=== PATIENT | female | born 1940 | race Caucasian/White ===

== ENCOUNTER 2023-07-26 06:37 | Inpatient (IN) | payer MEDICARE, SELFPAY ==
[2023-07-25 19:33] VITALS: BP 100/66
[2023-07-25 20:07] LABS: % Basophils 0.5 % (0-2); % Eosinophils 1.2 % (0-6); % Immature Granulocytes 0.6 % (0-0.5); % Lymphocytes 11.9 % (20.5-51.1); % Monocytes 3.6 % (1.7-9.3); % Neutrophils 82.2 % (42.2-75.2); Absolute Basophils 0.1 10^3/uL (0-0.2); Absolute Eosinophils 0.1 10^3/uL (0-0.7); Absolute Immature Granulocytes 0.1 10^3/uL (0-0.05); Absolute Lymphocytes 1.2 10^3/uL (1.2-3.4); Absolute Monocytes 0.4 10^3/uL (0.1-0.6); Absolute Neutrophils 8.4 10^3/uL (1.4-6.5); Hematocrit 38.1 % (37.0-47.0); Hemoglobin 12.9 g/dL (12.0-16.0); Mean Corp Hgb Conc. 33.9 g/dL (33.0-37.0); Mean Corpuscular Volume 88.6 fL (81.0-99.0); Mean Platelet Volume 9.9 fL (7.4-10.4); Nucleated Red Blood Cells % 0 %; Platelet Count 240 10^3/uL (130-400); Red Cell Dist. Width 13.3 % (11.5-14.5); White Blood Cell Count 10.2 10^3/uL (4.8-10.8)
[2023-07-25 20:31] LABS: ALT (SGPT) 17 U/L (0-35); AST (SGOT) 20 U/L (14-36); Albumin 4.1 g/dl (3.5-5.0); Alkaline Phosphatase 71 U/L (38-126); Blood Urea Nitrogen 34 mg/dl (7-17); Calcium 9.8 mg/dl (8.4-10.2); Carbon Dioxide 23 mmol/L (22-30); Chloride 102 mmol/L (98-107); Glucose 131 mg/dl (70-99); Sodium 135 mmol/L (135-145); Total Bilirubin 0.5 mg/dl (0.2-1.3); Total Protein 6.9 g/dl (6.3-8.2); eGFR 49.55
[2023-07-25 20:37] LABS: Potassium 4.6 mmol/L (3.5-5.1)
[2023-07-25 22:41] VITALS: BP 141/70; BP 144/81; BP 156/85; PULSE 69; PULSE 78; PULSE 84
--- NOTE | 2023-07-25 22:41 | ED.GENMED ---
History of Present Illness
General
Chief Complaint: Dizziness
Source: patient and family
Exam Limitations: none
Time Seen by Provider: 07/25/23 21:56
Nursing documentation reviewed up to this point in time: agreed with
Travel History
Have you had any contact with someone who has COVID-19?: No
Do you have any symptoms of coronavirus? Fever > 100 degrees, chills, cough, shortness of breath, sore throat, loss of taste or smell, muscle aches, or headache?: No
History of Present Illness
History of Present Illness:
Pleasant 83-year-old female who presents with vertigo. She states that the room is spinning around her. She states that she awakened with the symptoms. She reports that they were sent around noon and persistent throughout the day. Patient has a
history of migraines but states that she did not have any headache today. She does report having a recent UTI.
Phy Exam
General Physical Exam
General Presentation: well appearing and no apparent distress
General Skin: warm and dry
General Habitus: normal
General Mental: alert
General Hydration: appears well hydrated
ENT Exam
ENT Exam: EOMI, pharynx normal, neck supple and normocephalic
Eye Exam
Eye Exam: PERRL, cornea clear and conjunctiva normal
Cardiovascular Exam
Cardiovascular Exam: regular rate/rhythm, no edema, no murmur and normal peripheral pulses
Pulmonary Exam
Pulmonary Exam: lungs clear, no respiratory distress, no rales, no crackles, no rhonchi, no stridor, no wheezing and no cough
Gastrointestinal Exam
Gastrointestinal Exam: normal bowel sounds, non tender, soft, no organomegaly, no pulsatile mass and non distended
Neurological Exam
Neurological Exam: alert, oriented x3, speech normal and other (dizziness)
Musculoskeletal Exam
Musculoskeletal Exam: full ROM and no edema
Skin Exam
Skin Exam: normal color, warm/dry, no rash and no petechia
Psychiatric Exam
Psychiatric Exam: normal mood/affect
Course
Orders/Labs/Results
Orders:
Orders
07/25/23 19:46
Electrocardiogram (*1) Urgent
Reason for Study: Abdominal Pain
EKG- Treatment ONCE
07/25/23 19:56
Complete Blood Count/With Diff Urgent
Comprehensive Metabolic Panel Urgent
07/25/23 22:40
0.9% Sodium Chloride 1000 ml [Nss] 1,000 ml IV BOLUS
07/25/23 22:41
Orthostatic VS- Treatment ONCE
07/25/23 23:23
Urinalysis Reflex To Culture Urgent
Date Specimen was Collected: 07/25/23
Time Specimen was Collected: 23:22
Urine Microscopic Reflex Cult Urgent
Urine Culture Urgent
MELISA Source: U
Specimen Description:
Date Specimen was Collected: 07/25/23
Time Specimen was Collected: 23:22
07/26/23 00:10
Fosfomycin [Monurol] 3 gm PO ONCE ONE
07/26/23 01:18
Prochlorperazine [Compazine] 10 mg IV NOW STA
07/26/23 02:13
CT Head W/o Iv Contrast Urgent
Comment:
Reason For Exam: dizziness
Abnormal Lab Results
07/25/23 07/25/23
19:56 23:23
Abs Immat Gran (auto) 0.1 H 10^3/uL
(0-0.05)
Absolute Neuts (auto) 8.4 H 10^3/uL
(1.4-6.5)
Immature Gran % 0.6 H %
(0-0.5)
Neutrophils % 82.2 H %
(42.2-75.2)
Lymphocytes % 11.9 L %
(20.5-51.1)
BUN 34 H mg/dl
(7-17)
Creatinine 1.1 H mg/dL
(0.6-1.0)
Glucose 131 H mg/dl
(70-99)
Urine Ketones Trace A
(Negative)
Ur Occult Blood Reflex Trace A
(Negative)
Urine Nitrite (Reflex) Positive A
(Negative)
Leukocyte Esterase Rfl 2+ A
(Negative)
Urine WBC (Reflex) >100 A /HPF
(0-5)
Urine Bacteria (Reflex) Moderate A
(Negative)
07/25/23 19:56
07/25/23 19:56
Vital Signs
Initial and Last Documented VS:
Initial Vital Signs
Temp Pulse Resp BP Pulse Ox
97.7 F 70 16 100/66 96
07/25/23 19:33 07/25/23 19:33 07/25/23 19:33 07/25/23 19:33 07/25/23 19:33
Last Documented Vital Signs
Temp Pulse Resp BP Pulse Ox
97.7 F 70 16 100/66 96
07/25/23 19:33 07/25/23 19:33 07/25/23 19:33 07/25/23 19:33 07/26/23 00:00
*Critical Care Note
Total Time (30-74mins, 75-104mins- exclusive of procedures): Not Applicable
Update Note
Update Note:
07/26/2023 0012 AM: Urinalysis shows UTI. Fosfomycin ordered.
US appendix
No prior imaging for comparison
IMPRESSION:
Nonvisualization of the appendix in the right lower quadrant. No significant free fluid or recruited/edematous fat. Floating Derrick Operator reports no significant tenderness on graded compression of the right lower quadrant. If there is persistent clinical
suspicion for appendicitis, consider CT/MRI or repeat ultrasound after observation.
The results were faxed/finalized only (1:28 AM ET). If you would like to discuss this case directly please call [phone]. If you can not reach me at this number, do not leave a voicemail; please ask for the next available radiologist.
ED Attending Note
-
Portions of this chart may have been created with voice recognition software.� Occasional wrong word or��sound alike� substitutions may have occurred due to the inherent limitations of voice recognition software.
Discharge Plan
Departure
Patient Disposition: Admit
Date of Disposition: 07/26/23
Time of Disposition: 03:21
Admit to: Telemetry
Presentation/result/management discussed w/ accepting MD/DO: Hospitalist
Condition: Good
Discharge Problem:
Acute UTI, Dizziness
Prescriptions:
No Action
Unobtainable
0
Rx Instructions:
pt states she is unaware of daily medicaitons, takes BP and thyroid medicatons
Referrals:
NONE,* [Family Provider] -
Interventions
Interventions:
*Risk Screen - Suicide Last Done: 07/25/23 19:33
*Neglect/Abuse Screening Last Done: 07/25/23 19:33
ED- Fall Risk Assessment Last Done: 07/25/23 19:33
*ED COVID-19 Vaccine History Last Done: 07/25/23 19:33
ED- Neurological Assessment Last Done: 07/26/23 00:08
ED- Cardiac Assessment Last Done: 07/26/23 00:08
Discharge Date and Time
Print Language: MACEDONIAN
[2023-07-25] MEDS: NSS 1000 IV (23:01)
[2023-07-25 23:34] LABS: Urine Albumin Negative (Neg - Trace); Urine Bilirubin Negative (Negative); Urine Character Slightly Cloudy (Clear); Urine Color Yellow; Urine Glucose Negative (Negative); Urine Ketone Trace (Negative); Urine Leukocyte 2+ (Negative); Urine Nitrite Positive (Negative); Urine Occult Blood Trace (Negative); Urine Specific Gravity 1.015 (<1.030); Urine Urobilinogen Negative (Neg - 1+)
[2023-07-25 23:57] LABS: Urine White Cell >100 /HPF (0-5)
[2023-07-25 23:58] LABS: Urine Bacteria Moderate (Negative); Urine Red Blood Cell None Seen /HPF (0-2)
[2023-07-26] VITALS (14 sets, daily range): BP systolic 121–167; BP diastolic 56–100; PULSE 78–101; BMI 37.0
[2023-07-26] MEDS: MONUROL 3 GM PO (00:34)
[2023-07-26] MEDS: COMPAZINE 10 MG IV ×2 (01:30→09:20)
--- NOTE | 2023-07-26 06:06 | HPS.HSE ---
Family Physician
-
Family Physician: * NONE
Chief Complaint
-
dizziness
History of Present Illness
83F seen at ER for Dizzines. Recent HX UTI
She came to [facility] for evaluation of Vertigo. No prior HX Vertigo
Described as like room and objects are spinning around her when she woke up.
It persist the whole day.
Worse with standing up
Asso with nausea but not vomiting
Denied PATEL.
HX Migraine
Medical History
Past Medical History
Past Medical History: Reports None
Past Surgical History: Reports None
Social History
Tobacco: Non-smoker
Alcohol: None
Family History
Family History: Not pertinent
Allergies / Home Medications
Allergies reflects when Allergies were last updated in [facility].
Home Medications with original date entered in [facility]
Allergy/Medication List:
Allergies
Allergy/AdvReac Type Severity Reaction Status Date / Time
No Known Allergies Allergy Unverified 07/25/23 19:33
Home Medications
Unobtainable 07/26/23
If medication reconciliation has not been performed, why?: Medication List N/A
Review of Systems
-
Constitutional: Reports No Symptoms
EENT: Reports No Symptoms
Respiratory: Reports No Symptoms
Cardiac: Reports No Symptoms
Abdomen/GI: Reports No Symptoms
: Reports No Symptoms
Musculoskeletal: Reports No Symptoms
Skin: Reports No Symptoms
Neurological: Reports Dizzy
Endocrine: Reports No Symptoms
Hematologic/Lymphatic: Reports No Symptoms
Psych: Reports No Symptoms
Physical Exam
Vital Signs
Vital Signs
Temp Pulse Resp BP Pulse Ox
97.7 F 70 16 137/85 95
07/25/23 19:33 07/25/23 19:33 07/25/23 19:33 07/26/23 05:00 07/26/23 05:30
Physical Exam
General: No Apparent Distress and Other (not toxic )
HEENT: NormoCephalic, Anicteric, Moist mucous membranes, Atraumatic and PERRLA
Respiratory: Clear; No Wheezes, Rales or Rhonchi
Cardiac: S1/S2 and Regular Rhythm; No Bradycardia or Tachycardia
Breast: Deferred by me
GI: Soft, Non Tender, Non Distended and Normal Bowel Sounds
Rectal: Deferred by Provider
Genito-urinary: Deferred by me
Musculoskeletal: No Edema
Skin: Warm and Dry
Neuro: AO x 3, Nonfocal/grossly intact and Other (no nystagmus )
Psych: Calm
Laboratory Results
-
07/25/23 19:56
07/25/23 19:56
Laboratory Results
Total Bilirubin 0.5 mg/dl (0.2-1.3) 07/25/23 19:56
AST 20 U/L (14-36) 07/25/23 19:56
ALT 17 U/L (0-35) 07/25/23 19:56
Alkaline Phosphatase 71 U/L (38-126) 07/25/23 19:56
Data Reviewed
-
Lab Data: Labs Reviewed by me
Impression/Plan
-
Reviewed VS: afebrile HR 70 BP 135/85 RR 16 POx 95 on RA
Data
nl CBC
BUN 34
Cr 1.1
eGFR 49
BG 131
EKG
NSR
nl EKG
Abn UA WCC >100
HCT: No acute processes
No prior admission
ASSESSMENT & PLAN
Abrupt onset of Vertigo - Peripheral vs Central origin : NEG HCT
No vertigo when lying flat
Worse with standing up
Asso with nausea but not vomiting
- Ortho VSS
- Supportive care: Antivert PRN, IVF
- fall precaution
- PT/OT
- Neuro consult
UA suggestive of persistent UTI
s/p Fosfomycin
- f/u UCx
DVT Px: LMWH
Code: Full code
Ip TLM
--- NOTE | 2023-07-26 08:43 | CON.NEURO4 ---
Addendum entered and electronically signed by Deepak Betancourt MD 07/26/23 14:04:
Studies reviewed.
I have personally examined the patient. I reviewed and agree with the DERRICK BOAT OPERATOR's Note.
My addenda:
Awake, alert, interactive. No acute distress.
Speech intact.
Follows 2-step requests w/o difficulty. No tremor. Hints testing reproduced symptoms especially with head impulse testing.
Extra-ocular movements grossly intact.
Facial movements full and symmetric. Hearing intact to normal conversational volume.
Normal UE movements bilaterally. Presence of distal tremor in bilateral hands, with action, not clearly at rest.
Neck: full ROM.
Chest: no dyspnea
Heart: no JVD
Ext: (-) Clubbing, (-) Cyanosis, (-) Edema
IMPRESSIONS/RECOMMENDATIONS:
Abrupt onset of vertigo, recurrent, with patient also experiencing chronic daily headaches and progressive gait decline.
Differential diagnosis remains broad and includes progressive degenerative disorders is likely than vestibular migraine or toxic metabolic encephalopathy based on the patient's current urinary tract infection
Provide combination of medications including rizatriptan, prochlorperazine, dimenhydrinate
Follow orthostatic blood pressures
Check blood work for potential metabolic abnormalities
Can consider additional neuroimaging dependent on patient's improvement or worsening after therapies including treatment for urinary tract infection
D/W patient
All questions answered.
Will continue to follow pending results.
Original Note:
Documented by User: Caitlin Lubin NP 07/26/23 11:47
Consultation - Neurology 4
-
CONSULTING PHYSICIAN: Deepak Betancourt MD
REFERRING PHYSICIAN: Hospitalists/Dr. Pantoja
DICTATED BY: KEYUR Pitts
DATE/TIME OF REQUEST: 07/26/23
DATE/TIME OF CONSULTATION: 07/26/23
Reason for Consultation: Vertigo
History of Present Illness:
This is an 83-year-old female who has presented to the hospital on 07/25/23 with report of vertigo. Patient reports a history of vertigo on and off for the past 10 years. Her episodes of vertigo typically occur when she has a UTI. Her vertigo is
typically mild and she is still able to ambulate when it occurs. She also reports severe car sickness and she takes meclizine PRN. She recently had a UTI in June 2023 and completed a course of Keflex. She also endorses a history of somewhat
frequent falls for the past 10 years. She was using a single point cane at first but one year ago she started using a rolling walker. 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
younger years. Her migraines have resolved but now she endorses a chronic, daily headache starting 1-2 years ago. She used to take Fioricet which helped relieve her headaches but she hasn't taken this in years. She has never had dizziness with her
headaches in the past. Her bilateral fingers started having a tingling sensation one year ago, and she notes urinary incontinence issues but cannot recall when this started.
Yesterday (07/25/23), she reports being in her usual state when she suddenly developed vertigo in the afternoon prior to leaving to drive to her family member's house for dinner. She describes the dizziness as an entire room spinning sensation. It
was more severe than usual to the point that she wasn't able to ambulate with her walker and had to call her family to come over and help her, who then brought her to the ER for evaluation. CT head was obtained in the ER and is negative for any
acute abnormalities. UA is highly suggestive of a UTI. Currently, patient reports that her vertigo is persistent. It resolves completely when she is at rest lying down but with any movement or sitting up it starts again. She denies nausea/vomiting.
She also endorses an 8/10 headache and a back ache. She denies any vision changes, speech/swallow difficulty, weakness, chest pain, palpitations, and shortness of breath. She denies any history of TIA or stroke in the past and she is not taking any
blood-thinning medications.
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
Surgical History: Unknown.
Family History: Reviewed and noncontributory.
Social History: Denies tobacco, alcohol, and illicit drug use.
Allergies: No known allergies.
Home Medications:
Review of Symptoms:
Patient denies any fever, chest pain, shortness of breath, GI symptoms.
�Per the HPI.�All systems are reviewed negative except above.
Physical Exam:
The patient is afebrile, abdomen is nondistended, breathing is unlabored, skin is warm and dry, no edema.
Neurologic Examination:
The patient is awake, alert and oriented x 3 but forgetful, unable to state most recent/next holidays. She is able to follow one-step commands and answer questions appropriately. Moderate difficulty following two-step commands. There is no aphasia
or dysarthria. On cranial nerve assessment, pupils are 3 mm bilateral, round and reactive to light and accommodation. Visual manjarrez are full. Extraocular movements are intact. No nystagmus. Facial sensations are intact and bilaterally symmetrical,
there is no facial asymmetry. Hearing is diminished on the right to finger rub. Tongue palate and uvula are midline. Sternocleidomastoid strengths are full bilaterally. Motor strengths are 5/5 bilateral upper and lower extremities on medical
research [place] scale. There is no drift. There is a low amplitude distal upper extremity tremor with action. Deep tendon reflexes are 2+ bilateral upper and absent bilateral lower extremities and Babinski is absent bilaterally. There was no
extinction noted on double simultaneous stimulation. Coordination is intact by finger to nose bilaterally. Negative test of skew. Unable to tolerate head impulse testing.
Lab Results: See below.
Neuro Imaging:
1. CT Head 07/25/23: No acute intracranial abnormalities. Findings compatible with diffuse cortical atrophy with nonspecific white matter changes as described above.
Differentials for the patient's presentation include:
1. UTI, KEYUR
2. Vestibular migraine possible
3. Vestibular neuritis possible but unusual given absence of nystagmus
4. Orthostasis possibly contributing to symptoms
5. Low concern for stroke.
Patient has the following risk factors for their symptoms: UTI, hx vertigo, hx migraines
Recommendations:
-Provide rizatriptan 10mg PO now.
-Provide prochlorperazine 10mg IV now.
-Provide dimenhydrinate 50mg IV x1 now and q4hrs PRN dizziness.
-Checking blood work for additional metabolic abnormalities.
-Neurological checks per unit guidelines.
-Check orthostatic vital signs BID.
-PT evaluations.
-Do not see a role for further neurological imaging at this point.
-DVT prophylaxis.
Discussed patient care with: Dr. Betancourt, the patient
Vital Signs and Labs
-
Vital Signs and Labs:
Vital Signs
Temp Pulse Resp BP Pulse Ox
97.7 F 71 16 121/74 94
07/25/23 19:33 07/26/23 09:00 07/25/23 19:33 07/26/23 08:00 07/26/23 11:15
Lab Results
07/25/23 19:56
07/25/23 19:56
Sodium 135 mmol/L (135-145) 07/25/23 19:56
Potassium 4.6 mmol/L (3.5-5.1) 07/25/23 19:56
BUN 34 mg/dl (7-17) H 07/25/23 19:56
Glucose 131 mg/dl (70-99) H 07/25/23 19:56
Calcium 9.8 mg/dl (8.4-10.2) 07/25/23 19:56
Medications
-
Active Medications
Generic Name Dose Route Start Last Admin
Trade Name Freq PRN Reason Stop Dose Admin
Dimenhydrinate 50 mg 07/26/23 09:01
Dimenhydrinate 50 Mg/Ml Vial IV 08/23/23 09:00
Q4HPRN PRN
dizziness
Enoxaparin Sodium 40 mg 07/26/23 18:00
Enoxaparin Sodium 40 Mg/0.4 Ml Syringe SC 08/23/23 17:59
QPM RIA
Sodium Chloride 1,000 mls @ 80 mls/hr 07/26/23 08:20 07/26/23 09:27
Nss IV 1,000 mls
.[id number] RIA Administration
Sodium Chloride 0 flush 07/26/23 09:00
Sodium Chloride 0.9% (Flush) Syringe IV 08/23/23 08:59
PER PROTOCOL RIA
Home Medications
�Medication �Instructions �Recorded
Unobtainable 07/26/23
NIH Stroke Score
Subsequent NIH Scale
Date of Subsequent NIH Scale: 07/26/23
Time of Subsequent NIH Scale: 08:30
NIH Stroke Score
Level of Consciousness: 0 - Alert
LOC Questions: 0-Answers both correctly
LOC Commands: 0-Performs both correctly
Best Horizontal Gaze: 0-Normal
Visual Manjarrez: 0=Normal, no visual loss
Facial Palsy: 0=Normal, symmetrical
Motor - Right Arm: 0=No drift 10 seconds
Motor - Left Arm: 0=No drift 10 seconds
Motor - Right Le-No drift 5 seconds
Motor - Left Le-No drift 5 seconds
Limb Ataxia: 0-Absent
Sensation: 0-Normal
Best Language: 0-No aphasia
Dysarthria: 0-Normal
Extinction and Inattention: 0-No abnormality
Total Score:: 0

Documented by User: Deepak Betancourt MD 07/26/23 13:57
NIH Stroke Score
NIH Stroke Score
Total Score:: 0
[2023-07-26] MEDS: NSS 1000 IV (09:27)
[2023-07-26] MEDS: MAXALT MLT (ORALLY DISINTEGRATING) 10 MG PO (09:27)
[2023-07-26] MEDS: dimenhyDRINATE 50 MG IV ×3 (09:27→21:29)
[2023-07-26 11:08] LABS: TSH Reflex To Free T4 0.63 uIU/ml (0.47-4.68)
[2023-07-26 11:40] LABS: Folate 9.9 ng/ml (2.76-20); Vitamin B12 662 pg/ml (239-931)
--- NOTE | 2023-07-26 13:20 | W.PN.HOSP.TC ---
Today's Communication/Plan
-
Consult PT
Assessment / Plan
Assessment / Plan
Gen-AAOx3, NAD
HEENT-NC, AT, anicteric, clear oral mm
Neck-supple
CV-reg, no M, +S1/S2
Lungs-clear B/L
Abd-soft, NT, ND
Ext-no edema
Musculoskeletal-no cyanosis, clubbing
Skin-warm and dry
Neuro-grossly non-focal, no nystagmus
Psych-calm, cooperative
Positional vertigo -suspect peripheral vertigo. Consult PT. As needed meclizine.
Migraine headache, chronic -may have component of medication overuse headache as she takes analgesics on a daily basis. We discussed the importance of discontinuing daily use of analgesics as they can cause headaches themselves.
Currently denies headache. Neurology consulted.
Asymptomatic pyuria -clinically doubt UTI. Emergency department administered a dose of fosfomycin last night. Urine culture pending.
Full code
Anticipated Discharge: Within 24 hours
Subjective/Interval History
-
Date of Service: July 26, 2023
Patient seen and examined. Headache resolved. Still has vertigo with sitting up. No symptoms while supine.
Objective Data
-
Vital Signs:
Vital Signs
Temp Pulse Resp BP Pulse Ox
97.7 F 71 16 121/74 94
07/25/23 19:33 07/26/23 09:00 07/25/23 19:33 07/26/23 08:00 07/26/23 11:15
Review of Systems
-
History Source: Patient
All other systems: Reviewed and negative
[2023-07-26] MEDS: LOVENOX 40 MG SC (17:59)
[2023-07-26] MEDS: NSS (PRESERVATIVE FREE) 10 ML INJ (21:29)
[2023-07-27] MEDS: NSS 1000 IV (05:34)
[2023-07-27] MEDS: dimenhyDRINATE 50 MG IV ×2 (06:13→10:18)
[2023-07-27] MEDS: NSS (PRESERVATIVE FREE) 10 ML INJ ×2 (06:14→10:18)
[2023-07-27] MEDS: TYLENOL 650 MG PO (06:21)
[2023-07-27 07:05] VITALS: BP 134/78
[2023-07-27 07:05] LABS: Hematocrit 34.7 % (37.0-47.0); Hemoglobin 11.6 g/dL (12.0-16.0); Mean Corp Hgb Conc. 33.4 g/dL (33.0-37.0); Mean Corpuscular Hgb 30.4 pg (27.0-31.0); Mean Corpuscular Volume 90.8 fL (81.0-99.0); Mean Platelet Volume 10.1 fL (7.4-10.4); Platelet Count 204 10^3/uL (130-400); Red Blood Cell Count 3.82 10^6/uL (4.20-5.40); Red Cell Dist. Width 13.3 % (11.5-14.5); White Blood Cell Count 5.6 10^3/uL (4.8-10.8)
[2023-07-27 07:30] LABS: Blood Urea Nitrogen 21 mg/dl (7-17); Calcium 8.9 mg/dl (8.4-10.2); Carbon Dioxide 22 mmol/L (22-30); Chloride 107 mmol/L (98-107); Estimated Creatinine Clearance 53 ml/min; Glucose 86 mg/dl (70-99); Potassium 3.6 mmol/L (3.5-5.1); Sodium 136 mmol/L (135-145); eGFR 55.55
[2023-07-27 07:44] LABS: TSH 2.56 uIU/ml (0.47-4.68)
--- NOTE | 2023-07-27 09:44 | W.PN.NEURO.1 ---
Addendum entered and electronically signed by Deepak Betancourt MD 07/27/23 14:16:
Studies reviewed.
I have personally examined the patient. I reviewed and agree with the AIRCRAFT ASSEMBLER's Note.
My addenda:
Awake, alert, interactive. No acute distress.
Speech intact.
No tremor.
Extra-ocular movements grossly intact.
Facial movements full and symmetric. Hearing intact to normal conversational volume.
Normal UE movements bilaterally.
Neck: full ROM.
Chest: no dyspnea
Heart: no JVD
Ext: (-) Clubbing, (-) Cyanosis, (-) Edema
IMPRESSIONS/RECOMMENDATIONS:
Abrupt onset of persistent dizziness and headache
Headache is chronic daily in nature. The patient's dizziness is new
Based on the patient's continued symptomatology
will check MRI of brain for completeness sake although unlikely to see new stroke
Provide rizatriptan
Provide dimenhydrinate
Follow orthostatic blood pressures
Will continue to follow pending results.
Original Note:
Documented by User: Caitlin Lubin NP 07/27/23 11:12
Today's Communication / Plan
-
.
Neuro Assessment/Plan
Assessment
This is an 83-year-old female who presented to on 07/25/23 with report of Abrupt onset of vertigo, recurrent, with patient also experiencing chronic daily headaches and progressive gait decline.
CT Head 07/25/23: No acute intracranial abnormalities. Findings compatible with diffuse cortical atrophy with nonspecific white matter changes as described above.
-Orthostatic vital signs are negative
-Urine culture 07/25/23 +E. Coli
1. Vestibular migraine possible, daily persistent headache
2. Vestibular neuritis possible but unusual given absence of nystagmus and lack of improvement of symptoms
3. KEYUR, urine culture positive for E. Coli
4. Low concern for stroke but possible
Plan
-MRI brain noncontrast ordered/pending given lack of improvement of dizziness.
-Provide rizatriptan 10mg PO now.
-Provide dimenhydrinate 50mg IV x1 now and continue q4hrs PRN dizziness.
-Infectious workup per primary team.
-Neurological checks per unit guidelines.
-Check orthostatic vital signs BID.
-PT evaluations.
-DVT prophylaxis.
Will follow pending results.
Subjective/Objective
Subjective Data
Date of Service: July 27, 2023
Patient reports that her dizziness is persistent, still occurring with position change but resolves at rest. She endorses a mild headache and discomfort behind her left eye, she rates this a 4/10. Tylenol helps relieve her discomfort only slightly.
She denies any vision changes, speech/swallow difficulty, dysuria, numbness, weakness, chest pain, palpitations, and shortness of breath.
Objective Data
Vital Signs
Temp Pulse Resp BP Pulse Ox
98.2 F 67 18 134/78 94
07/27/23 07:05 07/27/23 07:05 07/27/23 07:05 07/27/23 07:05 07/27/23 07:05
Lab Results
07/27/23 06:28
07/27/23 06:28
Sodium 136 mmol/L (135-145) 07/27/23 06:28
Potassium 3.6 mmol/L (3.5-5.1) 07/27/23 06:28
BUN 21 mg/dl (7-17) H 07/27/23 06:28
Glucose 86 mg/dl (70-99) 07/27/23 06:28
Calcium 8.9 mg/dl (8.4-10.2) 07/27/23 06:28
Vitamin B12 662 pg/ml (239-931) 07/26/23 19:56
Patient Allergies
No Known Allergies Allergy (Unverified 07/25/23 19:33)
Review of Systems
-
History Source: Patient
Respiratory: Negative Cough or Trouble Breathing
Cardiac: Negative Chest Pain or Palpitations
Abdomen/GI: Negative Nausea
Genitourinary: Negative Dysuria or Difficulty Voiding
Neuro: Dizzy and Headache; Negative Weakness, Numbness, Ataxia or Speech Problem
Physical Exam
-
General: Well Developed, Well Nourished and No Apparent Distress
Eyes: No Ptosis and PERRLA
HEENT: Normocephalic and Atraumatic
Neck: Full Range of Motion
Respiratory: No Dyspnea
GI: Non-distended
Extremities: No Clubbing, No Cyanosis and No Edema
Extended Neurological Exam
Mood & Affect: Mood Unremarkable and Affect Unremarkable
Attention Span & Concentration: Awake, Alert and Interactive
Memory: Reduced (AAOx3 but forgetful)
Tremor: Hand Tremor Absent and Head Tremor Absent
Involuntary Movement: None
Speech: Quality Unremarkable, Quantity Unremarkable and Rate of Production Unremarkable
Cranial Nerve II: Left Eye: Pupillary Reactivity Unremarkable, Pupillary Size Unremarkable and Visual Manjarrez Intact
Cranial Nerve II: Right Eye: Pupillary Reactivity Unremarkable, Pupillary Size Unremarkable and Visual Manjarrez Intact
Cranial Nerves III, IV, : Extraocular Movement: Extraocular Movement Full in all Directions
Cranial Nerve VII: Facial Symmetry: Normal Facial Symmetry
Cranial Nerve VIII: Hearing: Unremarkable Hearing to Normal Conversational Volume
Cranial Nerves IX, X: Palate Movement: Palate Elevation Symmetric
Cranial Nerve XI: Shoulder Shrug: Unremarkable
Cranial Nerve XII: Tongue Protusion: Midline
Muscle Strength, Overall: Full Throughout
Muscle Bulk & Tone: Bulk Unremarkable and Tone Unremarkable
Pronator Drift: No Drift in Upper Extremities and No Drift in Lower Extremities
Coordination: [id number] Testing Unremarkable
Data Reviewed
-
CT Head: Report Reviewed and Image Reviewed
Orthostatic Testing: Report Reviewed
Labs: Report Reviewed
Reviewed with: Physician and Patient
Medications
-
Active Medications
Generic Name Dose Route Start Last Admin
Trade Name Freq PRN Reason Stop Dose Admin
Acetaminophen 650 mg 07/26/23 18:09 07/27/23 06:21
Acetaminophen 325 Mg Tablet PO 08/23/23 18:08 650 mg
Q6HPRN PRN Administration
mild pain/ fever>100.5F
Dimenhydrinate 50 mg 07/26/23 09:01 07/27/23 06:13
Dimenhydrinate 50 Mg/Ml Vial IV 08/23/23 09:00 50 mg
Q4HPRN PRN Administration
dizziness
Enoxaparin Sodium 40 mg 07/26/23 18:00 07/26/23 17:59
Enoxaparin Sodium 40 Mg/0.4 Ml Syringe SC 08/23/23 17:59 40 mg
QPM RIA Administration
Sodium Chloride 1,000 mls @ 80 mls/hr 07/26/23 08:20 07/27/23 05:34
Nss IV 1,000 mls
[id number] RIA Administration
Sodium Chloride 0 flush 07/26/23 09:00
Sodium Chloride 0.9% (Flush) Syringe IV 08/23/23 08:59
PER PROTOCOL RIA
Sodium Chloride 10 ml 07/26/23 22:00 07/27/23 10:18
Sodium Chloride 0.9% (Preservative Free) 10 Ml Vial INJ 08/23/23 21:59 10 ml
Q4HPRN PRN Administration
IV dimenhyDRINATE dilution
Home Medications
�Medication �Instructions �Recorded
acetaminophen 500 mg tablet 500 mg PO DAILY@2000 Pain 07/26/23
albuterol sulfate 90 mcg/actuation 2 puff inhalation R DAILYPRN PRN 07/26/23
aerosol inhaler sob
fluoxetine 60 mg tablet 60 mg PO DAILY mental health 07/26/23
fluticasone furoate 100 1 inh inhalation R DAILY 07/26/23
mcg-vilanterol 25 mcg/dose Lung/Breathing Issues
inhalation powder
levothyroxine 112 mcg tablet 112 mcg PO DAILY@0600 Thyroid 07/26/23
lisinopril 10 1 tab PO BID@0800,2000 Blood 07/26/23
mg-hydrochlorothiazide 12.5 mg Pressure
tablet
magnesium glycinate 100 mg PO DAILY Supplement 07/26/23
meclizine 12.5 mg tablet 12.5 mg PO BIDPRN PRN dizziness 07/26/23
montelukast 10 mg tablet 10 mg PO DAILY Allergies 07/26/23
naproxen sodium 220 mg tablet 220 mg PO Q4HPRN PRN mild pain 07/26/23
omeprazole 40 mg capsule,delayed 40 mg PO DAILY@0600 07/26/23
release Gastrointestinal Issue
NIH Stroke Score
Subsequent NIH Scale
Date of Subsequent NIH Scale: 07/27/23
Time of Subsequent NIH Scale: 09:30
NIH Stroke Score
Level of Consciousness: 0 - Alert
LOC Questions: 0-Answers both correctly
LOC Commands: 0-Performs both correctly
Best Horizontal Gaze: 0-Normal
Visual Manjarrez: 0=Normal, no visual loss
Facial Palsy: 0=Normal, symmetrical
Motor - Right Arm: 0=No drift 10 seconds
Motor - Left Arm: 0=No drift 10 seconds
Motor - Right Le-No drift 5 seconds
Motor - Left Le-No drift 5 seconds
Limb Ataxia: 0-Absent
Sensation: 0-Normal
Best Language: 0-No aphasia
Dysarthria: 0-Normal
Extinction and Inattention: 0-No abnormality
Total Score:: 0

Documented by User: Deepak Betancourt MD 07/27/23 14:12
NIH Stroke Score
NIH Stroke Score
Total Score:: 0
[2023-07-27] MEDS: MAXALT MLT (ORALLY DISINTEGRATING) 10 MG PO (10:18)
[2023-07-27 10:59] VITALS: BP 130/75; PULSE 68; O2SAT 94
--- NOTE | 2023-07-27 13:39 | W.PN.HOSP.TC ---
Today's Communication/Plan
-
Await brain MRI
Resume meds
Assessment / Plan
Assessment / Plan
Gen-AAOx3, NAD
HEENT-NC, AT, anicteric, clear oral mm
Neck-supple
CV-reg, no M, +S1/S2
Lungs-clear B/L
Abd-soft, NT, ND
Ext-no edema
Musculoskeletal-no cyanosis, clubbing
Skin-warm and dry
Neuro-grossly non-focal, no nystagmus
Psych-calm, cooperative
Positional vertigo -suspect peripheral vertigo. Continue PT, vestibular therapy. Neurology has ordered brain MRI to rule out stroke.
Migraine headache, chronic -may have component of medication overuse headache as she takes analgesics on a daily basis. We discussed the importance of discontinuing daily use of analgesics as they can cause headaches themselves.
Pyuria -clinically doubt UTI. Emergency department administered a dose of fosfomycin last night. Urine culture shows mixed isabela, likely contamination. She has had urinary symptoms for more than a month and I recommend outpatient urogynecology
follow-up with Dr. Escobar. Suspect noninfectious dysuria. Discussed with patient.
Hypothyroidism -resume levothyroxine.
Essential hypertension -stable. Resume home meds.
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
Mild intermittent asthma -stable.
Obesity due to excess calories
Full code
Dispo -will need SNF on discharge according to PT.
Anticipated Discharge: Within 24 hours
Subjective/Interval History
-
Date of Service: July 27, 2023
Patient seen and examined. Sitting in the chair and asymptomatic but complains of vertigo with any head movement. Mild headache.
Objective Data
-
Labs:
Laboratory Results
07/27/23
06:28
WBC 5.6
Hgb 11.6 L
Hct 34.7 L
Plt Count 204
Sodium 136
Potassium 3.6
Chloride 107
Carbon Dioxide 22
BUN 21 H
Creatinine 1.0
Glucose 86
Calcium 8.9
Vital Signs:
Vital Signs
Temp Pulse Resp BP Pulse Ox
98.2 F 67 18 134/78 94
07/27/23 07:05 07/27/23 07:05 07/27/23 07:05 07/27/23 07:05 07/27/23 07:05
I&O
07/26/23 07/27/23 07/28/23
06:59 06:59 06:59
Intake Total 1440 / 1440
Output Total 950 / 950
Balance 490 / 490
Review of Systems
-
History Source: Patient
All other systems: Reviewed and negative
[2023-07-27 14:12] LABS: HDL Cholesterol 35 mg/dl; LDL Cholesterol, Calculated 104 mg/dl; Total Cholesterol 183 mg/dl (50-199); Triglyceride 222 mg/dl (10-149); Very Low Density Lipoprotein 44 mg/dl (0-30)
[2023-07-27 14:14] LABS: Glycohemoglobin (HgbA1c) 5.7 % (4.0-5.6)
--- NOTE | 2023-07-27 14:57 | PN.CDI ---
CDI
- -
CDI:
Physician Documentation Request
Admit Date: 07/26/23 06:37
Dear Doctor Scarlett,
Please review the following and provide your response in the progress notes.
Clinical Indicators:
- per H&P, patient with no PMH
- Current Labs as follows:
Laboratory Tests
07/25/23 07/27/23
19:56 06:28
Creatinine 1.1 H 1.0
eGFR 49.55 55.55
Please clarify which of the following accurately represents the patient's renal status:
CKD 3a
Clinically insignificant abnormal lab value
Other
Stages of Chronic Kidney Disease*
Level Description GFR
G1 Normal or High >90
G2 Mildly decreased 60-89
G3a Mildly to moderately decreased 45-59
G3b Moderately to severely decreased 30-44
G4 Severely decreased 15-29
G5 Kidney failure <15
Use of terms such as suspected, likely, concern for, or probable (associated with a specific diagnosis that is being evaluated, monitored, or treated as if it exists) are acceptable and can be coded in the inpatient setting, when documented at the
time of discharge.
Thank you,
Janusz Mancuso RN
CDI Specialist
Please use your independent medical judgment in providing your response.
*Source: Kidney Disease: Improving Global Outcomes (KDIGO) 2012
[2023-07-27] MEDS: PROTONIX 40 MG PO (14:59)
[2023-07-27 15:05] VITALS: BP 133/78
--- NOTE | 2023-07-27 16:20 | CM ---
CM met with pt bedside
Pt notes she mpved two weeks prior to from [place]
She believes she is in an assisted living unit
Pt notes independence with ADLs with use of WW
Staff administer medications
PCP- Pt does not know name
Rx- [facility]
VM left for nursing to discuss PLOF, PCP info and ability to return to unit
SNF recommended by therapy
Will await call back to determine if pt needs SNF or can return to facility
Pt will have qualifying stay on 07/28
Discharge Disposition- return to assisted living vs SNF
[2023-07-27] MEDS: NSS IV (17:08)
[2023-07-27] MEDS: LOVENOX 40 MG SC (17:16)
[2023-07-27] MEDS: SYMBICORT 80/4.5 MCG INHALER 2 PUFF INH (19:27)
[2023-07-27] MEDS: ORETIC 12.5 MG PO (20:44)
[2023-07-27] MEDS: ZESTRIL 10 MG PO (20:50)
[2023-07-27 23:32] VITALS: BP 139/71
[2023-07-28 06:00] VITALS: BMI 36.4
[2023-07-28] MEDS: SYNTHROID 112 MCG PO (06:26)
[2023-07-28 07:00] VITALS: BP 137/72
[2023-07-28] MEDS: SYMBICORT 80/4.5 MCG INHALER INH ×2 (07:48→19:32)
[2023-07-28] MEDS: PROTONIX 40 MG PO (08:07)
[2023-07-28] MEDS: PROZAC 60 MG PO (08:07)
[2023-07-28] MEDS: SINGULAIR 10 MG PO (08:07)
[2023-07-28] MEDS: ZESTRIL 10 MG PO ×2 (08:07→19:58)
[2023-07-28] MEDS: ORETIC 12.5 MG PO ×2 (08:07→19:58)
--- NOTE | 2023-07-28 09:36 | W.PN.NEURO.1 ---
Today's Communication / Plan
-
-Provided rizatriptan 10mg PO.
-Provide dimenhydrinate 50mg q4hrs PRN dizziness.
Neuro Assessment/Plan
Assessment
This is an 83-year-old female who presented to on 07/25/23 with report of Abrupt onset of vertigo, recurrent, with patient also experiencing chronic daily headaches and progressive gait decline.
CT Head 07/25/23: No acute intracranial abnormalities. Findings compatible with diffuse cortical atrophy with nonspecific white matter changes as described above.
MRI of brain demonstrating diffuse white matter changes and significant atrophy
-Orthostatic vital signs are negative
-Urine culture 07/25/23 +E. Coli
1. Vestibular migraine possible, daily persistent headache
2. Vestibular neuritis possible but unusual given absence of nystagmus and lack of improvement of symptoms
Plan
-Provided rizatriptan 10mg PO, would provide as needed.
-Provide dimenhydrinate 50mg q4hrs PRN dizziness.
-PT evaluations.
-DVT prophylaxis.
Will follow as needed. Patient should follow-up in office.
Subjective/Objective
Subjective Data
Date of Service: July 28, 2023
Objective Data
Vital Signs
Temp Pulse Resp BP Pulse Ox
36.7 C 69 18 137/72 95
07/28/23 07:00 07/28/23 08:07 07/28/23 07:00 07/28/23 08:07 07/28/23 07:00
Lab Results
07/27/23 06:28
07/27/23 06:28
Sodium 136 mmol/L (135-145) 07/27/23 06:28
Potassium 3.6 mmol/L (3.5-5.1) 07/27/23 06:28
BUN 21 mg/dl (7-17) H 07/27/23 06:28
Glucose 86 mg/dl (70-99) 07/27/23 06:28
Calcium 8.9 mg/dl (8.4-10.2) 07/27/23 06:28
LDL Cholesterol, Calc 104 mg/dl 07/27/23 06:28
Vitamin B12 662 pg/ml (239-931) 07/26/23 19:56
Patient Allergies
No Known Allergies Allergy (Unverified 07/25/23 19:33)
Past History
Past History
ED Past Medical History: Asthma and Other (Chronic daily headache, meningitis age 27)
Social History
Tobacco: Non-smoker
Alcohol: None
Drug: None
Family History
Family History: Other (Reviewed and noncontributory)
Medications
-
Medications:
Generic Name Dose Route Start Last Admin
Trade Name Freq PRN Reason Stop Dose Admin
Acetaminophen 650 mg 07/26/23 18:09 07/27/23 06:21
Acetaminophen 325 Mg Tablet PO 08/23/23 18:08 650 mg
Q6HPRN PRN Administration
mild pain/ fever>100.5F
Albuterol 2 puff 07/27/23 13:46
Albuterol Hfa [90 Mcg/Dose] Inhaler INH
R DAILYPRN PRN
sob
Protocol
Budesonide/Formoterol Fumarate 2 puff 07/27/23 20:00 07/28/23 07:48
Symbicort Inhaler 80/4.5 INH 08/24/23 19:59 Not Given
R BID RIA
Dimenhydrinate 50 mg 07/26/23 09:01 07/27/23 06:13
Dimenhydrinate 50 Mg/Ml Vial IV 08/23/23 09:00 50 mg
Q4HPRN PRN Administration
dizziness
Enoxaparin Sodium 40 mg 07/26/23 18:00 07/27/23 17:16
Enoxaparin Sodium 40 Mg/0.4 Ml Syringe SC 08/23/23 17:59 40 mg
QPM RIA Administration
Fluoxetine HCl 60 mg 07/28/23 08:00 07/28/23 08:07
Fluoxetine 20 Mg Capsule PO 08/25/23 07:59 60 mg
DAILY RIA Administration
Hydrochlorothiazide 12.5 mg 07/27/23 20:00 07/28/23 08:07
Hydrochlorothiazide 12.5 Mg Tablet PO 08/24/23 19:59 12.5 mg
BID RIA Administration
Levothyroxine Sodium 112 mcg 07/28/23 06:00 07/28/23 06:26
Levothyroxine 112 Mcg Tablet PO 08/25/23 05:59 112 mcg
DAILY@0600 RIA Administration
Lisinopril 10 mg 07/27/23 20:00 07/28/23 08:07
Lisinopril 10 Mg Tablet PO 08/24/23 19:59 10 mg
BID RIA Administration
Montelukast Sodium 10 mg 07/28/23 08:00 07/28/23 08:07
Montelukast Sodium 10 Mg Tablet PO 08/25/23 07:59 10 mg
DAILY RIA Administration
Pantoprazole Sodium 40 mg 07/27/23 14:00 07/28/23 08:07
Pantoprazole 40 Mg Delayed Release Tablet PO 08/24/23 13:59 40 mg
DAILY RIA Administration
Sodium Chloride 0 flush 07/26/23 09:00
Sodium Chloride 0.9% (Flush) Syringe IV 08/23/23 08:59
PER PROTOCOL RIA
Sodium Chloride 10 ml 07/26/23 22:00 07/27/23 10:18
Sodium Chloride 0.9% (Preservative Free) 10 Ml Vial INJ 08/23/23 21:59 10 ml
Q4HPRN PRN Administration
IV dimenhyDRINATE dilution
--- NOTE | 2023-07-28 09:36 | W.PN.HOSP.TC ---
Addendum entered and electronically signed by Hawk Pantoja DO 07/28/23 14:22:
Renal insufficiency according to lab work but unclear if chronic kidney disease versus insignificant laboratory value.
Creatinine is 1.0, BUN 21, estimated creatinine clearance 53.
Original Note:
Today's Communication/Plan
-
Discharge
Assessment / Plan
Assessment / Plan
Gen-AAOx3, NAD
HEENT-NC, AT, anicteric, clear oral mm
Neck-supple
CV-reg, no M, +S1/S2
Lungs-clear B/L
Abd-soft, NT, ND
Ext-no edema
Musculoskeletal-no cyanosis, clubbing
Skin-warm and dry
Neuro-grossly non-focal, no nystagmus
Psych-calm, cooperative
Positional vertigo -suspect peripheral vertigo. Continue PT, vestibular therapy. Brain MRI negative for stroke. Her vertigo is chronic, she states it has been going on intermittently since she was 39.
Migraine headache, chronic -may have component of medication overuse headache as she takes analgesics on a daily basis. We discussed the importance of discontinuing daily use of analgesics as they can cause headaches themselves.
Pyuria -clinically doubt UTI. Emergency department administered a dose of fosfomycin last night. Urine culture shows mixed isabela, likely contamination. She has had urinary symptoms for more than a month and I recommend outpatient urogynecology
follow-up with Dr. Escobar. Suspect noninfectious dysuria. Discussed with patient.
Hypothyroidism -resume levothyroxine.
Essential hypertension -stable. Resume home meds.
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
Mild intermittent asthma -stable.
Obesity due to excess calories
Full code
Dispo -medically stable for discharge to SNF. Case management aware.
Anticipated Discharge: Today
Subjective/Interval History
-
Date of Service: July 28, 2023
Patient seen and examined. Vertigo much improved. No complaints.
Objective Data
-
Vital Signs:
Vital Signs
Temp Pulse Resp BP Pulse Ox
98.0 F 69 18 137/72 95
07/28/23 07:00 07/28/23 08:07 07/28/23 07:00 07/28/23 08:07 07/28/23 07:00
I&O
07/27/23 07/28/23 07/29/23
06:59 06:59 06:59
Intake Total 1440 / 1440 960 / 960
Output Total 950 / 950 200 / 200
Balance 490 / 490 760 / 760
Review of Systems
-
History Source: Patient
All other systems: Reviewed and negative
[2023-07-28 15:00] VITALS: BP 167/79
[2023-07-28] MEDS: TYLENOL 650 MG PO ×2 (15:48→22:00)
--- NOTE | 2023-07-28 16:24 | CM ---
met with patient at bedside.cont pt/vestibular rehab.spoke with wellness at [facility].patient resides in [place]since pt has recommended snf rehab they will not take patient back to their facility until she has had rehab.referral sent to [facility]spoke with noemi and she has been accepted pending bed availability.i have also spoken with attending and told him patiet needs 3 overights before she can be dc.
plan:hopefully dc to [facility] tomorrow if bed available.
[2023-07-28] MEDS: LOVENOX 40 MG SC (17:46)
[2023-07-28 20:00] VITALS: BP 131/82; BP 142/77; BP 148/74; PULSE 81; PULSE 85; PULSE 96
[2023-07-28 23:50] VITALS: BP 133/79
[2023-07-29] MEDS: SYNTHROID 112 MCG PO (06:40)
[2023-07-29] MEDS: SYMBICORT 80/4.5 MCG INHALER INH (07:26)
[2023-07-29 07:45] VITALS: BP 147/84
[2023-07-29] MEDS: PROZAC 60 MG PO (09:14)
[2023-07-29] MEDS: ORETIC 12.5 MG PO ×2 (09:15→20:56)
[2023-07-29] MEDS: ZESTRIL 10 MG PO ×2 (09:15→20:56)
[2023-07-29] MEDS: SINGULAIR 10 MG PO (09:16)
[2023-07-29] MEDS: PROTONIX 40 MG PO (09:16)
[2023-07-29 10:56] VITALS: BP 130/69; BP 146/75; BP 149/79; PULSE 74; PULSE 83; PULSE 88
--- NOTE | 2023-07-29 13:56 | CM ---
CM following for d/c planning
Pt for SNF - accepted to [facility]
Needs auth from Basil Araiza at [facility]
Auth started in [employer]
Certification Number
[id number]
Clinicals faxed to [phone]
Plan - transfer to [facility] when auth obtained
--- NOTE | 2023-07-29 14:35 | W.PN.HOSP.TC ---
Today's Communication/Plan
-
Continue current care
Assessment / Plan
Assessment / Plan
Gen-AAOx3, NAD
HEENT-NC, AT, anicteric, clear oral mm
Neck-supple
CV-reg, no M, +S1/S2
Lungs-clear B/L
Abd-soft, NT, ND
Ext-no edema
Musculoskeletal-no cyanosis, clubbing
Skin-warm and dry
Neuro-grossly non-focal, no nystagmus
Psych-calm, cooperative
Positional vertigo -suspect peripheral vertigo. Continue PT, vestibular therapy. Brain MRI negative for stroke. Her vertigo is chronic, she states it has been going on intermittently since she was 39.
Migraine headache, chronic -may have component of medication overuse headache as she takes analgesics on a daily basis. We discussed the importance of discontinuing daily use of analgesics as they can cause headaches themselves.
Pyuria -clinically doubt UTI. Emergency department administered a dose of fosfomycin last night. Urine culture shows mixed isabela and ESBL, likely contamination. She has had urinary symptoms for more than a month and I recommend outpatient
urogynecology follow-up with Dr. Escobar. Suspect noninfectious dysuria. Discussed with patient.
Hypothyroidism -continue levothyroxine.
Essential hypertension -stable. Resume home meds.
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
Mild intermittent asthma -stable.
Obesity due to excess calories
Full code
Dispo -medically stable for discharge to SNF. Case management aware. Will be going to [address] [facility] tomorrow.
Anticipated Discharge: Within 24 hours
Subjective/Interval History
-
Date of Service: July 29, 2023
Patient seen and examined. No new complaints.
Objective Data
-
Vital Signs:
Vital Signs
Temp Pulse Resp BP Pulse Ox
97.8 F 72 17 147/84 96
07/29/23 07:45 07/29/23 09:15 07/29/23 07:45 07/29/23 09:15 07/29/23 09:30
I&O
07/28/23 07/29/23 07/30/23
06:59 06:59 06:59
Intake Total 960 / 960 1200 / 1200
Output Total 200 / 200
Balance 760 / 760 1200 / 1200
Review of Systems
-
History Source: Patient
All other systems: Reviewed and negative
[2023-07-29 15:17] VITALS: O2SAT 99
[2023-07-29] MEDS: TYLENOL 650 MG PO ×2 (15:24→22:06)
[2023-07-29 15:35] VITALS: BP 142/79
[2023-07-29] MEDS: LOVENOX 40 MG SC (17:45)
[2023-07-29 19:30] VITALS: BP 120/70; BP 134/73; BP 152/77; PULSE 82; PULSE 89; PULSE 93
[2023-07-29 23:37] VITALS: BP 134/70
[2023-07-30] MEDS: SYNTHROID 112 MCG PO (06:29)
[2023-07-30 07:30] VITALS: BP 143/77
[2023-07-30] MEDS: PROTONIX 40 MG PO (08:14)
[2023-07-30] MEDS: SINGULAIR 10 MG PO (08:14)
[2023-07-30] MEDS: ORETIC 12.5 MG PO (08:14)
[2023-07-30] MEDS: PROZAC 60 MG PO (08:14)
[2023-07-30] MEDS: ZESTRIL 10 MG PO (08:15)
--- NOTE | 2023-07-30 09:49 | CM ---
Addendum entered by Radha Xie 07/30/23 13:57:
Daughter aware pt for d/c and will transport pt to [facility] at [facility] aware pt nilda be d/c'd at approx 2:30PM - daughter to transport
Addendum entered by Radha Xie 07/30/23 11:02:
Spoke with [facility] at [facility] - has auth
Per pt daughter will transport - will confirm
Discussed IMM
Plan - transfer to [facility]
Report -[phone]
Fax - [phone]
Original Note:
Called [employer] to check status of auth
Spoke with representative [employer]
Approved 07/29-08/10, next review 08/11
Certification Number - [id number]
Called and left message for [facility] - auth approved. Waiting inspection engineer back from [facility]
Plan - d/c to [facility] When medically stable
--- NOTE | 2023-07-30 10:07 | W.DS.TRANS ---
DC Summary - [employer]
-
Discharge Instructions:
Discharge Diagnosis/Procedures Positional vertigo, ambulatory dysfunction
Diet Regular
Activity As tolerated,With assistance
Driving Restrictions No driving
Bathing Restrictions None
Instructions:
Stand-Alone Forms:
Changes to Home Medications: No
Discharge Medications:
DC Medications w/original date entered in [employer]
acetaminophen 500 mg tablet 500 mg PO DAILY@1999 Pain 07/26/23
albuterol sulfate 90 mcg/actuation aerosol inhaler 2 puff inhalation R DAILYPRN PRN sob 07/26/23
fluoxetine 60 mg tablet 60 mg PO DAILY mental health 07/26/23
fluticasone furoate 100 mcg-vilanterol 25 mcg/dose inhalation powder 1 inh inhalation R DAILY Lung/Breathing Issues 07/26/23
levothyroxine 112 mcg tablet 112 mcg PO DAILY@0600 Thyroid 07/26/23
lisinopril 10 mg-hydrochlorothiazide 12.5 mg tablet 1 tab PO BID@0800,1999 Blood Pressure 07/26/23
magnesium glycinate 100 mg PO DAILY Supplement 07/26/23
meclizine 12.5 mg tablet 12.5 mg PO BIDPRN PRN dizziness 07/26/23
montelukast 10 mg tablet 10 mg PO DAILY Allergies 07/26/23
omeprazole 40 mg capsule,delayed release 40 mg PO DAILY@0600 Gastrointestinal Issue 07/26/23
Home Medication Changes
Pending Results: No
--- NOTE | 2023-07-30 10:31 | W.PN.HOSP.TC ---
Today's Communication/Plan
-
Discharge
Assessment / Plan
Assessment / Plan
Gen-AAOx3, NAD
HEENT-NC, AT, anicteric, clear oral mm
Neck-supple
CV-reg, no M, +S1/S2
Lungs-clear B/L
Abd-soft, NT, ND
Ext-no edema
Musculoskeletal-no cyanosis, clubbing
Skin-warm and dry
Neuro-grossly non-focal, no nystagmus
Psych-calm, cooperative
Positional vertigo -suspect peripheral vertigo. Continue PT, vestibular therapy. Brain MRI negative for stroke. Her vertigo is chronic, she states it has been going on intermittently since she was 39.
Migraine headache, chronic -may have component of medication overuse headache as she takes analgesics on a daily basis. We discussed the importance of discontinuing daily use of analgesics as they can cause headaches themselves.
Pyuria -clinically doubt UTI. Emergency department administered a dose of fosfomycin last night. Urine culture shows mixed isabela and ESBL, likely contamination. She has had urinary symptoms for more than a month and I recommend outpatient
urogynecology follow-up with Dr. Escobar. Suspect noninfectious dysuria. Discussed with patient.
Hypothyroidism -continue levothyroxine.
Essential hypertension -stable. Resume home meds.
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
Mild intermittent asthma -stable.
Obesity due to excess calories
Full code
Dispo -medically stable for discharge to SNF. Case management aware. Will be going to [facility] today.
32 minutes spent in discharge process.
Anticipated Discharge: Today
Subjective/Interval History
-
Date of Service: July 30, 2023
Patient seen and examined. No complaints.
Objective Data
-
Vital Signs:
Vital Signs
Temp Pulse Resp BP Pulse Ox
98.4 F 78 16 143/77 94
07/30/23 07:30 07/30/23 07:30 07/30/23 07:30 07/30/23 07:30 07/30/23 07:30
I&O
07/29/23 07/30/23 07/31/23
06:59 06:59 06:59
Intake Total 1200 / 1200 1080 / 1080
Balance 1200 / 1200 1080 / 1080
Review of Systems
-
History Source: Patient
All other systems: Reviewed and negative
== END 2023-07-30 14:33 | DRG 149 ==
LOC: 3 WEST ACU 06:37
PROVIDERS: Emergency Medicine; ADMITTING PHYSICIAN Internal Medicine; ATTENDING PHYSICIAN Hospitalist; EMERGENCY PHYSICIAN Student in an Organized Health Care Education/Training Program; OTHER PHYSICIAN Psychiatry & Neurology Neurology
DX: H81.399 Other peripheral vertigo, unspecified ear (principal); Z16.24 Resistance to multiple antibiotics; G43.909 Migraine, unspecified, not intractable, without status migrainosus; R82.81 Pyuria; I10 Essential (primary) hypertension; B96.20 Unspecified Escherichia coli [E. coli] as the cause of diseases classified elsewhere; E03.9 Hypothyroidism, unspecified; J45.20 Mild intermittent asthma, uncomplicated; E66.09 Other obesity due to excess calories; H91.8X1 Other specified hearing loss, right ear; Z87.440 Personal history of urinary (tract) infections; Z86.61 Personal history of infections of the central nervous system; Z68.36 Body mass index [BMI] 36.0-36.9, adult
CPT/HCPCS: 70450; 70551; 80048; 80053; 80061; 81003; 81015; 82607; 82728; 82746; 83036; 84443; 85025; 85027; 87070; 87077; 87086; 87186; 93005; 94640; 96361; 96374; 97112; 97116; 97163; 97166; 97530; 97535; 99285; J1240

== ENCOUNTER → 2023-08-10 10:16 | Outpatient (REF) | payer OTHER, SELFPAY ==
[2023-08-10 10:48] LABS: % Basophils 0.7 % (0-2); % Immature Granulocytes 0.4 % (0-0.5); % Lymphocytes 31.9 % (20.5-51.1); % Monocytes 7.4 % (1.7-9.3); % Neutrophils 55.6 % (42.2-75.2); Absolute Basophils 0.1 10^3/uL (0-0.2); Absolute Eosinophils 0.3 10^3/uL (0-0.7); Absolute Lymphocytes 2.3 10^3/uL (1.2-3.4); Absolute Monocytes 0.5 10^3/uL (0.1-0.6); Hematocrit 36.7 % (37.0-47.0); Hemoglobin 12.3 g/dL (12.0-16.0); Mean Corp Hgb Conc. 33.5 g/dL (33.0-37.0); Mean Corpuscular Hgb 30.4 pg (27.0-31.0); Mean Corpuscular Volume 90.8 fL (81.0-99.0); Mean Platelet Volume 10.4 fL (7.4-10.4); Nucleated Red Blood Cells % 0 %; Platelet Count 274 10^3/uL (130-400); Red Blood Cell Count 4.04 10^6/uL (4.20-5.40); Red Cell Dist. Width 13.7 % (11.5-14.5); White Blood Cell Count 7.3 10^3/uL (4.8-10.8)
[2023-08-10 10:51] LABS: Urine Albumin Trace (Neg - Trace); Urine Bilirubin Negative (Negative); Urine Character Slightly Cloudy (Clear); Urine Color Straw; Urine Glucose Negative (Negative); Urine Ketone Trace (Negative); Urine Leukocyte Trace (Negative); Urine Nitrite Positive (Negative); Urine Occult Blood 1+ (Negative); Urine Specific Gravity 1.015 (<1.030); Urine Urobilinogen Negative (Neg - 1+)
[2023-08-10 11:08] LABS: Urine Bacteria Moderate (Negative); Urine Squamous Cell 16-20 /LPF (Few); Urine White Cell 30-40 /HPF (0-5)
[2023-08-10 11:22] LABS: ALT (SGPT) 16 U/L (0-35); AST (SGOT) 19 U/L (14-36); Albumin 3.8 g/dl (3.5-5.0); Alkaline Phosphatase 64 U/L (38-126); Blood Urea Nitrogen 38 mg/dl (7-17); Calcium 9.6 mg/dl (8.4-10.2); Carbon Dioxide 26 mmol/L (22-30); Chloride 101 mmol/L (98-107); Glucose 94 mg/dl (70-99); Potassium 4.2 mmol/L (3.5-5.1); Sodium 136 mmol/L (135-145); Total Bilirubin 0.5 mg/dl (0.2-1.3); Total Protein 6.5 g/dl (6.3-8.2)
== END ==
LOC: OLABP 10:16
PROVIDERS: ATTENDING PHYSICIAN Family Medicine
DX: R26.2 Difficulty in walking, not elsewhere classified (principal); I10 Essential (primary) hypertension; E03.9 Hypothyroidism, unspecified
CPT/HCPCS: 36415; 80053; 81003; 81015; 85025; 87086

== ENCOUNTER → 2023-08-12 11:32 | Outpatient (REF) | payer MEDICARE, SELFPAY ==
[2023-08-12 12:42] LABS: Blood Urea Nitrogen 36 mg/dl (7-17); Calcium 8.9 mg/dl (8.4-10.2); Carbon Dioxide 25 mmol/L (22-30); Chloride 104 mmol/L (98-107); Glucose 85 mg/dl (70-99); Potassium 4.4 mmol/L (3.5-5.1); Sodium 136 mmol/L (135-145); eGFR 49.55
== END ==
LOC: OLABP 11:32
PROVIDERS: ATTENDING PHYSICIAN Family Medicine
DX: I10 Essential (primary) hypertension (principal); R82.81 Pyuria; M62.59 Muscle wasting and atrophy, not elsewhere classified, multiple sites; H81.399 Other peripheral vertigo, unspecified ear
CPT/HCPCS: 36415; 80048

== ENCOUNTER 2023-09-09 13:11 | Inpatient (IN) | payer OTHER, SELFPAY ==
[2023-09-09] VITALS (7 sets, daily range): BP systolic 134–155; BP diastolic 65–93; BMI 36.8
[2023-09-09 07:45] LABS: % Basophils 0.4 % (0-2); % Eosinophils 2.7 % (0-6); % Immature Granulocytes 0.4 % (0-0.5); % Lymphocytes 18.9 % (20.5-51.1); % Monocytes 7.3 % (1.7-9.3); % Neutrophils 70.3 % (42.2-75.2); Absolute Eosinophils 0.2 10^3/uL (0-0.7); Absolute Lymphocytes 1.6 10^3/uL (1.2-3.4); Absolute Monocytes 0.6 10^3/uL (0.1-0.6); Absolute Neutrophils 5.8 10^3/uL (1.4-6.5); Hematocrit 36.6 % (37.0-47.0); Hemoglobin 12.3 g/dL (12.0-16.0); Mean Corp Hgb Conc. 33.6 g/dL (33.0-37.0); Mean Corpuscular Hgb 30.2 pg (27.0-31.0); Mean Corpuscular Volume 89.9 fL (81.0-99.0); Mean Platelet Volume 9.8 fL (7.4-10.4); Nucleated Red Blood Cells % 0 %; Platelet Count 269 10^3/uL (130-400); Red Blood Cell Count 4.07 10^6/uL (4.20-5.40); Red Cell Dist. Width 13.7 % (11.5-14.5); White Blood Cell Count 8.2 10^3/uL (4.8-10.8)
--- NOTE | 2023-09-09 07:53 | ED.GENMED ---
History of Present Illness
General
Chief Complaint: Breathing Problem
Source: patient
Exam Limitations: none
Time Seen by Provider: 09/09/23 07:23
Nursing documentation reviewed up to this point in time: agreed with
Travel History
Have you had any contact with someone who has COVID-19?: No
Do you have any symptoms of coronavirus? Fever > 100 degrees, chills, cough, shortness of breath, sore throat, loss of taste or smell, muscle aches, or headache?: No
History of Present Illness
History of Present Illness:
83-year-old female history of asthma, woke up today with cough and wheeze requested her Breo inhaler apparently her pulse ox was marginal she was referred to the ER no chest pain, no hemoptysis, no leg edema tells me she has no history of heart
failure, uses nebulizers at times, been on Macrobid for a UTI
Past History
Past History
ED Past Medical History: Asthma and Other (Chronic daily headache, meningitis age 27)
Social History
Tobacco: Non-smoker
Alcohol: None
Drug: None
Living: assisted living
Employment: Retired
Family History
Family History: Other (Reviewed and noncontributory)
Review of Systems
Review of Systems
All Other Systems: Not applicable
Constitutional: Denies fever or fatigue
Respiratory: Reports cough and trouble breathing
Cardiac: Reports no symptoms
ABD/GI: Reports no symptoms
: Reports no symptoms
Musculoskeletal: Reports no symptoms
Skin: Reports no symptoms
Neurological: Reports no symptoms
Phy Exam
Physical Exam
Physical Exam:
Physical Exam
General: no apparent distress, not acutely ill
Neck: No JVD
Heart: s1/s2 regular rate and rhythm, no murmur. equal radial pulses.
Lungs: Faint expiratory wheeze bilaterally
Abdomen: Nontender
Neuro: alert and oriented. no focal neurological deficits
Skin: no rash
Psychiatric: well kept. interactive and cooperative
Extremities: Trace edema no calf pain
Scores
Heart Failure Risk
Heart Failure Risk Score: Not Applicable
Course
Orders/Labs/Results
Orders:
Orders
09/09/23 07:29
Electrocardiogram (*1) Urgent
Reason for Study: Shortness of Breath
09/09/23 07:30
EKG- Treatment ONCE
09/09/23 07:31
CMP [Comprehensive Metabolic Panel] Urgent
Complete Blood Count/With Diff Urgent
09/09/23 07:50
Dexamethasone Sod Phosphate [Decadron] 6 mg IV NOW STA
Ipratropium/Albuterol Sulfate [Duoneb] 3 ml INH R NOW STA
09/09/23 07:51
CR Chest - 2 Views Urgent
Comment:
Reason For Exam: sob cough
Abnormal Lab Results
09/09/23
07:31
RBC 4.07 L 10^6/uL
(4.20-5.40)
Hct 36.6 L %
(37.0-47.0)
Lymphocytes % 18.9 L %
(20.5-51.1)
Chloride 109 H mmol/L
(98-107)
BUN 22 H mg/dl
(7-17)
Creatinine 1.1 H mg/dL
(0.6-1.0)
Glucose 105 H mg/dl
(70-99)
09/09/23 07:31
09/09/23 07:31
Vital Signs
Initial and Last Documented VS:
Initial Vital Signs
Temp Pulse Resp Pulse Ox
98.0 F 66 18 92
09/09/23 07:20 09/09/23 07:20 09/09/23 07:20 09/09/23 07:20
Last Documented Vital Signs
Temp Pulse Resp Pulse Ox
98.0 F 66 18 93
09/09/23 07:20 09/09/23 07:20 09/09/23 07:20 09/09/23 09:11
MDM/Problems Addressed
Differential Diagnosis Includes:
Asthma bronchitis pneumonia heart failure doubt PE
MDM/Problems Addressed:
Shortness of breath
Chronic conditions affecting care:
Asthma
Acute Exacerbation and/or Progression of Chronic Illness:
Has been on antibiotics Macrobid rare instances of pulmonary infiltrates
*Radiology
Radiology exam reviewed: preliminary read by ED provider
*Pulse Oximetry
Patient hypoxic: no
Comment: 92-94
*EKG
Interpreted by ED Provider?: Yes
Interpretation: abnormal
Comparison EKG: no comparison EKG present
Heart Rate: 78
Rate: normal
Rhythm: sinus
Ischemia: non-specific ST changes
*Chemist Intern Interpretation
Rate: normal
Interpretation: normal
Heart Rate: 78
Rhythm: sinus
*Critical Care Note
Total Time (30-74mins, 75-104mins- exclusive of procedures): Not Applicable
Update Note
Update Note:
9:30 AM update patient states she is feeling better chest x-ray noted formal report pending
ED Attending Note
-
Portions of this chart may have been created with voice recognition software.� Occasional wrong word or��sound alike� substitutions may have occurred due to the inherent limitations of voice recognition software.
Discharge Plan
Departure
Patient Disposition: Home (Routine Discharge)
Date of Disposition: 09/09/23
Time of Disposition: 09:34
Patient with high blood pressure during this ER visit?: No
Condition: Good
Covid-19: Not Applicable
Discharge Problem:
Acute bronchitis
Instructions: Acute Bronchitis, Adult (DC)
Prescriptions:
New
methylprednisolone [Medrol (Cristo)] 4 mg tablets,dose pack
See Rx Instructions .ROUTE .COMPLEX Qty: 21 0RF
Rx Instructions:
for 6 days
albuterol sulfate [ProAir HFA] 90 mcg/actuation HFA aerosol inhaler
2 puff inhalation Q4HPRN PRN (Reason: shortness of breath) Qty: 8.5 6RF
No Action
meclizine 12.5 mg Tablet
12.5 mg PO DAILY
omeprazole 40 mg Capsule,Delayed Release(Dr/Ec)
40 mg PO DAILY@0600
acetaminophen 500 mg Tablet
500 mg PO DAILY@1999
montelukast 10 mg Tablet
10 mg PO DAILY
albuterol sulfate 90 mcg/actuation Hfa Aerosol Inhaler
2 puff INHALATION R DAILYPRN PRN (Reason: sob)
levothyroxine 112 mcg Tablet
112 mcg PO DAILY@0600
magnesium glycinate 100 mg magnesium Capsule
100 mg PO DAILY
acetaminophen [Tylenol] 325 mg Tablet
650 mg PO Q4H MDD 3000 mg PRN (Reason: mild pain/fever)
meclizine 12.5 mg Tablet
12.5 mg PO Q8HPRN PRN (Reason: dizziness)
lisinopril 10 mg Tablet
10 mg PO BID
propranolol 20 mg Tablet
20 mg PO BID@0800,1700
Patient Comments:
09/09/2023, hold if SBP<100 or HR<60.
fluoxetine 20 mg Capsule
60 mg PO DAILY
fluticasone furoate-vilanterol [Breo Ellipta] 100-25 mcg/dose Blister With Device
1 inh INHALATION R DAILY
Referrals:
Stacey Early CRNP [Family Provider] - Next open appointment
Interventions
Interventions:
*Risk Screen - Suicide Last Done: 09/09/23 07:22
*General Assessment Last Done: 09/09/23 07:22
*Neglect/Abuse Screening Last Done: 09/09/23 07:22
ED- Fall Risk Assessment Last Done: 09/09/23 07:22
ED- Cardiac Assessment Last Done: 09/09/23 09:11
ED- Pulmonary Assessment Last Done: 09/09/23 09:11
Discharge Date and Time
Print Language: AMHARIC
[2023-09-09 07:55] LABS: ALT (SGPT) 11 U/L (0-35); AST (SGOT) 17 U/L (14-36); Albumin 3.8 g/dl (3.5-5.0); Alkaline Phosphatase 65 U/L (38-126); Blood Urea Nitrogen 22 mg/dl (7-17); Calcium 9.5 mg/dl (8.4-10.2); Carbon Dioxide 25 mmol/L (22-30); Chloride 109 mmol/L (98-107); Estimated Creatinine Clearance 48 ml/min; Glucose 105 mg/dl (70-99); Potassium 4.1 mmol/L (3.5-5.1); Sodium 142 mmol/L (135-145); Total Bilirubin 0.4 mg/dl (0.2-1.3); Total Protein 6.5 g/dl (6.3-8.2); eGFR 49.55
[2023-09-09] MEDS: DECADRON 6 MG IV (08:08)
[2023-09-09] MEDS: DUONEB 3 ML INH (08:08)
--- NOTE | 2023-09-09 10:16 | ED.GENMED ---
History of Present Illness
General
Chief Complaint: Breathing Problem
Time Seen by Provider: 09/09/23 07:23
Travel History
Have you had any contact with someone who has COVID-19?: No
Do you have any symptoms of coronavirus? Fever > 100 degrees, chills, cough, shortness of breath, sore throat, loss of taste or smell, muscle aches, or headache?: No
Past History
Past History
ED Past Medical History: Asthma and Other (Chronic daily headache, meningitis age 27)
Social History
Tobacco: Non-smoker
Alcohol: None
Drug: None
Living: assisted living
Employment: Retired
Family History
Family History: Other (Reviewed and noncontributory)
Course
Orders/Labs/Results
Orders:
Orders
09/09/23 07:29
Electrocardiogram (*1) Urgent
Reason for Study: Shortness of Breath
09/09/23 07:30
EKG- Treatment ONCE
09/09/23 07:31
CMP [Comprehensive Metabolic Panel] Urgent
Complete Blood Count/With Diff Urgent
NT-proBNP Urgent
Comment: ADD ON
09/09/23 07:50
Dexamethasone Sod Phosphate [Decadron] 6 mg IV NOW STA
Ipratropium/Albuterol Sulfate [Duoneb] 3 ml INH R NOW STA
09/09/23 07:51
CR Chest - 2 Views Urgent
Comment:
Reason For Exam: sob cough
09/09/23 10:15
Add On- LAB Urgent
Tests Added?: pBNP
Albuterol Nebs [Ventolin Nebules] 2.5 mg INH R NOW STA
Abnormal Lab Results
09/09/23
07:31
RBC 4.07 L 10^6/uL
(4.20-5.40)
Hct 36.6 L %
(37.0-47.0)
Lymphocytes % 18.9 L %
(20.5-51.1)
Chloride 109 H mmol/L
(98-107)
BUN 22 H mg/dl
(7-17)
Creatinine 1.1 H mg/dL
(0.6-1.0)
Glucose 105 H mg/dl
(70-99)
09/09/23 07:31
09/09/23 07:31
Vital Signs
Initial and Last Documented VS:
Initial Vital Signs
Temp Pulse Resp Pulse Ox
98.0 F 66 18 92
09/09/23 07:20 09/09/23 07:20 09/09/23 07:20 09/09/23 07:20
Last Documented Vital Signs
Temp Pulse Resp BP Pulse Ox
98.0 F 62 19 155/81 92
09/09/23 07:20 09/09/23 08:15 09/09/23 08:15 09/09/23 07:22 09/09/23 10:10
ED Attending Note
-
Portions of this chart may have been created with voice recognition software.� Occasional wrong word or��sound alike� substitutions may have occurred due to the inherent limitations of voice recognition software.
Discharge Plan
Departure
Patient Disposition: Admit
Date of Disposition: 09/09/23
Time of Disposition: 09:34
Admit to: Med/Surg
Presentation/result/management discussed w/ accepting MD/DO: Hospitalist
Patient with high blood pressure during this ER visit?: No
Condition: Good
Covid-19: Not Applicable
Discharge Problem:
Acute bronchitis
Instructions: Acute Bronchitis, Adult (DC)
Prescriptions:
New
methylprednisolone [Medrol (Cristo)] 4 mg tablets,dose pack
See Rx Instructions .ROUTE .COMPLEX Qty: 21 0RF
Rx Instructions:
for 6 days
albuterol sulfate [ProAir HFA] 90 mcg/actuation HFA aerosol inhaler
2 puff inhalation Q4HPRN PRN (Reason: shortness of breath) Qty: 8.5 6RF
No Action
meclizine 12.5 mg Tablet
12.5 mg PO DAILY
omeprazole 40 mg Capsule,Delayed Release(Dr/Ec)
40 mg PO DAILY@0600
acetaminophen 500 mg Tablet
500 mg PO DAILY@1999
montelukast 10 mg Tablet
10 mg PO DAILY
albuterol sulfate 90 mcg/actuation Hfa Aerosol Inhaler
2 puff INHALATION R DAILYPRN PRN (Reason: shortness of breath)
levothyroxine 112 mcg Tablet
112 mcg PO DAILY@0600
magnesium glycinate 100 mg magnesium Capsule
100 mg PO DAILY
acetaminophen [Tylenol] 325 mg Tablet
650 mg PO Q4H MDD 3000 mg PRN (Reason: mild pain/fever)
meclizine 12.5 mg Tablet
12.5 mg PO Q8HPRN PRN (Reason: dizziness)
lisinopril 10 mg Tablet
10 mg PO BID
propranolol 20 mg Tablet
20 mg PO BID@0800,1700
Patient Comments:
09/09/2023, hold if SBP<100 or HR<60.
fluoxetine 20 mg Capsule
60 mg PO DAILY
fluticasone furoate-vilanterol [Breo Ellipta] 100-25 mcg/dose Blister With Device
1 inh INHALATION R DAILY
Referrals:
Stacey Early CRNP [Family Provider] - Next open appointment
Interventions
Interventions:
*Risk Screen - Suicide Last Done: 09/09/23 07:22
*General Assessment Last Done: 09/09/23 07:22
*Neglect/Abuse Screening Last Done: 09/09/23 07:22
ED- Fall Risk Assessment Last Done: 09/09/23 07:22
ED- Cardiac Assessment Last Done: 09/09/23 09:11
ED- Pulmonary Assessment Last Done: 09/09/23 09:11
Discharge Date and Time
Print Language: TURKISH
--- NOTE | 2023-09-09 10:38 | HPS.HSE ---
Addendum entered and electronically signed by Tiffany Turner MD 09/09/23 17:37:
Patient developed Afib RVR following admission to floor
Asymptomatic no acute distress.
HR consistently 120s improved with IV lopressor 5 mg
Cardio eval requested
Original Note:
Family Physician
-
Family Physician: Stacey Early
Chief Complaint
-
Exertional Dyspnea
History of Present Illness
83 female history obesity chronic peripheral vertigo migraine hypothyroidism hypertension GERD depression hx ESBL E. coli in urine asthma recently evaluated at this facility earlier last month for vertigo and discharged to SNF rehab, brought in by
daughter due to concerns progressive exertional dyspnea shortness of breath urinary frequency poor oral intake for the past few days. Daughter reports that patient was recently discharged from assisted facility rehab a week ago. Developed
acute shortness of breath this morning not relieved with home inhalers. Treated in ED with nebulizer treatment and steroids with subsequent improvement in symptoms. Vital signs stable on room air afebrile nonlabored respiration but significant
impairment exercise tolerance exertional dyspnea with few steps. No leukocytosis mild creatinine elevation 1.1 possible CKD 3 baseline, BNP elevated 1000. Chest x-ray notes mild cardiomegaly and small bilateral pleural effusions. Patient and
daughter deny recent weight gain, no leg edema or crackles on auscultation.
Medical History
Past Medical History
Past Medical History: Reports Other (As above)
Past Surgical History: Reports Other (As above)
Social History
Tobacco: Non-smoker
Alcohol: None
Drug: None
Living: With Family
Family History
Family History: Not pertinent (reviewed)
Allergies / Home Medications
Allergies reflects when Allergies were last updated in [facility].
Home Medications with original date entered in [facility]
Allergy/Medication List:
Allergies
Allergy/AdvReac Type Severity Reaction Status Date / Time
No Known Allergies Allergy Unverified 07/25/23 19:33
Home Medications
acetaminophen 500 mg tablet 500 mg PO DAILY@2000 Pain 07/26/23
albuterol sulfate 90 mcg/actuation aerosol inhaler 2 puff inhalation R DAILYPRN PRN shortness of breath 07/26/23
levothyroxine 112 mcg tablet 112 mcg PO DAILY@0600 Thyroid 07/26/23
magnesium glycinate 100 mg PO DAILY Supplement 07/26/23
meclizine 12.5 mg tablet 12.5 mg PO DAILY vertigo 07/26/23
montelukast 10 mg tablet 10 mg PO DAILY Allergies 07/26/23
omeprazole 40 mg capsule,delayed release 40 mg PO DAILY@0600 Gastrointestinal Issue 07/26/23
acetaminophen 325 mg tablet (Tylenol) 650 mg PO Q4H PRN mild pain/fever 09/09/23
albuterol sulfate 90 mcg/actuation aerosol inhaler (ProAir HFA) 2 puff inhalation Q4HPRN PRN shortness of breath #8.5 grams 09/09/23
fluoxetine 20 mg capsule 60 mg PO DAILY Mental Health 09/09/23
fluticasone furoate 100 mcg-vilanterol 25 mcg/dose inhalation powder (Breo Ellipta) 1 inh inhalation R DAILY Lung/Breathing Issues 09/09/23
lisinopril 10 mg tablet 10 mg PO BID Blood Pressure 09/09/23
meclizine 12.5 mg tablet 12.5 mg PO Q8HPRN PRN dizziness 09/09/23
methylprednisolone 4 mg tablets in a dose pack (Medrol (Cristo)) See Rx Instructions PO .COMPLEX #21 ea 09/09/23
propranolol 20 mg tablet 20 mg PO BID@0800,1700 Blood Pressure 09/09/23
Review of Systems
-
A 12 point ROS was completed and negative except as noted: Yes
Constitutional: Reports Other (as below)
Physical Exam
Vital Signs
Vital Signs
Temp Pulse Resp BP Pulse Ox
98.0 F 62 19 155/81 92
09/09/23 07:20 09/09/23 08:15 09/09/23 08:15 09/09/23 07:22 09/09/23 10:10
Physical Exam
General: Other (as below)
Laboratory Results
-
09/09/23 07:31
09/09/23 07:31
Laboratory Results
Total Bilirubin 0.4 mg/dl (0.2-1.3) 09/09/23 07:31
AST 17 U/L (14-36) 09/09/23 07:31
ALT 11 U/L (0-35) 09/09/23 07:31
Alkaline Phosphatase 65 U/L (38-126) 09/09/23 07:31
Impression/Plan
-
ROS
General: Denies fever chills night sweats unexpected weight loss
Neuro: Denies seizure shaking loss of consciousness dizziness vertigo
Psych: denies depression hallucinations confusion manic episodes
Endocrine: Denies polyuria polydipsia polyphagia heat/cold intolerance
HEENT: Denies blindness visual disturbances epistaxis
Pulmonary: Exertional dyspnea
Cardiovascular: denies chest pain palpitations leg swelling
Hematology: denies signs symptoms of anemia easy bruising/bleeding
Gastrointestinal: denies nausea vomiting diarrhea constipation hematemesis hematochezia melena
Genito-Urinary: Urinary Frequency denies dysuria
Musculoskeletal: denies joint pain weakness
Dermatology: denies rash laceration bruising
Physical Exam
General: No pallor, cyanosis, or jaundice. Obese
HEENT: Throat clear. PERRLA Normocephalic atraumatic
NECK: Supple. No JVD Carotid Bruits
RESPIRATORY: Lungs clear to auscultation. No crackles wheezes stridor
CVS: S1, S2 normal. RRR. No murmur, rub or gallop.
ABDOMEN: Soft, non-tender. No distension. BS+/normal.
EXTREMITIES: No peripheral cyanosis or edema.
COLLATERAL SPECIALIST: AOx3. No focal deficits.
IMPRESSION:
83F obesity chronic peripheral vertigo migraine hypothyroidism hypertension Essential tremors GERD depression hx ESBL E. coli in urine asthma recently evaluated at this facility earlier last month for vertigo and discharged to SNF rehab, brought in
by daughter due to concerns progressive exertional dyspnea shortness of breath urinary frequency poor oral intake for the past few days. Daughter reports that patient was recently discharged from assisted facility rehab a week ago.
Developed acute shortness of breath this morning not relieved with home inhalers. Treated in ED with nebulizer treatment and steroids with subsequent improvement in symptoms. Vital signs stable on room air afebrile nonlabored respiration but
significant impairment exercise tolerance exertional dyspnea with few steps. No leukocytosis mild creatinine elevation 1.1 possible CKD 3 baseline, BNP elevated 1000. Chest x-ray notes mild cardiomegaly and small bilateral pleural effusions.
Patient and daughter deny recent weight gain, no leg edema or crackles on auscultation.
PLAN:
#Asthma Exacerbation
#Exertional Dyspnea Debilitating
#Acute worsening shortness of breath, S1Q3T3 noted on EKG
received nebulizers and steroid in ED
non-labored respiration stable on room air at rest, no wheezing crackles noted on auscultation
significant impairment exercise tolerance with few steps associate shortness of breath tachypnea
Duoneb R QID
iptratropium prn sob wheezing
cont home Breo Ellipta montelukast
hold off on further steroids for now
check CT for possible new onset PE
PT/OT eval
fall precautions
#Suspected UTI
#Hx ESBL E.coli in urine
#patient reportedly on Macrobid for UTI
#Mild Cr elevation 1.1 appears baseline suspect CKD III
Reports urinary frequency but denies dysuria
Afebrile no leukocytosis
most recent urine cx noted mix isabela no significant growth
repeating urinalysis
ID eval requested
Daughter reports poor oral intake, patient afraid to drink d/t concerns urinary frequency with associate exercise intolerance.
gentle IVF hydration started
monitor renal function
#Possible Heart Failure
BNP 1000 with associate renal insufficiency
daily weight I/O
patient doesn't appear to be in acute exacerbation
Checking ECHO
#HTN
cont home lisinopril and propranalol with holding parameters
#chronic peripheral vertigo
cont home meclizine and prn
#Depression
cont home Fluoxetine
#GERD
cont PPI
dvt ppx Heparin
gi ppx protonix
meds reconciled and resumed as appropriate
Full COde as per patient and daughter Geeta ROSSI at bedside
I spent a total of 80 minutes with the patient or on the floor. More than 50% of this time involved counseling and coordination of care.
[2023-09-09] MEDS: VENTOLIN NEBULES 2.5 MG INH (10:49)
[2023-09-09 12:06] LABS: NT-proBNP 1000 pg/ml
[2023-09-09 13:08] LABS: Troponin I 0.033 ng/ml
[2023-09-09 13:42] LABS: Urine Albumin Trace (Neg - Trace); Urine Bilirubin Negative (Negative); Urine Character Slightly Cloudy (Clear); Urine Color Yellow; Urine Glucose Negative (Negative); Urine Ketone Negative (Negative); Urine Leukocyte 2+ (Negative); Urine Nitrite Negative (Negative); Urine Occult Blood 1+ (Negative); Urine Urobilinogen Negative (Neg - 1+)
--- NOTE | 2023-09-09 13:45 | PTCARENOTE ---
09/08- Patient transferred and oriented to unit without issue. Patient is AAOX3, on 2L O2, Skin CDI but pale. Patient able to ambulate with assistance with walker to bathroom. Patient denies any issues at this time.
--- NOTE | 2023-09-09 14:18 | CON.ID ---
Consultation
-
Date/Time Consultation Requested: 09/09/2023 1306
Date/Time Consultation Performed: 09/09/2023 1350
Requesting Provider: Dr. Turner
Performing Provider: Dr. Gonzalez
Reason for Consultation: Possible urinary tract infection
Chief Complaint / Past History
History of Present Illness
Ara Mcmahon is an 83-year-old female being evaluated at the request of Dr. Turner in regards to urinary tract infection. History is obtained from chart review, along with patient interview.
The patient presents to the emergency room earlier today with complaints of cough and wheeze. At the [facility] where she resides she was using her inhaler, but she was found to have a low pulse ox and she was sent to the ER for further
evaluation. According to reviewed history she has been on Macrobid for urinary tract infection. She reports that she has been having ongoing issues with urinary tract infections for many years. She had previously seen a urologist in [facility] who had her on some type of medicine that resolved her symptomatology, but because of a change in insurance she could no longer see that provider anymore. Following her last admission she was at [facility] where she was found to have ESBL E.
coli. She reports that she started Macrobid approximately 3 days ago. Since initiating antibiotic therapy she notes ongoing urgency and dysuria, but denies any fevers or chills. She denies any abdominal pain. She is not sure whether any of her
symptoms are secondary to a vaginal yeast infection.
Workup in the emergency room did not reveal a peripheral leukocytosis.
Past History
Additional Past Medical History:
Asthma
Chronic headaches
Hx UTI's
Obesity
Hypothyroidism
HTN
GERD
Depression
Past Surgical History: None
Allergy History:
No Known Allergies Allergy (Unverified 07/25/23 19:33)
Medications Reviewed: Yes
Current Antibiotics:
Outpatient macrobid
Social History
Tobacco: Non-Smoker
Alcohol: None
Drug: None
Living: Assisted Living
Employment: Retired
Family History
Family History: Not Pertinent
Review of Systems
Vital Signs
Temp Pulse Resp BP Pulse Ox
97.9 F 110 24 134/65 94
09/09/23 13:57 09/09/23 13:57 09/09/23 13:57 09/09/23 13:57 09/09/23 13:57
Physical Exam
Physical Exam
Constitutional: No Acute Distress, Comfortable and Non-toxic
Eyes: Pupils Equal, Pupils Round, No Conjunctival Hemorrhage and Sclera Anicteric
Oral: No Thrush and No Ulcers
Cardiovascular: Regular Rate and S1/S2; Negative S3/S4
Pulmonary: Clear and Non Labored; Negative Wheezes, Rales or Rhonchi
Gastrointestinal: Soft, Non Tender, Non Distended, Normal Bowel Sounds, No Rebound and No Guarding
Extremities: Edema; Negative Cyanosis, Erythema or Splinter Hemorrhage
Musculoskeletal: Negative Joint Swelling
Skin: Warm and Dry; Negative Rash or Jaundice
Wound: None
Neurological: Awake and Alert
Psychological: Calm
Lab / Diagnostic Study Results
09/09/23 07:31
09/09/23 07:31
Abs Immat Gran (auto) 0.0 10^3/uL (0-0.05) 09/09/23 07:31
Absolute Neuts (auto) 5.8 10^3/uL (1.4-6.5) 09/09/23 07:31
Absolute Lymphs (auto) 1.6 10^3/uL (1.2-3.4) 09/09/23 07:31
Absolute Monos (auto) 0.6 10^3/uL (0.1-0.6) 09/09/23 07:31
Absolute Basos (auto) 0.0 10^3/uL (0-0.2) 09/09/23 07:31
Immature Gran % 0.4 % (0-0.5) 09/09/23 07:31
Neutrophils % 70.3 % (42.2-75.2) 09/09/23 07:31
Lymphocytes % 18.9 % (20.5-51.1) L 09/09/23 07:31
Monocytes % 7.3 % (1.7-9.3) 09/09/23 07:31
Eosinophils % 2.7 % (0-6) 09/09/23 07:31
Basophils % 0.4 % (0-2) 09/09/23 07:31
Microbiology Results
Micro:
09/09/23 13:18 Urine Culture - Pending
Urine
Imaging:
09/09/2023 CT chest (PE study): Limited study secondary to respiratory motion artifact. No central or segmental pulmonary embolus. Cardiomegaly and mild CHF, with small bilateral pleural effusions. There is trace pericardial effusion noted.
Please see full dictation for additional detail.
Assessment / Plan
Ongoing dysuria and urinary urgency
Hx ESBL E. coli in urine
Shortness of breath
Asthma
Chronic headaches
Hx UTI's
Obesity
Hypothyroidism
HTN
GERD
Depression
Recommendations:
Urinalysis reveals pyuria. Urine culture currently pending.
Will give 1 dose of ertapenem now and observe while cultures pending.
- Await urine culture to guide further antimicrobial therapy.
- If cultures are otherwise negative, may be able to transition back to nitrofurantoin.
Follow white count temperature curve.
Further recommendations as additional data is returned.
[2023-09-09 14:24] LABS: Urine Mucus Few
[2023-09-09 14:25] LABS: Urine White Cell >100 /HPF (0-5)
[2023-09-09 14:26] LABS: Urine Bacteria Many (Negative)
[2023-09-09] MEDS: NSS 1000 IV (14:30)
--- NOTE | 2023-09-09 14:30 | PTCARENOTE ---
Addendum entered by Majo Mondragon RN 09/09/23 15:07:
09/08- Patient's HR currently in AFib without RVR. Current HR ranges between 95-105 at this time. Patient currently remains asymptomatic. Will continue to observe.
Original Note:
09/08- Patient's HR on Telemetry is sustaining in 120s-140s, intermittently in Sinus Tachycardia and AFib. Notified Physician. Obtained order for Metoprolol 5mg IV Q4 PRN, which I administered as ordered. 12lead EKG obtained, showed AFib with
RVR. Patient denies any S/S or chest pain at this time. AAOX3, Skin=pale/dry/intact. +PulsesX4. No SOB currently observed. Will continue to observe.
[2023-09-09] MEDS: LOPRESSOR 5 MG IV (14:41)
[2023-09-09] MEDS: HEPARIN 5000 UNITS SC (15:37)
[2023-09-09] MEDS: INVANZ 60 MG IV (15:37)
[2023-09-09] MEDS: INDERAL 20 MG PO (15:39)
--- NOTE | 2023-09-09 16:07 | CON.CAR ---
Addendum entered and electronically signed by Young Blanton MD 09/09/23 17:09:
I saw and examined the patient.
The OIL FIELD EQUIPMENT MECHANIC's note was reviewed and I agree with the note.
Comment: 83 y/o female with obesity, hypothyroidism, hypertension, GERD, asthma, vertigo who is here for evaluation of SOB, as well as urinary frequency. She appears to have mild CHF exacerbation, UTI, and new AF RVR.
- Lasix IV
- Eliquis
- Dilt for rate control consider NATALY DCCV prior to discharge or soon thereafter
Original Note:
Consultation
Consultation Request
Date/Time Consultation Requested: 09/09/23 1600
Date/Time Consultation Performed: 09/09/23 1620
Requesting Provider: Dr. Turner
Performing Provider: Teodora BAER for Dr. Blanton
Reason for Consultation: AFIB, poss CHF
Medical History
-
Chief Complaint: ALEJANDRO, also urinary frequency
History of Present Illness:
83 y/o female with obesity, hypothyroidism, hypertension, GERD, asthma, vertigo who is here for evaluation of SOB, as well as urinary frequency. The SOB woke her from sleep. She is being treated for asthma exacerbation with inhaler therapies. She is
being treated with ABX for UTI. We are consulted since she is noted to be in AFIB with RVR with HR's in the 100's. She was in SR on arrival. There is also concern for CHF.
Past Medical History
Past Medical History: Asthma, GERD, HTN, Hypothyroidism and Other (as above)
Family History
Family History: Reviewed & Not Pertinent
Allergies / Home Medications
Allergy/AdvReac Type Severity Reaction Status Date / Time
No Known Allergies Allergy Unverified 07/25/23 19:33
�Medication �Instructions �Recorded �Confirmed �Type
acetaminophen 500 mg tablet 500 mg PO DAILY@2000 Pain 07/26/23 09/09/23 History
albuterol sulfate 90 mcg/actuation 2 puff inhalation R DAILYPRN PRN 07/26/23 09/09/23 History
aerosol inhaler shortness of breath
levothyroxine 112 mcg tablet 112 mcg PO DAILY@0600 Thyroid 07/26/23 09/09/23 History
magnesium glycinate 100 mg PO DAILY Supplement 07/26/23 09/09/23 History
meclizine 12.5 mg tablet 12.5 mg PO DAILY vertigo 07/26/23 09/09/23 History
montelukast 10 mg tablet 10 mg PO DAILY Allergies 07/26/23 09/09/23 History
omeprazole 40 mg capsule,delayed 40 mg PO DAILY@0600 07/26/23 09/09/23 History
release Gastrointestinal Issue
acetaminophen 325 mg tablet 650 mg PO Q4H PRN mild pain/fever 09/09/23 09/09/23 History
(Tylenol)
albuterol sulfate 90 mcg/actuation 2 puff inhalation Q4HPRN PRN 09/09/23 Rx
aerosol inhaler (ProAir HFA) shortness of breath #8.5 grams
fluoxetine 20 mg capsule 60 mg PO DAILY Mental Health 09/09/23 09/09/23 History
fluticasone furoate 100 1 inh inhalation R DAILY 09/09/23 09/09/23 History
mcg-vilanterol 25 mcg/dose Lung/Breathing Issues
inhalation powder (Breo Ellipta)
lisinopril 10 mg tablet 10 mg PO BID Blood Pressure 09/09/23 09/09/23 History
meclizine 12.5 mg tablet 12.5 mg PO Q8HPRN PRN dizziness 09/09/23 09/09/23 History
methylprednisolone 4 mg tablets in See Rx Instructions PO .COMPLEX 09/09/23 Rx
a dose pack (Medrol (Cristo)) #21 ea
propranolol 20 mg tablet 20 mg PO BID@0800,1700 Blood 09/09/23 09/09/23 History
Pressure
Review of Systems
-
History Source: Patient and Other (and chart)
All other systems: Negative unless noted
Constitutional: Other (poor appetite)
Respiratory: Trouble Breathing (ALEJANDRO)
: Frequency
Physical Exam
Vital Signs
Temp Pulse Resp BP Pulse Ox
97.9 F 105 24 141/70 94
09/09/23 13:57 09/09/23 15:39 09/09/23 13:57 09/09/23 15:39 09/09/23 13:57
Lab Results
09/09/23 07:31
09/09/23 07:31
Troponin I 0.033 ng/ml 09/09/23 12:35
Uyj-Z-Dodtemgzhlc Pept 1000 pg/ml 09/09/23 07:31
Physical Exam
General: Well Developed, Well Nourished and No Apparent Distress
HEENT: Normocephalic and Anicteric
Respiratory: Other (on O2 by NC, diminished to bases)
Cardiac: Irregular Rhythm
Musculoskeletal: Edema (mild BLE edema)
Skin: Warm and Dry
Neuro: AO x 3
Psych: Calm
Impression / Plan
-
SOB:
-being treated for asthma exacerbation
-also appears to have CHF based on symptoms, assessment, CXR- acute, type unknown- would stop IVF. Add IV lasix, which requires intensive monitoring. Checking echo.
AFIB, paroxysmal:
-new diagnosis
-HR mildly elevated- will add diltiazem 180 mg PO daily
-[id number] score is 4 for age, female, HTN- start Eliquis 5 mg PO BID- consult CM for pricing
-TSH pending
UTI:
-patient with hx recurrent UTI's
-on ABX per ID
HTN:
-on ACEI and BB as OP
-monitor with adjustment in medical therapy
Data Reviewed
-
EKG: Tracing Personally Visualized and interpreted (AFIB 101 BPM)
Radiology: Report Reviewed by me (CXR: cardiomegaly and mild CHF with very small bilateral effusions.)
Medical Tests (Nuc Med, Echo etc): Other (echo is pending)
Labs: Labs Reviewed by me
--- NOTE | 2023-09-09 17:09 | CARDSERVLU ---
Echocardiogram with Lumason completed after protocol screening completed. Allergies verified.
Patent IV site: ___RAC__
IV site flushed with 0.9% NaCl pre and post administration.
Diluted bolus method utilized to enhance visualization of ventricular jackson.
Total volume given: __5__ mL
Patient tolerated all procedures well without complications.
[2023-09-09] MEDS: CARDIZEM CD 180 MG PO (17:27)
[2023-09-09] MEDS: LASIX 20 MG IV (17:28)
[2023-09-09 18:31] LABS: TSH Reflex To Free T4 1.27 uIU/ml (0.47-4.68)
[2023-09-09] MEDS: ELIQUIS 5 MG PO (20:23)
[2023-09-09] MEDS: ZESTRIL 10 MG PO (20:23)
[2023-09-09] MEDS: TYLENOL 500 MG PO (20:24)
[2023-09-09] MEDS: SYMBICORT 80/4.5 MCG INHALER 2 PUFF INH (20:37)
[2023-09-09] MEDS: XOPENEX 0.63 MG INHALANT SOLUTION 0.630000000000000004 MG INH (20:38)
[2023-09-10] VITALS (8 sets, daily range): BP systolic 108–140; BP diastolic 58–68; O2SAT 98; BMI 37.0
[2023-09-10 05:04] LABS: Hematocrit 33.4 % (37.0-47.0); Hemoglobin 11.2 g/dL (12.0-16.0); Mean Corp Hgb Conc. 33.5 g/dL (33.0-37.0); Mean Corpuscular Hgb 30.4 pg (27.0-31.0); Mean Corpuscular Volume 90.5 fL (81.0-99.0); Mean Platelet Volume 9.8 fL (7.4-10.4); Platelet Count 269 10^3/uL (130-400); Red Blood Cell Count 3.69 10^6/uL (4.20-5.40); Red Cell Dist. Width 13.8 % (11.5-14.5); White Blood Cell Count 10.3 10^3/uL (4.8-10.8)
[2023-09-10 05:25] LABS: Blood Urea Nitrogen 29 mg/dl (7-17); Calcium 9.6 mg/dl (8.4-10.2); Carbon Dioxide 24 mmol/L (22-30); Chloride 109 mmol/L (98-107); Estimated Creatinine Clearance 53 ml/min; Glucose 107 mg/dl (70-99); Magnesium 1.8 mg/dl (1.6-2.3); Potassium 4.6 mmol/L (3.5-5.1); Sodium 142 mmol/L (135-145); eGFR 55.55
[2023-09-10] MEDS: SYNTHROID 112 MCG PO (05:39)
[2023-09-10] MEDS: TYLENOL 650 MG PO ×2 (05:43→17:13)
--- NOTE | 2023-09-10 07:20 | W.PN.HOSP.TC ---
Today's Communication/Plan
-
cont IV abx as per ID
monitor off Lasix as per Cardio
Eliquis
Cardizem dose reduced d/t bradycardia
wean O2 supplementation as tolerated
PT/OT
Assessment / Plan
Assessment / Plan
Physical Exam
General: No pallor, cyanosis, or jaundice. Obese
HEENT: Throat clear. PERRLA Normocephalic atraumatic
NECK: Supple. No JVD Carotid Bruits
RESPIRATORY: Lungs clear to auscultation. No crackles wheezes stridor
CVS: S1, S2 normal. RRR. No murmur, rub or gallop.
ABDOMEN: Soft, non-tender. No distension. BS+/normal.
EXTREMITIES: No peripheral cyanosis or edema.
UI DEVELOPER WITH ANGULAR JS: AOx3. No focal deficits.
IMPRESSION:
83F obesity chronic peripheral vertigo migraine hypothyroidism hypertension Essential tremors GERD depression hx ESBL E. coli in urine asthma recently evaluated at this facility earlier last month for vertigo and discharged to SNF rehab, brought in
by daughter due to concerns progressive exertional dyspnea shortness of breath urinary frequency poor oral intake for the past few days. Daughter reports that patient was recently discharged from shelter facility rehab a week ago.
Developed acute shortness of breath this morning not relieved with home inhalers. Treated in ED with nebulizer treatment and steroids with subsequent improvement in symptoms. Vital signs stable on room air afebrile nonlabored respiration but
significant impairment exercise tolerance exertional dyspnea with few steps. No leukocytosis mild creatinine elevation 1.1 possible CKD 3 baseline, BNP elevated 1000. Chest x-ray notes mild cardiomegaly and small bilateral pleural effusions.
Patient and daughter deny recent weight gain, no leg edema or crackles on auscultation.
PLAN:
#Asthma Exacerbation
#Exertional Dyspnea Debilitating
#Acute worsening shortness of breath, S1Q3T3 noted on EKG
received nebulizers and steroid in ED
non-labored respiration stable on room air at rest, no wheezing crackles noted on auscultation
significant impairment exercise tolerance with few steps associate shortness of breath tachypnea
Duoneb R QID switched to Xopenex R TID following development afib rvr as below, since switched to prn due to lack of wheezing shortness of breath at rest
iptratropium prn sob wheezing
cont home Breo Ellipta montelukast
hold off on further steroids for now
CT chest appreciated limited by respiratory motion artifact, no PE noted, cardiomegaly and mild CHF noted
PT/OT eval appreciated home services vs no needs
fall precautions
oxygen supplementation prn
home oxygen assessment in AM
#Suspected UTI
#Hx ESBL E.coli in urine
#patient reportedly on Macrobid for UTI
#Mild Cr elevation 1.1 appears baseline suspect CKD III
Reports urinary frequency but denies dysuria
Afebrile no leukocytosis
urinalysis appreciated significant pyuria, urine cx appreciated Gram neg bacilli
ID eval appreciated ertapenem IV daily x3 days
Daughter reports poor oral intake, patient afraid to drink d/t concerns urinary frequency with associate exercise intolerance.
briefly received IVF for possible dehydration discontinued d/t concerns heart failure
monitor renal function
#new onset afib rvr
#Possible Heart Failure
BNP 1000 with associate renal insufficiency
daily weight I/O
ECHO appreciated 65-70%
Cardio eval appreciated
-briefly treated with IV diuretics since discontinued, no obvious signs heart failure on examination
-Eliquis 5 mg BID stroke reduction
- patient converted spontaneously NSR overnight following start of oral cardizem
Significant bradycardia noted 40s 50s, reportedly dipped to 30s overnight, bp stable, Cardizem since reduced to 120 mg daily
#HTN
cont home lisinopril and propranalol with holding parameters
#chronic peripheral vertigo
cont home meclizine and prn
#Depression
cont home Fluoxetine
#GERD
cont PPI
dvt ppx Heparin
gi ppx protonix
Full COde
Daughter Geeta called throughout day to provide update, no answer received
I spent a total of 58 minutes with the patient or on the floor. More than 50% of this time involved counseling and coordination of care.
Anticipated Discharge: 24 - 48 hours
Subjective/Interval History
-
Date of Service: September 10, 2023
Continues to report exertional dyspnea on oxygen supplementation.
Objective Data
-
Labs:
Laboratory Results
09/10/23
04:50
WBC 10.3
Hgb 11.2 L
Hct 33.4 L
Plt Count 269
Sodium 142
Potassium 4.6
Chloride 109 H
Carbon Dioxide 24
BUN 29 H
Creatinine 1.0
Glucose 107 H
Calcium 9.6
Vital Signs:
Vital Signs
Temp Pulse Resp BP Pulse Ox
97.1 F 62 18 108/64 99
09/10/23 03:50 09/10/23 03:50 09/10/23 03:50 09/10/23 03:50 09/10/23 03:50
I&O
09/09/23 09/10/23 09/11/23
06:59 06:59 06:59
Intake Total 840 / 840
Balance 840 / 840
[2023-09-10] MEDS: CARDIZEM CD 180 MG PO (07:44)
[2023-09-10] MEDS: ANTIVERT 12.5 MG PO (07:45)
[2023-09-10] MEDS: ZESTRIL 10 MG PO ×2 (07:45→21:05)
[2023-09-10] MEDS: PROZAC 60 MG PO (07:45)
[2023-09-10] MEDS: XOPENEX 0.63 MG INHALANT SOLUTION 0.630000000000000004 MG INH (07:45)
[2023-09-10] MEDS: SYMBICORT 80/4.5 MCG INHALER 2 PUFF INH ×2 (07:45→21:31)
[2023-09-10] MEDS: INDERAL 20 MG PO ×2 (07:46→17:11)
[2023-09-10] MEDS: PROTONIX 40 MG PO (07:46)
[2023-09-10] MEDS: ELIQUIS 5 MG PO ×2 (07:46→21:05)
[2023-09-10] MEDS: LASIX 20 MG IV (07:47)
--- NOTE | 2023-09-10 07:53 | W.PN.CD ---
Today's Communication / Plan
-
-No obvious signs of CHF on examination; EF 65-70% with no significant valvulopathy on echocardiogram, and proBNP was only 1000.
-Will discontinue Lasix; does not appear that the patient will need any at home.
-Patient converted back to sinus rhythm overnight.
-Can discharge on Cardizem CD 180 mg daily and Eliquis 5 mg twice daily.
-Outpatient ischemic evaluation (stress test); follow-up Cardiology appointment will be made.
Impression / Plan
-
SOB:
-Most likely secondary to asthma exacerbation.
-No obvious signs of CHF on examination; EF 65-70% with no significant valvulopathy on echocardiogram, and proBNP was only 1000.
-Will discontinue Lasix; does not appear that the patient will need any at home.
New onset paroxysmal AFIB:
-new diagnosis
-Patient converted back to sinus rhythm overnight.
-[id number] score is 4 for age, female, HTN- start Eliquis 5 mg PO BID- consult CM for pricing
--SH is normal.
-Can discharge on Cardizem CD 180 mg daily and Eliquis 5 mg twice daily.
-Outpatient ischemic evaluation (stress test); follow-up Cardiology appointment will be made.
UTI:
-patient with hx recurrent UTI's
-on ABX per ID
HTN:
-Fairly controlled; continue current doses of lisinopril and propranolol.
Physical Exam
Vital Signs/Labs
Vital Signs
Temp Pulse Resp BP Pulse Ox
98.1 F 54 14 140/60 99
09/10/23 07:38 09/10/23 07:47 09/10/23 07:47 09/10/23 07:38 09/10/23 07:47
09/09/23 09/10/23 09/11/23
06:59 06:59 06:59
Actual Weight 107.048 kg
09/10/23 04:50
09/10/23 04:50
Magnesium 1.8 mg/dl (1.6-2.3) 09/10/23 04:50
09/09/23
07:31
Yjf-S-Wtpsbrrtgaq Pept 1000
LAB Results
09/09/23 09/09/23
07: 12:35
Troponin I Cancelled 0.033
Physical Exam
Constitutional: No acute distress and Comfortable
EENT: Anicteric
Cardiovascular: Rhythm & rate is regular, Pedal edema is absent, Systolic murmur absent and S1S2 is normal
Respiratory: Respiratory effort normal and Lungs clear to auscul.
GI: Soft
Neuro/Psych: AO x 3
Other: Skin (Warm, dry, intact)
Data Reviewed
-
Date of Service: September 10, 2023
EKG: Tracing Personally Visualized and interpreted (Telemetry: A-fib --> sinus rhythm)
Echo: Tracing Personally Visualized and interpreted (EF 65-70%, no significant valvulopathy)
Medical Tests (PFT, Pathology etc): Discussed with Nurse and Discussed with Patient
Labs: Labs Reviewed by me
--- NOTE | 2023-09-10 09:17 | CM ---
Addendum entered by Kalpana Jett 09/10/23 13:10:
[facility]
Notified Admissions with correct address
Addendum entered by Kalpana Jett 09/10/23 12:54:
Notified Attending via TT and requested scripts for the following:
3 separate scripts needed: one for PT Evaluate & Treat; one for OT Evaluate & Treat; and another for Correction Evaluate & Treat
Asked Attending to leave the scripts in the patient's chart. Please fax them to #[phone] when available
Addendum entered by Kalpana Jett 09/10/23 12:39:
Spoke with Kavitha @ [facility] ; facility does not accept patients over the weekend; Attending notified
Patient's address verified: [address] [place] [address], [address] [place] [address]
Pharmacy verified: [facility]
Case Management Referral Faxed to #[phone]
Addendum entered by Kalpana Jett 09/10/23 12:21:
Met with patient at bedside; initial assessment completed
Pharmacy verified: [facility]
Patient lives @ [facility]isted Living; moved there a couple of months ago. Her bathroom has walk-in shower with seat and grab bar
Ambulates with a Rollator; reports she is able to bathe, dress, and feed self; goes to dining room for meals; no longer drives
Daughter will transport home
SNF stay @ [facility] in the past
DME: No oxygen @ home
PT recommends Home Health for PT
Gave patient's nurse coupon for Eliquis
Plan: return to prior living situation when medically stable; monitor for home oxygen need
Original Note:
Case Management consult completed
Cost for 30 day supply of Eliquis 5 mg BID is $117.05; Attending notified via [place] Text
--- NOTE | 2023-09-10 11:54 | W.PN.ID1 ---
Date of Service
Date of Service: September 10, 2023
Today's Communication
No evidence of pyelonephritis
Continue ertapenem plan 3 day course, tomorrow will be final day
Stable for dc after tomorrows dose
Assessment / Plan
Recurrent UTI
Hx ESBL E. coli in urine
Shortness of breath
Asthma
Chronic headaches
Hx UTI's
Obesity
Hypothyroidism
HTN
GERD
Depression
Recommendations:
Urinalysis reveals pyuria. Urine culture 100 K GNR -follow
No evidence of pyelonephritis
Continue ertapenem plan 3 day course, tomorrow will be final day
Stable for dc after tomorrows dose
Chief Complaint
-: UTI
Subjective / Review of Systems
afebrile
bp stable
without leukocytosis
cr stable
urine culture 100 K GNR
no cva tenderness
Vital Signs / Physical Exam
Vital Signs
Vital Signs
Temp Pulse Resp BP Pulse Ox
98.5 F 54 16 123/58 97
09/10/23 11:43 09/10/23 11:43 09/10/23 11:43 09/10/23 11:43 09/10/23 11:43
Physical Exam
Constitutional: No Acute Distress
Cardiovascular: Regular Rate and S1/S2; Negative Murmur or Rub
Pulmonary: Clear and Symmetric; Negative Wheezes or Rales
Gastrointestinal: Soft, Non Tender, Non Distended and Normal Bowel Sounds
Genito-Urinary: Negative Suprapubic Tenderness or CVA Tenderness
Skin: Warm and Dry; Negative Rash or Jaundice
Objective Data
Lab Data
Lab Results
09/10/23 04:50
09/10/23 04:50
Estimated Creat Clear 53 ml/min 09/10/23 04:50
Total Bilirubin 0.4 mg/dl (0.2-1.3) 09/09/23 07:31
AST 17 U/L (14-36) 09/09/23 07:31
ALT 11 U/L (0-35) 09/09/23 07:31
Alkaline Phosphatase 65 U/L (38-126) 09/09/23 07:31
Most recent labs reviewed.
Micro Results:
09/09/23 13:18 Urine Culture - Preliminary
Urine Gram negative bacilli
Imaging:
09/09/2023 CT chest (PE study): Limited study secondary to respiratory motion artifact. No central or segmental pulmonary embolus. Cardiomegaly and mild CHF, with small bilateral pleural effusions. There is trace pericardial effusion noted.
Please see full dictation for additional detail.
[2023-09-10] MEDS: INVANZ 60 MG IV (12:22)
[2023-09-10] MEDS: SINGULAIR 10 MG PO (17:11)
[2023-09-10] MEDS: TYLENOL 500 MG PO (21:05)
[2023-09-11] VITALS (7 sets, daily range): BP systolic 104–145; BP diastolic 58–72; BMI 34.7
[2023-09-11] MEDS: SYNTHROID 112 MCG PO (05:30)
[2023-09-11 05:36] LABS: Hematocrit 31.7 % (37.0-47.0); Hemoglobin 10.4 g/dL (12.0-16.0); Mean Corp Hgb Conc. 32.8 g/dL (33.0-37.0); Mean Corpuscular Hgb 30.1 pg (27.0-31.0); Mean Corpuscular Volume 91.6 fL (81.0-99.0); Mean Platelet Volume 9.9 fL (7.4-10.4); Platelet Count 237 10^3/uL (130-400); Red Blood Cell Count 3.46 10^6/uL (4.20-5.40); White Blood Cell Count 8.5 10^3/uL (4.8-10.8)
[2023-09-11 07:20] LABS: Blood Urea Nitrogen 35 mg/dl (7-17); Carbon Dioxide 26 mmol/L (22-30); Chloride 106 mmol/L (98-107); Estimated Creatinine Clearance 42 ml/min; Glucose 95 mg/dl (70-99); Magnesium 1.8 mg/dl (1.6-2.3); Sodium 139 mmol/L (135-145); eGFR 44.64
[2023-09-11] MEDS: PROTONIX 40 MG PO (08:22)
[2023-09-11] MEDS: ANTIVERT 12.5 MG PO (08:22)
[2023-09-11] MEDS: CARDIZEM CD PO (08:22)
[2023-09-11] MEDS: ELIQUIS 5 MG PO ×2 (08:22→20:03)
[2023-09-11] MEDS: PROZAC 60 MG PO (08:22)
[2023-09-11] MEDS: INDERAL PO ×2 (08:23→17:33)
[2023-09-11] MEDS: SYMBICORT 80/4.5 MCG INHALER 2 PUFF INH ×2 (08:47→20:42)
[2023-09-11] MEDS: ZESTRIL 10 MG PO ×2 (09:53→20:03)
--- NOTE | 2023-09-11 10:37 | W.PN.HOSP.TC ---
Today's Communication/Plan
-
wean O2 supplementation as tolerated
speech eval
PT/OT
cont rate control propranalol cardizem with holding parameters
bronchodilators prn SOB/wheezing
Assessment / Plan
Assessment / Plan
Physical Exam
General: No pallor, cyanosis, or jaundice. Obese
HEENT: Throat clear. PERRLA Normocephalic atraumatic
NECK: Supple. No JVD Carotid Bruits
RESPIRATORY: Lungs clear to auscultation. No crackles wheezes stridor on Nasal cannula oxygen supplementation
CVS: S1, S2 normal. RRR. No murmur, rub or gallop.
ABDOMEN: Soft, non-tender. No distension. BS+/normal.
EXTREMITIES: No peripheral cyanosis or edema.
CONTINUOUS IMPROVEMENT CONSULTANT: AOx3. No focal deficits.
IMPRESSION:
83F obesity chronic peripheral vertigo migraine hypothyroidism hypertension Essential tremors GERD depression hx ESBL E. coli in urine asthma recently evaluated at this facility earlier last month for vertigo and discharged to SNF rehab, brought in
by daughter due to concerns progressive exertional dyspnea shortness of breath urinary frequency poor oral intake for the past few days. Daughter reports that patient was recently discharged from residential facility rehab a week ago.
Developed acute shortness of breath this morning not relieved with home inhalers. Treated in ED with nebulizer treatment and steroids with subsequent improvement in symptoms. Vital signs stable on room air afebrile nonlabored respiration but
significant impairment exercise tolerance exertional dyspnea with few steps. No leukocytosis mild creatinine elevation 1.1 possible CKD 3 baseline, BNP elevated 1000. Chest x-ray notes mild cardiomegaly and small bilateral pleural effusions.
Patient and daughter deny recent weight gain, no leg edema or crackles on auscultation.
PLAN:
#Asthma Exacerbation
#Exertional Dyspnea Debilitating
#Acute worsening shortness of breath, S1Q3T3 noted on EKG
received nebulizers and steroid in ED
non-labored respiration stable on room air at rest, no wheezing crackles noted on auscultation
significant impairment exercise tolerance with few steps associate shortness of breath tachypnea
Duoneb R QID switched to Xopenex R TID following development afib rvr as below, since switched to prn due to lack of wheezing shortness of breath at rest
iptratropium prn sob wheezing
cont home Breo Ellipta montelukast
hold off on further steroids for now
CT chest appreciated limited by respiratory motion artifact, no PE noted, cardiomegaly and mild CHF noted
PT/OT eval appreciated home services vs no needs
fall precautions
oxygen supplementation prn
home oxygen assessment prior to discharge
#Suspected UTI
#Hx ESBL E.coli in urine
#patient reportedly on Macrobid for UTI
#Mild Cr elevation 1.1 appears baseline suspect CKD III
Reports urinary frequency but denies dysuria
Afebrile no leukocytosis
urinalysis appreciated significant pyuria, urine cx appreciated Gram neg bacilli
ID eval appreciated ertapenem IV daily x3 days
Daughter reports poor oral intake, patient afraid to drink d/t concerns urinary frequency with associate exercise intolerance.
briefly received IVF for possible dehydration discontinued d/t concerns heart failure
monitor renal function
#new onset afib rvr
#Possible Heart Failure
BNP 1000 with associate renal insufficiency
daily weight I/O
ECHO appreciated 65-70%
Cardio eval appreciated
-briefly treated with IV diuretics since discontinued, no obvious signs heart failure on examination
-Eliquis 5 mg BID stroke reduction
- patient converted spontaneously NSR overnight following start of oral cardizem
Significant bradycardia noted 40s 50s, reportedly dipped to 30s overnight, bp stable, Cardizem since reduced to 120 mg daily cont with holding parameters
#HTN
cont home lisinopril and propranalol with holding parameters
#chronic peripheral vertigo
cont home meclizine and prn
#Depression
cont home Fluoxetine
#GERD
cont PPI
PT/OT appreciated home health
dvt ppx Heparin
gi ppx protonix
Full COde
discussed with patient
Daughter Geeta called no answer received message for call back left.
I spent a total of 58 minutes with the patient or on the floor. More than 50% of this time involved counseling and coordination of care.
Anticipated Discharge: 24 - 48 hours
Subjective/Interval History
-
Date of Service: September 11, 2023
remains oxygen dependent though weaning down. No acute distress. lungs clear to auscultation.
Objective Data
-
Labs:
Laboratory Results
09/11/23 09/11/23
05:20 06:39
WBC 8.5
Hgb 10.4 L
Hct 31.7 L
Plt Count 237
Sodium Cancelled 139
Potassium Cancelled 4.0
Chloride Cancelled 106
Carbon Dioxide Cancelled 26
BUN Cancelled 35 H
Creatinine Cancelled 1.2 H
Glucose Cancelled 95
Calcium Cancelled 9.0
Vital Signs:
Vital Signs
Temp Pulse Resp BP Pulse Ox
97.7 F 56 16 145/69 99
09/11/23 07:00 09/11/23 08:50 09/11/23 08:50 09/11/23 08:22 09/11/23 08:50
I&O
09/10/23 09/11/23 09/12/23
06:59 06:59 06:59
Intake Total 840 / 840 1080 / 1080 180 / 180
Balance 840 / 840 1080 / 1080 180 / 180
[2023-09-11] MEDS: INVANZ 60 MG IV (11:10)
--- NOTE | 2023-09-11 11:39 | W.PN.ID1 ---
Date of Service
Date of Service: September 11, 2023
Today's Communication
Stable for dc from ID perspective after todays dose of ertapenem
Assessment / Plan
Recurrent UTI
Hx ESBL E. coli in urine
Shortness of breath
Asthma
Chronic headaches
Hx UTI's
Obesity
Hypothyroidism
HTN
GERD
Depression
Recommendations:
Urinalysis reveals pyuria. Urine culture 100 K GNR -follow
No evidence of pyelonephritis
Continue ertapenem plan 3 day course, today is final day
Stable for dc from ID perspective after todays dose of ertapenem
Chief Complaint
-: UTI
Subjective / Review of Systems
afebrile
bp stable
without leukocytosis
cr 1.2 today
urine culture 100K GNR
Vital Signs / Physical Exam
Vital Signs
Vital Signs
Temp Pulse Resp BP Pulse Ox
98.1 F 60 16 104/72 99
09/11/23 11:17 09/11/23 11:17 09/11/23 11:17 09/11/23 11:17 09/11/23 08:50
Physical Exam
Constitutional: No Acute Distress
Cardiovascular: Regular Rate and S1/S2; Negative Murmur or Rub
Pulmonary: Clear and Symmetric; Negative Wheezes or Rales
Gastrointestinal: Soft, Non Tender, Non Distended and Normal Bowel Sounds
Genito-Urinary: Negative Suprapubic Tenderness or CVA Tenderness
Skin: Warm and Dry; Negative Rash or Jaundice
Objective Data
Lab Data
Lab Results
09/11/23 05:20
09/11/23 06:39
Estimated Creat Clear 42 ml/min 09/11/23 06:39
Total Bilirubin 0.4 mg/dl (0.2-1.3) 09/09/23 07:31
AST 17 U/L (14-36) 09/09/23 07:31
ALT 11 U/L (0-35) 09/09/23 07:31
Alkaline Phosphatase 65 U/L (38-126) 09/09/23 07:31
Most recent labs reviewed.
Micro Results:
09/09/23 13:18 Urine Culture - Preliminary
Urine Gram negative bacilli
Imaging:
09/09/2023 CT chest (PE study): Limited study secondary to respiratory motion artifact. No central or segmental pulmonary embolus. Cardiomegaly and mild CHF, with small bilateral pleural effusions. There is trace pericardial effusion noted.
Please see full dictation for additional detail.
[2023-09-11] MEDS: SINGULAIR 10 MG PO (17:32)
[2023-09-11] MEDS: TYLENOL 500 MG PO (20:03)
--- NOTE | 2023-09-12 01:00 | PTCARENOTE ---
Addendum entered by Emilie Menendez RN 09/12/23 01:09:
Notified KEYUR Rod.
Original Note:
Pt. converted back to controlled a-fib 70's from SB 50's.
[2023-09-12 03:05] VITALS: BP 152/68
[2023-09-12] MEDS: SYNTHROID 112 MCG PO (05:42)
[2023-09-12 06:00] VITALS: BMI 36.1
--- NOTE | 2023-09-12 07:09 | W.PN.HOSP.TC ---
Today's Communication/Plan
-
wean O2 supplementation as tolerated
Pulm eval
cont rate control propranalol cardizem with holding parameters
Eliquis
bronchodilators prn SOB/wheezing
Assessment / Plan
Assessment / Plan
Physical Exam
General: No pallor, cyanosis, or jaundice. Obese
HEENT: Throat clear. PERRLA Normocephalic atraumatic
NECK: Supple. No JVD Carotid Bruits
RESPIRATORY: Lungs clear to auscultation. No crackles wheezes stridor on Nasal cannula oxygen supplementation
CVS: S1, S2 normal. RRR. No murmur, rub or gallop.
ABDOMEN: Soft, non-tender. No distension. BS+/normal.
EXTREMITIES: No peripheral cyanosis or edema.
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 No focal deficits.
IMPRESSION:
83F obesity chronic peripheral vertigo migraine hypothyroidism hypertension Essential tremors GERD depression hx ESBL E. coli in urine asthma recently evaluated at this facility earlier last month for vertigo and discharged to SNF rehab, brought in
by daughter due to concerns progressive exertional dyspnea shortness of breath urinary frequency poor oral intake for the past few days. Daughter reports that patient was recently discharged from [facility] facility rehab a week ago.
Developed acute shortness of breath this morning not relieved with home inhalers. Treated in ED with nebulizer treatment and steroids with subsequent improvement in symptoms. Vital signs stable on room air afebrile nonlabored respiration but
significant impairment exercise tolerance exertional dyspnea with few steps. No leukocytosis mild creatinine elevation 1.1 possible CKD 3 baseline, BNP elevated 1000. Chest x-ray notes mild cardiomegaly and small bilateral pleural effusions.
Patient and daughter deny recent weight gain, no leg edema or crackles on auscultation.
PLAN:
#Asthma Exacerbation
#Exertional Dyspnea Debilitating
#Acute worsening shortness of breath, S1Q3T3 noted on EKG
#Acute Hypoxic Respiratory Failure
received nebulizers and steroid in ED
no wheezing crackles noted on auscultation
significant impairment exercise tolerance with few steps associate shortness of breath tachypnea
Duoneb R QID switched to Xopenex R TID following development afib rvr as below, since switched to prn due to lack of wheezing shortness of breath at rest
iptratropium prn sob wheezing
cont home Breo Ellipta montelukast
hold off on further steroids for now
CT chest appreciated limited by respiratory motion artifact, no PE noted, cardiomegaly and mild CHF noted
PT/OT eval appreciated home services vs no needs
fall precautions
oxygen supplementation prn
Persistent oxygen requirment 2-3L throughout stay unclear etiology
home oxygen assessment prior to discharge
pulm eval requested
#Suspected UTI
#Hx ESBL E.coli in urine
#patient reportedly on Macrobid for UTI
#Mild Cr elevation 1.1 appears baseline suspect CKD III
Reports urinary frequency but denies dysuria
Afebrile no leukocytosis
urinalysis appreciated significant pyuria, urine cx appreciated Gram neg bacilli
ID eval appreciated ertapenem IV daily x3 days
Daughter reports poor oral intake, patient afraid to drink d/t concerns urinary frequency with associate exercise intolerance.
briefly received IVF for possible dehydration discontinued d/t concerns heart failure
monitor renal function
#new onset afib rvr
#Possible Heart Failure
BNP 1000 with associate renal insufficiency
daily weight I/O
ECHO appreciated 65-70%
Cardio eval appreciated
-briefly treated with IV diuretics since discontinued, no obvious signs heart failure on examination
-Eliquis 5 mg BID stroke reduction
- patient converted spontaneously NSR overnight following start of oral cardizem
Significant bradycardia noted 40s 50s, reportedly dipped to 30s overnight, bp stable, Cardizem since reduced to 120 mg daily cont with holding parameters
#HTN
cont home lisinopril and propranalol with holding parameters
#chronic peripheral vertigo
cont home meclizine and prn
#Depression
cont home Fluoxetine
#GERD
cont PPI
PT/OT appreciated home health
dvt ppx Heparin
gi ppx protonix
Full COde
discussed with patient
Daughter Geeta [phone] called no answer received message for call back left.
I spent a total of 50 minutes with the patient or on the floor. More than 50% of this time involved counseling and coordination of care.
Anticipated Discharge: Within 24 hours
Subjective/Interval History
-
Date of Service: September 12, 2023
No acute distress. Reports overall feeling well. Denies new acute issues at this time.
Objective Data
-
Labs:
Laboratory Results
09/12/23
06:00
WBC Pending
Hgb Pending
Hct Pending
Plt Count Pending
Sodium Pending
Potassium Pending
Chloride Pending
Carbon Dioxide Pending
BUN Pending
Creatinine Pending
Glucose Pending
Calcium Pending
Vital Signs:
Vital Signs
Temp Pulse Resp BP Pulse Ox
97.6 F 74 18 152/68 96
09/12/23 03:05 09/12/23 03:05 09/12/23 03:05 09/12/23 03:05 09/12/23 03:05
I&O
09/11/23 09/12/23 09/13/23
06:59 06:59 06:59
Intake Total 1080 / 1080 1060 / 1060
Balance 1080 / 1080 1060 / 1060
[2023-09-12 07:11] VITALS: BP 141/74
[2023-09-12] MEDS: PROZAC 60 MG PO (08:39)
[2023-09-12] MEDS: ANTIVERT 12.5 MG PO (08:39)
[2023-09-12] MEDS: PROTONIX 40 MG PO (08:39)
[2023-09-12] MEDS: ELIQUIS 5 MG PO ×2 (08:39→19:46)
[2023-09-12] MEDS: SYMBICORT 80/4.5 MCG INHALER 2 PUFF INH ×2 (08:42→15:30)
[2023-09-12] MEDS: CARDIZEM CD 120 MG PO (08:47)
[2023-09-12] MEDS: ZESTRIL 10 MG PO ×2 (08:48→19:46)
[2023-09-12] MEDS: INDERAL 20 MG PO ×2 (08:48→17:20)
[2023-09-12 09:14] LABS: Hematocrit 38.7 % (37.0-47.0); Hemoglobin 12.8 g/dL (12.0-16.0); Mean Corp Hgb Conc. 33.1 g/dL (33.0-37.0); Mean Corpuscular Hgb 30.2 pg (27.0-31.0); Mean Corpuscular Volume 91.3 fL (81.0-99.0); Mean Platelet Volume 9.8 fL (7.4-10.4); Platelet Count 298 10^3/uL (130-400); Red Blood Cell Count 4.24 10^6/uL (4.20-5.40); Red Cell Dist. Width 13.8 % (11.5-14.5); White Blood Cell Count 8.4 10^3/uL (4.8-10.8)
[2023-09-12 09:31] LABS: Blood Urea Nitrogen 29 mg/dl (7-17); Calcium 9.3 mg/dl (8.4-10.2); Carbon Dioxide 28 mmol/L (22-30); Chloride 105 mmol/L (98-107); Estimated Creatinine Clearance 52 ml/min; Glucose 87 mg/dl (70-99); Magnesium 1.8 mg/dl (1.6-2.3); Phosphorus 4.3 mg/dl (2.5-4.5); Potassium 4.4 mmol/L (3.5-5.1); Sodium 142 mmol/L (135-145); eGFR 55.55
[2023-09-12 11:20] VITALS: BP 120/75
[2023-09-12] MEDS: INVANZ 60 MG IV (12:38)
[2023-09-12 15:00] VITALS: BP 128/72
--- NOTE | 2023-09-12 16:41 | CON.PUL ---
Consultation
Consultation Request
Date/Time Consultation Requested: 09-12-23
Date/Time Consultation Performed: 09-12-23
Requesting Provider: Hospitalist Santosh
Performing Provider: Dr Oates
Reason for Consultation: dyspnea
Medical History
-
Chief Complaint: dyspnea
History of Present Illness:
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
H/o asthma on breo and alb HFA/ns with reported good compliance.
Upon adm, noted new onset PAF, started apixaban, CHF ruled out, furosemide discontinued. Pulm consulted 09-11
Progressively improving resp symptoms on current inpatient regimen
Off O2 at time of consult
Past Medical History
Past Medical History: Other (see A&P for PMH/PSH)
Social History
Tobacco: Non-smoker
Alcohol: None
Drug: None
Living: With Family
Family History
Family History: Reviewed & Not Pertinent
Allergies / Home Medications
Allergies
Allergy/AdvReac Type Severity Reaction Status Date / Time
No Known Allergies Allergy Unverified 07/25/23 19:33
Home Medications
�Medication �Instructions �Recorded �Confirmed �Last Taken �Type
acetaminophen 500 mg tablet 500 mg PO DAILY@2000 Pain 07/26/23 09/09/23 Unknown History
albuterol sulfate 90 mcg/actuation 2 puff inhalation R DAILYPRN PRN 07/26/23 09/09/23 Unknown History
aerosol inhaler shortness of breath
levothyroxine 112 mcg tablet 112 mcg PO DAILY@0600 Thyroid 07/26/23 09/09/23 Unknown History
magnesium glycinate 100 mg PO DAILY Supplement 07/26/23 09/09/23 Unknown History
meclizine 12.5 mg tablet 12.5 mg PO DAILY vertigo 07/26/23 09/09/23 Unknown History
montelukast 10 mg tablet 10 mg PO DAILY Allergies 07/26/23 09/09/23 Unknown History
omeprazole 40 mg capsule,delayed 40 mg PO DAILY@0600 07/26/23 09/09/23 Unknown History
release Gastrointestinal Issue
acetaminophen 325 mg tablet 650 mg PO Q4H PRN mild pain/fever 09/09/23 09/09/23 Unknown History
(Tylenol)
albuterol sulfate 90 mcg/actuation 2 puff inhalation Q4HPRN PRN 09/09/23 Unknown Rx
aerosol inhaler (ProAir HFA) shortness of breath #8.5 grams
fluoxetine 20 mg capsule 60 mg PO DAILY Mental Health 09/09/23 09/09/23 Unknown History
fluticasone furoate 100 1 inh inhalation R DAILY 09/09/23 09/09/23 Unknown History
mcg-vilanterol 25 mcg/dose Lung/Breathing Issues
inhalation powder (Breo Ellipta)
lisinopril 10 mg tablet 10 mg PO BID Blood Pressure 09/09/23 09/09/23 Unknown History
meclizine 12.5 mg tablet 12.5 mg PO Q8HPRN PRN dizziness 09/09/23 09/09/23 Unknown History
methylprednisolone 4 mg tablets in See Rx Instructions PO .COMPLEX 09/09/23 Unknown Rx
a dose pack (Medrol (Cristo)) #21 ea
propranolol 20 mg tablet 20 mg PO BID@0800,1700 Blood 09/09/23 09/09/23 Unknown History
Pressure
Review of Systems
-
History Source: Patient
All other systems: Negative unless noted
Constitutional: Fatigue
Respiratory: Trouble Breathing
Neuro: Weakness
Vitals / Labs / Diagnostic Testing
Vital Signs
Temp Pulse Resp BP Pulse Ox
97.9 F 66 16 128/72 94
09/12/23 15:00 09/12/23 15:33 09/12/23 15:33 09/12/23 15:00 09/12/23 15:00
Lab Data
09/12/23 08:45
09/12/23 08:45
Microbiology
09/09/23 13:18 Urine Urine Culture - Final
Klebsiella pneumoniae
Diagnostic Testing:
Physical Exam
-
HEENT: Normocephalic, Moist Mucous Membranes and Thrush (n)
Cardiovascular: Regular Rhythm, Murmur, Peripheral Edema (n) and JVD (n)
Respiratory: Rhonchi and Non-Labored Respirations
GI: Soft, Non Distended and Non Tender
Neurology: Awake, AO x 3 and No Motor Deficits
Skin: Warm
General: Respiratory Distress (n)
Assessment
-
Assessment:
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 H/o asthma on breo and alb HFA/ns with reported good compliance. Upon adm, noted new onset PAF, started apixaban, CHF ruled out, furosemide discontinued. Pulm
consulted 09-11
Impression:
Acute hypoxemia
Asthma exacerbation:
Progressively improving
Bilateral pleural effusions
Patchy R sided infiltrates
New onset PAFib
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
Conditions AIRCRAFT DELIVERY CHECKER:
Asthma, on breo ellipta, alb HFA/ns, montelukast
Chronic peripheral vertigo
Migraine
Hypothyroidism
HTN
GERD
Depression
ESBL E coli UTI June 2023
Obesity
Nonsmoker
Plan:
Was on new onset O2 this adm
O2 at 2L earlier today
O2 weaned off at noon, POx 94-97% at rest
Chest CTA on adm: no PE, mild to moderate bilateral dependent pleural effusions, few R sided patchy infiltrates
Levalbuterol nebs prn only
I see no need to start ATC levalb at this juncture
Continue symbicort
Return to fluticasone/vilanterol upon d/c
Not currently on systemic CS, I see no need to start rx given progressive improvement laita today
Not on chronic CS
Kleb pn UTI
On ertapenem since 09-09 by ID
Suspected pneumonic infiltrates on adm chest CT
Ertapenem should cover
No need to recheck CXR at this junctuere
Speech evaluation ordered 09-11 to rule asp component
New PAFib
Started apixaban, continue
TTE 09-08: LVEF 6570%, normal RV
Recurrent E coli UTI
ID following, continue ertapenem
TRT
No objection to d/c in AM if otherwise stable
[2023-09-12] MEDS: SINGULAIR 10 MG PO (17:20)
[2023-09-12 19:41] VITALS: BP 126/68
[2023-09-12] MEDS: TYLENOL 500 MG PO (19:47)
[2023-09-12 22:54] VITALS: BP 122/63
[2023-09-13 03:51] VITALS: BP 146/62
[2023-09-13] MEDS: TYLENOL 650 MG PO ×2 (04:30→13:56)
[2023-09-13] MEDS: SYNTHROID 112 MCG PO (04:32)
[2023-09-13 06:00] VITALS: BMI 37.5
[2023-09-13 07:00] VITALS: BP 130/62
[2023-09-13 07:29] LABS: Hematocrit 33.6 % (37.0-47.0); Mean Corp Hgb Conc. 32.7 g/dL (33.0-37.0); Mean Corpuscular Hgb 30.2 pg (27.0-31.0); Mean Corpuscular Volume 92.3 fL (81.0-99.0); Mean Platelet Volume 9.8 fL (7.4-10.4); Platelet Count 251 10^3/uL (130-400); Red Blood Cell Count 3.64 10^6/uL (4.20-5.40); Red Cell Dist. Width 13.8 % (11.5-14.5); White Blood Cell Count 6.6 10^3/uL (4.8-10.8)
--- NOTE | 2023-09-13 07:47 | W.PN.HOSP.TC ---
Today's Communication/Plan
-
discharge
Assessment / Plan
Assessment / Plan
Physical Exam
General: No pallor, cyanosis, or jaundice. Obese
HEENT: Throat clear. PERRLA Normocephalic atraumatic
NECK: Supple. No JVD Carotid Bruits
RESPIRATORY: Lungs clear to auscultation. No crackles wheezes stridor. On room air stable respiratory status
CVS: S1, S2 normal. RRR. No murmur, rub or gallop.
ABDOMEN: Soft, non-tender. No distension. BS+/normal.
EXTREMITIES: No peripheral cyanosis or edema.
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 No focal deficits.
IMPRESSION:
83F obesity chronic peripheral vertigo migraine hypothyroidism hypertension Essential tremors GERD depression hx ESBL E. coli in urine asthma recently evaluated at this facility earlier last month for vertigo and discharged to SNF rehab, brought in
by daughter due to concerns progressive exertional dyspnea shortness of breath urinary frequency poor oral intake for the past few days. Daughter reports that patient was recently discharged from [facility] facility rehab a week ago.
Developed acute shortness of breath this morning not relieved with home inhalers. Treated in ED with nebulizer treatment and steroids with subsequent improvement in symptoms. Vital signs stable on room air afebrile nonlabored respiration but
significant impairment exercise tolerance exertional dyspnea with few steps. No leukocytosis mild creatinine elevation 1.1 possible CKD 3 baseline, BNP elevated 1000. Chest x-ray notes mild cardiomegaly and small bilateral pleural effusions.
Patient and daughter deny recent weight gain, no leg edema or crackles on auscultation.
PLAN:
#Asthma Exacerbation
#Exertional Dyspnea Debilitating
#Acute worsening shortness of breath, S1Q3T3 noted on EKG
#Acute Hypoxic Respiratory Failure
received nebulizers and steroid in ED
no wheezing crackles noted on auscultation
significant impairment exercise tolerance with few steps associate shortness of breath tachypnea
Duoneb R QID switched to Xopenex R TID following development afib rvr as below, since switched to prn due to lack of wheezing shortness of breath at rest
iptratropium prn sob wheezing
cont home Breo Ellipta montelukast
hold off on further steroids for now
CT chest appreciated limited by respiratory motion artifact, no PE noted, cardiomegaly and mild CHF noted
PT/OT eval appreciated home services vs no needs
fall precautions
oxygen supplementation prn
Persistent oxygen requirement 2-3L throughout stay unclear etiology, eventually weaned off stable respiratory status room air
pulm eval appreciated
speech eval appreciated appropriate for regular diet
#Suspected UTI
#Hx ESBL E.coli in urine
#patient reportedly on Macrobid for UTI
#Mild Cr elevation 1.1 appears baseline suspect CKD III
Reports urinary frequency but denies dysuria
Afebrile no leukocytosis
urinalysis appreciated significant pyuria, urine cx appreciated Gram neg bacilli
ID eval appreciated ertapenem IV daily x3 days
Daughter reports poor oral intake, patient afraid to drink d/t concerns urinary frequency with associate exercise intolerance.
briefly received IVF for possible dehydration discontinued d/t concerns heart failure
monitor renal function
#new onset afib rvr
#Possible Heart Failure less likely
BNP 1000 with associate renal insufficiency
daily weight I/O
ECHO appreciated 65-70%
Cardio eval appreciated
-briefly treated with IV diuretics since discontinued, no obvious signs heart failure on examination
-Eliquis 5 mg BID stroke reduction
- patient converted spontaneously NSR overnight following start of oral cardizem
Significant bradycardia noted 40s 50s, reportedly dipped to 30s overnight, bp stable, Cardizem since reduced to 120 mg daily cont with holding parameters
#HTN
cont home lisinopril and propranalol with holding parameters
#chronic peripheral vertigo
cont home meclizine and prn
#Depression
cont home Fluoxetine
#GERD
cont PPI
PT/OT initially recommended home health recommendation since updated to SNF rehab
dvt ppx Heparin
gi ppx protonix
Full COde
Medically stable for discharge SNF rehab with outpatient follow up recommendations.
discussed with patient and daughter Geeta
Total Time Preparing Discharge ___50____ minutes including examination of the patient, summary of the hospital stay, instructions for continuing care to all relevant caregivers; and preparation of discharge records, prescriptions, and referral
forms if necessary.
Anticipated Discharge: Today
Subjective/Interval History
-
Date of Service: September 13, 2023
Seen and examined at bedside in no acute distress resting comfortably in bed. Weaned off oxygen supplementation but still physically deconditioned impaired exercise tolerance.
Objective Data
-
Labs:
Laboratory Results
09/13/23
07:06
WBC 6.6
Hgb 11.0 L
Hct 33.6 L
Plt Count 251
Sodium Pending
Potassium Pending
Chloride Pending
Carbon Dioxide Pending
BUN Pending
Creatinine Pending
Glucose Pending
Calcium Pending
Vital Signs:
Vital Signs
Temp Pulse Resp BP Pulse Ox
97.7 F 57 18 146/62 96
09/13/23 03:51 09/13/23 03:51 09/13/23 03:51 09/13/23 03:51 09/13/23 03:51
I&O
09/12/23 09/13/23 09/14/23
06:59 06:59 06:59
Intake Total 1060 / 1060 1060 / 1060
Balance 1060 / 1060 1060 / 1060
[2023-09-13 07:56] LABS: Blood Urea Nitrogen 32 mg/dl (7-17); Calcium 9.4 mg/dl (8.4-10.2); Carbon Dioxide 26 mmol/L (22-30); Chloride 106 mmol/L (98-107); Estimated Creatinine Clearance 53 ml/min; Glucose 97 mg/dl (70-99); Magnesium 1.9 mg/dl (1.6-2.3); Phosphorus 3.9 mg/dl (2.5-4.5); Potassium 4.6 mmol/L (3.5-5.1); Sodium 140 mmol/L (135-145); eGFR 55.55
[2023-09-13] MEDS: SYMBICORT 80/4.5 MCG INHALER 2 PUFF INH (08:35)
[2023-09-13] MEDS: PROTONIX 40 MG PO (08:38)
[2023-09-13] MEDS: PROZAC 60 MG PO (08:38)
[2023-09-13] MEDS: ANTIVERT 12.5 MG PO ×2 (08:38→13:56)
[2023-09-13] MEDS: ELIQUIS 5 MG PO (08:38)
[2023-09-13] MEDS: INDERAL 20 MG PO (08:39)
[2023-09-13] MEDS: CARDIZEM CD 120 MG PO (08:39)
[2023-09-13] MEDS: ZESTRIL 10 MG PO (08:39)
[2023-09-13 11:00] VITALS: BP 132/67
[2023-09-13 11:01] VITALS: BP 150/71; O2SAT 97
--- NOTE | 2023-09-13 11:25 | CM ---
Addendum entered by Matilda Cunningham 09/13/23 12:07:
IMM reviewed and signed.
Patients daughter Geeta will be here today at 2 to transport back to .
Original Note:
Spoke with Tati from , they will accept patient back today, no need to send PT notes.
Scripts for PT/OT/SN on the front of patients chart.
Daughter will transport.
Report# [phone], ask for nurse
--- NOTE | 2023-09-13 11:48 | W.DCSUMMARY ---
Discharge Summary
Discharge Data
Date of Admission: 09/09/23
Date of Discharge: 09/13/23
-
Pending Results: No
Hospital Course
83F obesity chronic peripheral vertigo migraine hypothyroidism hypertension Essential tremors GERD depression hx ESBL E. coli in urine asthma recently evaluated at this facility earlier last month for vertigo and discharged to SNF rehab, brought in
by daughter due to concerns progressive exertional dyspnea shortness of breath urinary frequency poor oral intake for the past few days. Daughter reports that patient was [facility].
Developed acute shortness of breath in morning not relieved with home inhalers. Treated in ED with nebulizer treatment and steroids with subsequent improvement in symptoms. Vital signs stable on room air afebrile nonlabored respiration but
significant impairment exercise tolerance exertional dyspnea with few steps. No leukocytosis mild creatinine elevation 1.1 possible CKD 3 baseline, BNP elevated 1000. Chest x-ray noted mild cardiomegaly and small bilateral pleural effusions.
Patient and daughter deny recent weight gain, no leg edema or crackles on auscultation. Asthma Exacerbation, Exertional Dyspnea Debilitating, Acute worsening shortness of breath, S1Q3T3 noted on EKG, Acute Hypoxic Respiratory Failure, Duoneb R QID
switched to Xopenex R TID following development afib rvr soon following admission, since switched to prn due to lack of wheezing shortness of breath at rest. ipratropium prn sob wheezing, home Breo Ellipta montelukast were continued. CT chest
evaluation limited by respiratory motion artifact but no PE noted, cardiomegaly and mild CHF noted.
Persistent oxygen requirement 2-3L throughout stay unclear etiology, eventually weaned off stable respiratory status room air. Pulm eval appreciated, outpt follow up recommended. Suspected UTI, Hx ESBL E.coli in urine, patient reportedly on
Macrobid for UTI. Mild Cr elevation 1.1 appeared baseline suspected CKD III. Reported urinary frequency but denied dysuria, afebrile no leukocytosis. Urinalysis appreciated significant pyuria, urine cx appreciated Klebsiella pna. ID eval and
patient was treated with ertapenem IV daily x3 days. New onset afib rvr, BNP 1000 with associate renal insufficiency, possible Heart Failure less likely. ECHO appreciated EF 65-70%
Cardio evaluated and briefly treated with IV diuretics since discontinued, no obvious signs heart failure on examination. Eliquis 5 mg BID started for stroke risk reduction. Patient converted spontaneously NSR overnight following start of oral
cardizem. Significant bradycardia was noted 40s 50s, reportedly dipped to 30s overnight, bp stable, Cardizem since reduced to 120 mg daily. Medically stable patient was recommended for SNF rehab on discharge. Case was discussed with patient's
assisted living facility [facility] who accepted her back with plans for home PT/OT. Patient was subsequently discharged with outpatient follow up recommendations.
Discharge Plan
-
Patient Disposition: Intermediate/SNF
Discharge Diagnosis/Procedures: Acute Hypoxic Insufficiency unclear etiology since resolved
Possible Asthma Exacerbation since resolved
Urinary Tract Infection
Chronic Kidney Disease Stage III
New Onset Atrial Fibrillation with Rapid Ventricular Rate Resolved
Hypertension
chronic peripheral vertigo
Depression
GERD
Possible Heart Failure with Preserved Ejection Fraction
Condition: Fair
Diet: Low Cholesterol, 2 Gram Sodium and Restrict fluids to 48 oz
Activity: With assistance, As tolerated and With Walker
Driving Restrictions: No driving
Bathing Restrictions: None
Blood Work: Please repeat CBC and BMP with primary care provider in 1 week of discharge.
Others Tests: Please follow up with primary care provider or inking machine tender for outpatient repeat Chest X-ray, video swallow study, and pulmonary function tests in 1 month of discharge.
Other Services: VN, PT and OT
Activity Restrictions/Additional Instructions:
Please follow up with primary care provider in 1 week of discharge, keep your appointment with cardiology and follow up with pulmonology in 1 month of discharge.
Cardizem has been started to treat atrial fibrillation (maintain rate control and prevent/limit recurrence of atrial fibrillation).
Eliquis has been prescribed to reduce risk of stroke in association with atrial fibrillation.
Steroids have been completed for asthma exacerbation. No further steroids required at this time.
Please take medications as prescribed/recommended and follow up with primary care provider and/or other healthcare provider involved in your care for refills and/or further adjustment to your medication regimen as necessary.
Instructions: Atrial Fibrillation (DC)
Referrals:
Lizzette Ruiz CRNP [Specified Professional Personl] - 09/28/23 1:40 pm
Trice Rey, DO [Active] - in one month
Stacey Early CRNP [Family Provider] - in one week
Prescriptions:
New
diltiazem HCl 120 mg Capsule,Extended Release 24hr
120 mg PO DAILY 30 Days Qty: 30 0RF
Eliquis 5 mg Tablet
5 mg PO BID 30 Days Qty: 60 0RF
Continued
meclizine 12.5 mg Tablet
12.5 mg PO DAILY
omeprazole 40 mg Capsule,Delayed Release(Dr/Ec)
40 mg PO DAILY@0600
acetaminophen 500 mg Tablet
500 mg PO DAILY@1999
montelukast 10 mg Tablet
10 mg PO DAILY
albuterol sulfate 90 mcg/actuation Hfa Aerosol Inhaler
2 puff INHALATION R DAILYPRN PRN (Reason: shortness of breath)
levothyroxine 112 mcg Tablet
112 mcg PO DAILY@0600
magnesium glycinate 100 mg magnesium Capsule
100 mg PO DAILY
acetaminophen [Tylenol] 325 mg Tablet
650 mg PO Q4H MDD 3000 mg PRN (Reason: mild pain/fever)
meclizine 12.5 mg Tablet
12.5 mg PO Q8HPRN PRN (Reason: dizziness)
lisinopril 10 mg Tablet
10 mg PO BID
propranolol 20 mg Tablet
20 mg PO BID@0800,1700
Patient Comments:
09/09/2023, hold if SBP<100 or HR<60.
fluoxetine 20 mg Capsule
60 mg PO DAILY
fluticasone furoate-vilanterol [Breo Ellipta] 100-25 mcg/dose Blister With Device
1 inh INHALATION R DAILY
Discharge Orders:
Discharge Patient (As Directed); Ordered 09/13/23
Ordered By: Tiffany Turner
Discharge Date and Time
Discharge Date/Time: 09/13/23 15:22
Print Language: SWEDISH
--- NOTE | 2023-09-13 11:52 | PTOTSP ---
SPEECH THERAPY SWALLOW EVALUATION:
Patient exhibits grossly functional oropharyngeal swallow at this time. No signs or symptoms of aspiration and/or dysphagia were observed at bedside. Per Dr. Oates's note, 'suspected pneumonic infiltrates on adm Chest CT.' WBC WNL. Patient without
any significant pre-disposing dysphagia risk factors. Denies dysphagia symptoms. Given concerning Chest CT, unable to exclude aspiration entirely at bedside at this time. However, patient appears safe to continue oral diet of Regular textures, thin
liquids. Could consider Videofluoroscopic Swallow Study to further assess swallow physiology, which would be appropriate as an outpatient at MD discretion given patient appears stable at this time. Educated patient on aspiration precautions
including: Not eating/drinking when SOB, small bites/sips, slow rate of intake, Upright positioning. Patient verbally reported she understood all recommendations. Medications whole with liquid as tolerated. Speech therapy to follow, monitor CXR and
labs, assess diet tolerance and modify as appropriate, and determine indication for VFSS if indicated.
RECOMMEND:
1) Regular textures, thin liquids
2) Could consider Videofluoroscopic Swallow Study
3) Aspiration precautions including: Not eating/drinking when SOB, small bites/sips, slow rate of intake, Upright positioning
4) Medications whole with liquid as tolerated
--- NOTE | 2023-09-13 13:40 | W.PN.ID1 ---
Date of Service
Date of Service: September 13, 2023
Today's Communication
No evidence of pyelonephritis
completed course of ertapenem
Stable for dc from ID perspective
Assessment / Plan
Recurrent UTI
Hx ESBL E. coli in urine
Shortness of breath
Asthma
Chronic headaches
Hx UTI's
Obesity
Hypothyroidism
HTN
GERD
Depression
Recommendations:
No evidence of pyelonephritis
completed course of ertapenem
Stable for dc from ID perspective
Chief Complaint
-: UTI
Subjective / Review of Systems
afebrile
bp stable
without leukocytosis
cr stable
dispo planning
Vital Signs / Physical Exam
Vital Signs
Vital Signs
Temp Pulse Resp BP Pulse Ox
98.0 F 57 16 132/67 97
09/13/23 07:00 09/13/23 11:00 09/13/23 11:00 09/13/23 11:00 09/13/23 11:00
Physical Exam
Constitutional: No Acute Distress
Cardiovascular: Regular Rate and S1/S2; Negative Murmur or Rub
Pulmonary: Symmetric and Non Labored
Gastrointestinal: Soft, Non Tender, Non Distended and Normal Bowel Sounds
Genito-Urinary: Negative Suprapubic Tenderness or CVA Tenderness
Skin: Warm and Dry; Negative Rash or Jaundice
Objective Data
Lab Data
Lab Results
09/13/23 07:06
09/13/23 07:06
Estimated Creat Clear 53 ml/min 09/13/23 07:06
Total Bilirubin 0.4 mg/dl (0.2-1.3) 09/09/23 07:31
AST 17 U/L (14-36) 09/09/23 07:31
ALT 11 U/L (0-35) 09/09/23 07:31
Alkaline Phosphatase 65 U/L (38-126) 09/09/23 07:31
Most recent labs reviewed.
Micro Results:
09/09/23 13:18 Urine Culture - Final
Urine Klebsiella pneumoniae
Imaging:
09/09/2023 CT chest (PE study): Limited study secondary to respiratory motion artifact. No central or segmental pulmonary embolus. Cardiomegaly and mild CHF, with small bilateral pleural effusions. There is trace pericardial effusion noted.
Please see full dictation for additional detail.
--- NOTE | 2023-09-13 14:17 | W.PN.PUL3 ---
Today's Communication / Plan
-
s/p course of ABx
Resume Breo upon discharge
Patient being discharged to skilled rehab today. We will arrange for outpatient follow-up with our office with full PFTs.
Pulmonary service will now sign off. Please reconsult if there are any additional questions/concerns, or if patient's respiratory status deteriorates.
Assessment
-
Assessment:
Mrs Ara Mcmahon is an 83/W adm 09-08 with progressive ALEJANDRO for few d [employer] latia on DOA. H/o asthma on breo and alb HFA/ns with reported good compliance. Upon adm, noted new onset PAF, started apixaban, CHF ruled out, furosemide discontinued. Pulm
consulted 09-11
Impression:
Acute hypoxemia
Asthma exacerbation:
Progressively improving
Bilateral pleural effusions with acute decompensated heart failure/acute HFpEF
Patchy R sided infiltrates
New onset pA-Fib
Recurrent UTI: started nitrofurantoin 3 d [employer]
Conditions [employer]:
Asthma, on breo ellipta, alb HFA/ns, montelukast
Chronic peripheral vertigo
Migraine
Hypothyroidism
HTN
GERD
Depression
ESBL E coli UTI June 2023
Obesity
Nonsmoker
Plan:
Was on new onset O2 this adm
O2 at 2L earlier yesterday
O2 weaned off at noon yesterday, POx 94-97% at rest --> still on room air today and saturating 97%
Chest CTA on adm: no PE, mild to moderate bilateral dependent pleural effusions, few R sided patchy infiltrates
Levalbuterol nebs prn only
I see no need to start ATC levalb at this juncture
Continue symbicort
Return to fluticasone/vilanterol (Breo) upon d/c
Not currently on systemic CS, I see no need to start rx given progressive improvement
Outpatient ischemic evaluation per cardiology
Not on chronic CS
Kleb pn UTI
On ertapenem since 09-09 by ID
Suspected pneumonic infiltrates on adm chest CT
Ertapenem should cover
No need to recheck CXR at this junctuere
Speech evaluation ordered 09-11 to rule asp component
New PAFib
Started apixaban, continue
TTE 09-08: LVEF 65-70%, normal RV
Rate control with goal HR<110
Replete K>4, Mg>2
Outpatient follow up with cardiology - appt already scheduled fro 09/28/2023 at 1:40PM
Recurrent E coli UTI
ID following, completed 4-day course of ertapenem
Patient being discharged to skilled rehab today. We will arrange for outpatient follow-up with our office.
Pulmonary service will now sign off. Thank you for allowing us to be involved in the care of this patient. Please reconsult if there are any additional questions/concerns, or if patient's respiratory status deteriorates.
Total time spent today was 25 minutes for this encounter. Time includes reviewing laboratory test/imaging results, reviewing pertinent medical records, obtaining and reviewing medical history, performing an appropriate exam, ordering medications,
tests and procedures. Time also includes documentation of this encounter, coordinating patient care and communicating with other healthcare professionals. Total time does not include separately billed tests performed on this date of service.
Subjective Data
-
Date of Service:
Date of Service: September 13, 2023
Chief Complaint: Pulmonary Follow Up
Subjective:
Patient seen this morning. Shortness of breath improved. Awaiting discharge to skilled rehab today. No chest pain, headache, abdominal pain, fevers or chills reported.
Review of Systems
General: Other (Negative unless mentioned above)
Objective Data
Data Reviewed
Vital Signs / I&O / Oxygen:
Vital Signs
Temp Pulse Resp BP Pulse Ox
98.0 F 57 16 132/67 97
09/13/23 07:00 09/13/23 11:00 09/13/23 11:00 09/13/23 11:00 09/13/23 11:00
Intake and Output
09/12/23 09/13/23 09/14/23
06:59 06:59 06:59
Intake Total 1060 / 1060 1060 / 1060
Balance 1060 / 1060 1060 / 1060
SaO2 97
Nasal Cannula flow liters per 95
minute
Physical Exam
General: Respiratory Distress (Negative) and Comfortable
HEENT: Normocephalic and Anicteric
Cardiovascular: Peripheral Edema (Negative) and Other (normal rate)
Respiratory: Wheeze (Negative), Crackles (Bilateral), Rhonchi (Negative), Non-Labored Respirations and Accessory Resp Muscle Use (Negative)
GI: Soft, Non Distended and Non Tender
Neurology: Awake and Alert
Skin: Warm, Dry and Cyanosis (Negative)
Labs/Micro/Reports
Lab Data
09/13/23 07:06
09/13/23 07:06
Microbiology
09/09/23 13:18 Urine Urine Culture - Final
Klebsiella pneumoniae
== END 2023-09-13 15:22 | DRG 202 ==
LOC: 4 WEST ACU 13:11
PROVIDERS: ADMITTING PHYSICIAN Internal Medicine; CONSULT PHYSICIAN Internal Medicine Cardiovascular Disease; CONSULT PHYSICIAN Internal Medicine Infectious Disease; CONSULT PHYSICIAN Internal Medicine Pulmonary Disease; EMERGENCY PHYSICIAN Emergency Medicine; FAMILY PHYSICIAN Nurse Practitioner Family
DX: J45.901 Unspecified asthma with (acute) exacerbation (principal); I13.0 Hypertensive heart and chronic kidney disease with heart failure and stage 1 through stage 4 chronic kidney disease, or unspecified chronic kidney disease; N39.0 Urinary tract infection, site not specified; I50.30 Unspecified diastolic (congestive) heart failure; R09.02 Hypoxemia; R06.89 Other abnormalities of breathing; G43.909 Migraine, unspecified, not intractable, without status migrainosus; E03.9 Hypothyroidism, unspecified; E66.9 Obesity, unspecified; I48.0 Paroxysmal atrial fibrillation; G25.0 Essential tremor; H81.399 Other peripheral vertigo, unspecified ear; B96.1 Klebsiella pneumoniae [K. pneumoniae] as the cause of diseases classified elsewhere; N18.30 Chronic kidney disease, stage 3 unspecified; K21.9 Gastro-esophageal reflux disease without esophagitis; F32.A Depression, unspecified; Z79.890 Hormone replacement therapy; Z79.51 Long term (current) use of inhaled steroids; Z86.61 Personal history of infections of the central nervous system; Z87.440 Personal history of urinary (tract) infections; Z68.37 Body mass index [BMI] 37.0-37.9, adult
CPT/HCPCS: 71046; 71275; 80048; 80053; 81003; 81015; 83735; 83880; 84100; 84443; 84484; 85025; 85027; 87077; 87086; 87186; 92610; 93005; 93306; 94640; 96374; 97116; 97162; 97166; 99285; J1335; Q9950; Q9967

== ENCOUNTER 2023-10-01 17:16 | Inpatient (IN) | payer OTHER, SELFPAY ==
[2023-10-01] VITALS (11 sets, daily range): BP systolic 120–146; BP diastolic 56–88; BMI 36.1; BMI 35.8
--- NOTE | 2023-10-01 11:30 | ED.GENMED ---
History of Present Illness
General
Chief Complaint: Breathing Problem
Time Seen by Provider: 10/01/23 11:29
Travel History
Have you had any contact with someone who has COVID-19?: No
Do you have any symptoms of coronavirus? Fever > 100 degrees, chills, cough, shortness of breath, sore throat, loss of taste or smell, muscle aches, or headache?: No
History of Present Illness
History of Present Illness:
HPI: Patient presents by ambulance from [facility] due to shortness of breath. The patient states she has a history of asthma/COPD. She states she has some swelling to the lower extremities but this is actually less than it was last admission and
she has been losing weight. She has no chest pain.
EXAM:
GENERAL: Mild respiratory distress, room air sat 90% currently on nasal cannula
HEENT: Moist oral mucosa
CARDIOVASCULAR: No murmurs, normal heart rate, irregular rhythm, No chest wall tenderness
PULMONARY: No respiratory distress, breath sounds are equally decreased with scant wheeze
ABDOMEN: Soft with no peritoneal signs, no tenderness
NEUROLOGIC: Excellent strength all extremities, no coordination deficits
PSYCHIATRIC: Appropriate mental status, normal insight and judgement
EXTREMITIES: Nontender, 1+ bilateral edema, moves all extremities equally
SKIN: No rash, no lesions
TIME OF INITIAL ENCOUNTER: 11:35 AM
NUMBER AND COMPLEXITY OF PROBLEMS ADDRESSED AT THE ENCOUNTER
� Chronic conditions affecting care: The patient was admitted with bronchitis/asthma
� Acute Exacerbation and/or Progression of Chronic Illness: This is an acute but recurring problem
� Differential Diagnosis includes: Bronchitis, asthma, emphysema, CHF, dysrhythmia
AMOUNT AND/OR COMPLEXITY OF DATA TO BE REVIEWED AND ANALYZED
� I performed an independent evaluation of and my interpretation is:
EKG: A-fib 99, nonspecific ST abnormality
CT:
X-rays: Chest x-ray ago that shows some edema but decreased from prior
Laboratory Studies: White count 8.7, hemoglobin 12.3, BNP today is now 5000
Other:
� Review of other/old records: Bronchitis here last month, she has a history of asthma on Breo and also had new onset A-fib started on Eliquis and CHF felt to be ruled out�BNP at that time was 1000
� Clinical information was obtained by an independent historian: I reviewed notes from
� Prescriptions/Medications Considered but not given:
� Further testing considered but not performed:
RISK OF COMPLICATIONS AND/OR MORBIDITY OR MORTALITY OF PATIENT MANAGEMENT
� Social determinants of health affecting care: Currently staying at [facility]
� Discussion with other providers: Discussed case with Dr. Phoenix Yanez for admission.
� Escalation of care including admission/observation vs risk of discharge considered: The patient's room air sat is about 90%. She is given nebs and steroids. She is in A-fib. BNP is much higher today than prior but recent
echo was unremarkable. Given the hypoxia, recommend she stay in the hospital for further management. I question if there is a component of heart failure given the significant change in BNP.
Past History
Past History
ED Past Medical History: Asthma and Other (Chronic daily headache, meningitis age 27)
Social History
Tobacco: Non-smoker
Alcohol: None
Drug: None
Living: assisted living
Employment: Retired
Family History
Family History: Other (Reviewed and noncontributory)
Phy Exam
Physical Exam
Physical Exam:
See HPI
Scores
Heart Failure Risk
Heart Failure Risk Score: Not Applicable
Course
Orders/Labs/Results
Orders:
Orders
10/01/23 11:25
Electrocardiogram (*1) Urgent
Reason for Study: Shortness of Breath
10/01/23 11:26
EKG- Treatment ONCE
10/01/23 11:29
Complete Blood Count/With Diff Urgent
Comprehensive Metabolic Panel Urgent
NT-proBNP Urgent
10/01/23 11:48
CR Chest Portable - 1 View Urgent
Comment:
Reason For Exam: sob
Reason Study Needs to be Portable: Patient Unstable
10/01/23 11:51
Ipratropium/Albuterol Sulfate [Duoneb] 3 ml INH R NOW ONE
10/01/23 11:52
Ipratropium/Albuterol Sulfate [Duoneb] 3 ml INH R NOW STA
MethylPREDNISolone PF [Solu-Medrol Pf] 125 mg IV NOW STA
Abnormal Lab Results
10/01/23
11:29
RBC 4.10 L 10^6/uL
(4.20-5.40)
MCHC 32.9 L g/dL
(33.0-37.0)
Absolute Neuts (auto) 7.1 H 10^3/uL
(1.4-6.5)
Absolute Lymphs (auto) 0.8 L 10^3/uL
(1.2-3.4)
Absolute Monos (auto) 0.7 H 10^3/uL
(0.1-0.6)
Neutrophils % 82.6 H %
(42.2-75.2)
Lymphocytes % 9.2 L %
(20.5-51.1)
BUN 21 H mg/dl
(7-17)
Glucose 117 H mg/dl
(70-99)
10/01/23 11:29
10/01/23 11:29
Vital Signs
Initial and Last Documented VS:
Initial Vital Signs
BP Pulse Ox
142/86 91
10/01/23 11:18 10/01/23 11:18
Last Documented Vital Signs
Temp Pulse Resp BP Pulse Ox
99.2 F 83 34 132/88 97
10/01/23 11:19 10/01/23 12:45 10/01/23 12:45 10/01/23 12:00 10/01/23 12:45
*Critical Care Note
Total Time (30-74mins, 75-104mins- exclusive of procedures): Not Applicable
ED Attending Note
-
Portions of this chart may have been created with voice recognition software.� Occasional wrong word or��sound alike� substitutions may have occurred due to the inherent limitations of voice recognition software.
Discharge Plan
Departure
Prescriptions:
No Action
meclizine 12.5 mg Tablet
12.5 mg PO DAILY
omeprazole 40 mg Capsule,Delayed Release(Dr/Ec)
40 mg PO DAILY@0600
acetaminophen 500 mg Tablet
500 mg PO DAILY@1999
montelukast 10 mg Tablet
10 mg PO DAILY
albuterol sulfate 90 mcg/actuation Hfa Aerosol Inhaler
2 puff INHALATION R DAILYPRN PRN (Reason: shortness of breath)
levothyroxine 112 mcg Tablet
112 mcg PO DAILY@0600
magnesium glycinate 100 mg magnesium Capsule
100 mg PO DAILY
acetaminophen [Tylenol] 325 mg Tablet
650 mg PO Q4H MDD 3000 mg PRN (Reason: mild pain/fever)
meclizine 12.5 mg Tablet
12.5 mg PO Q8HPRN PRN (Reason: dizziness)
lisinopril 10 mg Tablet
10 mg PO BID
propranolol 20 mg Tablet
20 mg PO BID@0800,1700
Patient Comments:
09/09/2023, hold if SBP<100 or HR<60.
fluoxetine 20 mg Capsule
60 mg PO DAILY
fluticasone furoate-vilanterol [Breo Ellipta] 100-25 mcg/dose Blister With Device
1 inh INHALATION R DAILY
diltiazem HCl 120 mg Capsule,Extended Release 24hr
120 mg PO DAILY 30 Days Qty: 30 0RF
Eliquis 5 mg Tablet
5 mg PO BID 30 Days Qty: 60 0RF
Referrals:
Stacey Early CRNP [Family Provider] -
Interventions
Interventions:
*Risk Screen - Suicide Last Done: 10/01/23 11:19
*General Assessment Last Done: 10/01/23 11:19
*Neglect/Abuse Screening Last Done: 10/01/23 11:19
ED- Cardiac Assessment Last Done: 10/01/23 11:34
ED- Pulmonary Assessment Last Done: 10/01/23 11:34
Discharge Date and Time
Print Language: HEBREW
[2023-10-01 11:43] LABS: % Basophils 0.3 % (0-2); % Eosinophils 0.1 % (0-6); % Immature Granulocytes 0.3 % (0-0.5); % Lymphocytes 9.2 % (20.5-51.1); % Monocytes 7.5 % (1.7-9.3); % Neutrophils 82.6 % (42.2-75.2); Absolute Lymphocytes 0.8 10^3/uL (1.2-3.4); Absolute Monocytes 0.7 10^3/uL (0.1-0.6); Absolute Neutrophils 7.1 10^3/uL (1.4-6.5); Hematocrit 37.4 % (37.0-47.0); Hemoglobin 12.3 g/dL (12.0-16.0); Mean Corp Hgb Conc. 32.9 g/dL (33.0-37.0); Mean Corpuscular Volume 91.2 fL (81.0-99.0); Mean Platelet Volume 10.2 fL (7.4-10.4); Nucleated Red Blood Cells % 0 %; Platelet Count 201 10^3/uL (130-400); Red Cell Dist. Width 13.6 % (11.5-14.5); White Blood Cell Count 8.7 10^3/uL (4.8-10.8)
[2023-10-01 12:02] LABS: ALT (SGPT) 12 U/L (0-35); AST (SGOT) 19 U/L (14-36); Albumin 3.9 g/dl (3.5-5.0); Alkaline Phosphatase 70 U/L (38-126); Blood Urea Nitrogen 21 mg/dl (7-17); Calcium 9.3 mg/dl (8.4-10.2); Carbon Dioxide 23 mmol/L (22-30); Chloride 106 mmol/L (98-107); Estimated Creatinine Clearance 52 ml/min; Glucose 117 mg/dl (70-99); Potassium 3.9 mmol/L (3.5-5.1); Sodium 139 mmol/L (135-145); Total Bilirubin 0.8 mg/dl (0.2-1.3); Total Protein 6.7 g/dl (6.3-8.2); eGFR 55.55
[2023-10-01] MEDS: DUONEB 3 ML INH ×3 (12:08→19:25)
[2023-10-01] MEDS: SOLU-MEDROL PF 125 MG IV (12:08)
[2023-10-01 12:09] LABS: NT-proBNP 5080 pg/ml
[2023-10-01] MEDS: LASIX 40 MG IV (13:33)
[2023-10-01 17:13] LABS: Troponin I 0.039 ng/ml
--- NOTE | 2023-10-01 17:38 | HPS.HSE ---
Addendum entered and electronically signed by Marcelo Layne MD 10/01/23 22:15:
Attending Addendum-
I performed a history and physical exam of the patient and discussed his management with the resident. I reviewed the resident's note and agree with the documented findings and plan of care Patient sent to ED from for extreme SOB. Was
placed on oxygen. Has had multiple recent admissions for the same. Currently feels less SOB but fatigued. Poor historian. Full 12 point ROS reviewed and negative except as documented Exam- vitals reviewed in chart GEN-NAD heart irreg irreg lungs
scattered exp wheeze crackles at bases abd soft LE 1+ pitting edema BL Plan:
# Acute Hypoxemic Respiratory Failure
- multifactorial
- wean o2 for sats > 94%
# AE Asthma
- start IV steroids
- duonebs and budesonide nebs ATC
- cont breo as OP
- CXR reviewed no definite infiltrate with decreased vascular congestion compared to previous
# AE HFpEF
- recent echo last month EF 65-70%
- pBNP 5080 previously 1000
- start IV lasix
- daily weights / strict I and O / fluid restrict
# Paroxysmal Atrial Fibrillation/flutter
- cont Cardizem and Eliquis
- monitor on tele
# HTN-
cont lisinopril
unclear why on propranolol will DC
# Depression
- cont floxetine
# CKD 3a
- avoid nephrotoxic agents
- follow up BMP in am
# BPV-
- cont prn meclizine
# GERD
- cont omeprazole
# Hypothyroidism
- repeat TSH in am
- cont levothyroxine
DVT-p- eliquis
Dispo- eventual DC back to new
Time spent coordinating care, review of plan of care with resident, review of records, med rec, consults, notes, labs, rads, d/w nursing - 80 mins
Original Note:
Family Physician
-
Family Physician: Stacey Early
Chief Complaint
-
Shortness of breath and bilateral pedal edema
History of Present Illness
Ara Mcmahon, age 83, came to the emergency department on 10-01-23 with worsening shortness of breath at rest that began the night prior, and bilateral pedal edema which has persisted for the past month (somewhat reduced compared to her most
recent admission). She was 91% on room air on arrival in the ED, and was put on 2L O2 via nasal cannula; O2 sat returned back to normal. She was recently admitted between 09-09-23 and 09-13-23 with similar complaints, when this was presumed to be an
asthma exacerbation. Echocardiogram was unremarkable and pro-BNP was 1000 at the previous admission; pro-BNP was 5080. Troponin was mildly elevated at 0.039, with ECG showing atrial fibrillation.
Medical History
Past Medical History
Past Medical History: Reports Other (Asthma, hypertension, hypothyroidism, atrial fibrillation, chronic peripheral vertigo, migraine, essential tremors, gastroesophageal reflux disease, recurrent UTIs with history of extended-spectrum
bgia-vgbomauik-lqlpmyxw Escherichia coli, depression)
Past Surgical History: Reports Other (back surgery)
Social History
Tobacco: Non-smoker
Alcohol: None
Drug: None
Living: Alone
Employment: Retired
Family History
Family History: Not pertinent
Allergies / Home Medications
Allergies reflects when Allergies were last updated in [employer].
Home Medications with original date entered in [employer]
Allergy/Medication List:
Allergies
Allergy/AdvReac Type Severity Reaction Status Date / Time
No Known Allergies Allergy Verified 10/01/23 11:19
Home Medications
acetaminophen 500 mg tablet 500 mg PO HS 07/26/23
albuterol sulfate 90 mcg/actuation aerosol inhaler 2 puff inhalation R DAILYPRN PRN shortness of breath 07/26/23
levothyroxine 112 mcg tablet 112 mcg PO DAILY@0600 Thyroid 07/26/23
magnesium glycinate 100 mg PO DAILY Supplement 07/26/23
meclizine 12.5 mg tablet 12.5 mg PO DAILY vertigo 07/26/23
montelukast 10 mg tablet 10 mg PO HS Allergies 07/26/23
omeprazole 40 mg capsule,delayed release 40 mg PO DAILY@0600 Gastrointestinal Issue 07/26/23
acetaminophen 325 mg tablet (Tylenol) 650 mg PO Q4HPRN PRN mild pain/fever 09/09/23
fluoxetine 20 mg capsule 60 mg PO DAILY Mental Health 09/09/23
fluticasone furoate 100 mcg-vilanterol 25 mcg/dose inhalation powder (Breo Ellipta) 1 inh inhalation R DAILY Lung/Breathing Issues 09/09/23
lisinopril 10 mg tablet 10 mg PO BID Blood Pressure 09/09/23
meclizine 12.5 mg tablet 12.5 mg PO Q8HPRN PRN dizziness 09/09/23
propranolol 20 mg tablet 20 mg PO BID@0800,1700 Blood Pressure 09/09/23
apixaban 5 mg tablet (Eliquis) 5 mg PO BID 30 days #60 tabs 09/13/23
diltiazem HCl 120 mg capsule,extended release 24 hr 120 mg PO DAILY 30 days #30 caps 09/13/23
naproxen sodium 220 mg tablet 220 mg PO Q4HPRN PRN mild pain 10/01/23
Review of Systems
-
History Source: Patient
Constitutional: Reports Weight Gain; Denies Fatigue, Sleep Disturbance, Night Sweats or Chills
EENT: Reports No Symptoms
Respiratory: Reports Cough (intermittent and chronic) and Trouble Breathing
Cardiac: Denies Chest Pain, Diaphoresis, Palpitations or Syncope
Abdomen/GI: Reports No Symptoms
: Reports No Symptoms
Musculoskeletal: Reports Edema (bilateral pedal edema)
Skin: Reports No Symptoms
Neurological: Reports No Symptoms
Endocrine: Reports No Symptoms
Hematologic/Lymphatic: Reports No Symptoms
Psych: Reports No Symptoms
Physical Exam
Vital Signs
Vital Signs
Temp Pulse Resp BP Pulse Ox
99.2 F 97 31 131/79 93
10/01/23 11:19 10/01/23 17:00 10/01/23 17:00 10/01/23 16:39 10/01/23 17:00
Physical Exam
General: Comfortable, Conversant and Respiratory Distress (very mild at initial presentation)
HEENT: NormoCephalic, Anicteric, Moist mucous membranes and Atraumatic
Respiratory: Wheezes (mild) and Crackles (mild at bilateral bases)
Cardiac: S1/S2 and Regular Rhythm
GI: Soft, Non Tender and Normal Bowel Sounds
Genito-urinary: No costovertebral tender
Musculoskeletal: No Clubbing, No Cyanosis, Edema, Left Lower Extremity (+1) and Edema, Right Lower Extremity (+1)
Skin: Warm, Dry and IV/Catheter Site
Neuro: Awake, Alert, Oriented and Nonfocal/grossly intact
Psych: Calm
Laboratory Results
-
10/01/23 11:29
10/01/23 11:29
Laboratory Results
Total Bilirubin 0.8 mg/dl (0.2-1.3) 10/01/23 11:29
AST 19 U/L (14-36) 10/01/23 11:29
ALT 12 U/L (0-35) 10/01/23 11:29
Alkaline Phosphatase 70 U/L (38-126) 10/01/23 11:29
Troponin I 0.039 ng/ml H* 10/01/23 16:40
Impression/Plan
-
Impression
- Suspected acute on chronic heart failure with preserved ejection fraction
- Asthma with acute exacerbation
- Atrial fibrillation
- Elevated troponin
- Essential hypertension
- Hypothyroidism
- Chronic peripheral vertigo
- Migraine
- Essential tremors
- Gastroesophageal reflux disease
- Recurrent UTIs with history of extended-spectrum hiks-kxlseqype-etfhamhm Escherichia coli
- Depression
Plan
Suspected acute on chronic heart failure with preserved ejection fraction
- pro-BNP is up from 1000 (09-09-23) to 5080 (10-01-23).
- Troponin was mildly elevated; trend to peak.
- Echocardiogram from her previous admission was mostly unremarkable.
- She developed new atrial fibrillation at that visit.
- Her presentation was similar but she noted improved with nebs and furosemide.
- The latter was discontinued since her symptoms were attributed to exacerbation of asthma.
- Her weight went down to 100 kg at the previous visit; 104 today.
- Fluid restriction to 60 oz per day, follow daily weights and I&Os.
- IV furosemide 40 mg once a day for now.
Asthma with acute exacerbation
- O2 91% on room air on arrival.
- Tachypnea on presentation; respiratory rate in the 30s.
- Took off the O2 after she has had nebs and IV steroids; holding within normal range.
- Continue nebs, IV methylprednisolone, budesonide inhaler, and O2 if necessary.
Atrial fibrillation
- Heart rate ranging between 80-95.
- Her diltiazem was recently bumped up to 180, but has not gotten the new dosage.
- For now, will continue on the dose she takes; 120 mg ER once a day.
- On apixaban 5 mg twice a day.
Elevated troponin
- 0.039 at 1640 on 10-01-23.
- Trend to peak.
Essential hypertension
- Normotensive; continue lisinopril.
Hypothyroidism
- Re-check TSH with reflex to T4.
- Continue levothyroxine.
Chronic peripheral vertigo
- Hold meclizine for now.
Migraine
- Acetaminophen as needed.
- Can give a rescue medication if needed.
Essential tremors
- Hold propranolol for now.
Gastroesophageal reflux disease
- Continue omeprazole.
Recurrent UTIs with history of extended-spectrum vfib-cuncjfjyb-pmlbntza Escherichia coli
- Afebrile, WBC count normal; will monitor.
- Check UA with reflex to UC.
Depression
- Continue fluoxetine.
Diet
- Cholesterol lowering.
DVT prophylaxis
- Apixaban.
Code status
- DNR-DNI
[2023-10-01] MEDS: SYMBICORT 80/4.5 MCG INHALER 2 PUFF INH (19:25)
[2023-10-01] MEDS: PULMICORT 0.25 MG INH (19:34)
[2023-10-01] MEDS: ELIQUIS 5 MG PO (19:57)
[2023-10-01] MEDS: ZESTRIL 10 MG PO (19:58)
[2023-10-01 20:26] LABS: Troponin I 0.025 ng/ml
[2023-10-01 20:40] LABS: Urine Albumin Trace (Neg - Trace); Urine Bilirubin Negative (Negative); Urine Character Very Cloudy (Clear); Urine Color Yellow; Urine Glucose Negative (Negative); Urine Ketone Negative (Negative); Urine Leukocyte Negative (Negative); Urine Nitrite Negative (Negative); Urine Occult Blood 4+ (Negative); Urine Urobilinogen Negative (Neg - 1+)
[2023-10-01 21:05] LABS: Urine Bacteria Moderate (Negative); Urine Red Blood Cell 0-2 /HPF (0-2); Urine White Cell 80-90 /HPF (0-5)
[2023-10-01] MEDS: SINGULAIR 10 MG PO (23:04)
[2023-10-01] MEDS: SOLU-MEDROL PF 40 MG IV (23:04)
[2023-10-02] MEDS: DUONEB 3 ML INH ×3 (01:12→12:31)
[2023-10-02 01:47] LABS: Hematocrit 38.5 % (37.0-47.0); Hemoglobin 13.2 g/dL (12.0-16.0); Mean Corp Hgb Conc. 34.3 g/dL (33.0-37.0); Mean Corpuscular Hgb 30.4 pg (27.0-31.0); Mean Corpuscular Volume 88.7 fL (81.0-99.0); Platelet Count 254 10^3/uL (130-400); Red Blood Cell Count 4.34 10^6/uL (4.20-5.40); Red Cell Dist. Width 13.3 % (11.5-14.5); White Blood Cell Count 7.5 10^3/uL (4.8-10.8)
[2023-10-02 02:14] LABS: Blood Urea Nitrogen 27 mg/dl (7-17); Calcium 9.7 mg/dl (8.4-10.2); Carbon Dioxide 21 mmol/L (22-30); Chloride 104 mmol/L (98-107); Estimated Creatinine Clearance 52 ml/min; Glucose 149 mg/dl (70-99); Potassium 3.5 mmol/L (3.5-5.1); Sodium 141 mmol/L (135-145); eGFR 55.55
[2023-10-02 02:18] LABS: Troponin I 0.034 ng/ml
[2023-10-02 02:37] VITALS: BP 120/68
[2023-10-02 02:42] LABS: TSH Reflex To Free T4 0.09 uIU/ml (0.47-4.68)
[2023-10-02 03:37] LABS: Free T4 2.01 ng/dl (0.78-2.19)
[2023-10-02] MEDS: SYNTHROID 112 MCG PO (05:51)
[2023-10-02 06:00] VITALS: BMI 35.6
[2023-10-02] MEDS: PULMICORT 0.25 MG INH (07:12)
[2023-10-02 07:42] LABS: Troponin I 0.027 ng/ml
[2023-10-02 07:47] VITALS: BP 144/74
[2023-10-02] MEDS: PROZAC 60 MG PO (08:32)
[2023-10-02] MEDS: CARDIZEM CD 120 MG PO (08:33)
[2023-10-02] MEDS: PROTONIX 40 MG PO (08:33)
[2023-10-02] MEDS: ZESTRIL 10 MG PO ×2 (08:34→19:42)
[2023-10-02] MEDS: ELIQUIS 5 MG PO ×2 (08:34→19:42)
[2023-10-02] MEDS: LASIX 40 MG IV (08:34)
[2023-10-02] MEDS: ROCEPHIN 1000 MG IV (09:43)
[2023-10-02] MEDS: STERILE WATER FOR INJECTION 10 ML IV (09:44)
--- NOTE | 2023-10-02 10:49 | CM ---
CM met with pt at bedside.
Pt resides at [facility]. Reports living there since July.
Prior to admission pt is independent with ambulation using RW, standby assist for care/showers. Daughter comes to assist with bathing. Eats independently in dining room. [facility] administers medications.
Cm called [facility] and spoke with July who confirmed all above. ([phone])
Pt follows with a PCP Stacey Early.
Discharge dispo return to [facility] when stable.
[2023-10-02 11:00] VITALS: BP 119/83
[2023-10-02] MEDS: SOLU-MEDROL PF 40 MG IV (11:06)
[2023-10-02] MEDS: TYLENOL 650 MG PO (11:21)
--- NOTE | 2023-10-02 13:05 | W.PN.HOSP.TC ---
Today's Communication/Plan
-
see outlined plan
Assessment / Plan
Assessment / Plan
Assessment:
Acute hypoxic respiratory insufficiency
- resolved, on RA now
Acute on chronic HFpEF
- likely in setting of tachyarrhythmia (reported in rapid AFib in office per daughter)
- on IV Lasix - requires intensive monitoring of I/Os, weights, lytes
Asthma Exacerbation
- mild
- continue steroids, IVSM, reduce to daily
- prn nebs (Xopenex)
- hold Breo, Singulair
UTI
- repeat urine culture
- start Ertapenem with hx of ESBL; noted 3 day treatment last admission
Parox A. Fib with RVR
- continue Diltiazem
- monitoring off Propranolol
- continue Eliquis
Essential HTN
- - continue Propranolol, continue Diltiazem, continue ELISEO
chronic peripheral vertigo
- cont home meclizine and prn
Depression
- cont home Fluoxetine
GERD
- cont PPI
Hypothyroidism
- TSH .09, Free T4 normal
- continue LT4
CKD stage 3a
DVT ppx: SC heparin
Code: Full
Anticipated Discharge: > 48 hours
Subjective/Interval History
-
Date of Service: October 02, 2023
feels improved, less SOB
HRs marginally around 100s, higher with activity, denies cp or palps
Objective Data
-
Labs:
Laboratory Results
10/02/23
01:41
WBC 7.5
Hgb 13.2
Hct 38.5
Plt Count 254 D
Sodium 141
Potassium 3.5
Chloride 104
Carbon Dioxide 21 L
BUN 27 H
Creatinine 1.0
Glucose 149 H
Calcium 9.7
Vital Signs:
Vital Signs
Temp Pulse Resp BP Pulse Ox
98.5 F 65 16 119/83 95
10/02/23 11:00 10/02/23 11:00 10/02/23 11:00 10/02/23 11:00 10/02/23 11:00
Physical Exam
-
General: No Apparent Distress
HEENT: Normocephalic and Atraumatic
Respiratory: Negative Wheezes
Cardiac: Irregular Rhythm and Tachycardic
GI: Soft and Nontender
Neuro: AO x 3
Psych: Calm
Data Reviewed
-
Total Time Spent with Patient (in minutes): 51
Labs: Labs Reviewed by me
[2023-10-02] MEDS: INVANZ 60 MG IV (13:50)
[2023-10-02 15:04] VITALS: BP 116/72
[2023-10-02 15:37] LABS: Troponin I 0.033 ng/ml
[2023-10-02 19:37] VITALS: BP 140/89
[2023-10-02] MEDS: SINGULAIR 10 MG PO (19:42)
[2023-10-02 23:00] VITALS: BP 121/83
[2023-10-03] VITALS (8 sets, daily range): BP systolic 128–149; BP diastolic 73–94; PULSE 80–106; O2SAT 95; BMI 35.4
[2023-10-03] MEDS: SYNTHROID 112 MCG PO (05:47)
[2023-10-03 06:28] LABS: Hematocrit 35.7 % (37.0-47.0); Hemoglobin 12.1 g/dL (12.0-16.0); Mean Corp Hgb Conc. 33.9 g/dL (33.0-37.0); Mean Corpuscular Hgb 30.1 pg (27.0-31.0); Mean Corpuscular Volume 88.8 fL (81.0-99.0); Mean Platelet Volume 10.1 fL (7.4-10.4); Platelet Count 259 10^3/uL (130-400); Red Blood Cell Count 4.02 10^6/uL (4.20-5.40); Red Cell Dist. Width 13.4 % (11.5-14.5); White Blood Cell Count 12.7 10^3/uL (4.8-10.8)
[2023-10-03 06:47] LABS: Blood Urea Nitrogen 41 mg/dl (7-17); Calcium 9.4 mg/dl (8.4-10.2); Carbon Dioxide 25 mmol/L (22-30); Chloride 105 mmol/L (98-107); Estimated Creatinine Clearance 47 ml/min; Glucose 117 mg/dl (70-99); Magnesium 1.9 mg/dl (1.6-2.3); Potassium 3.8 mmol/L (3.5-5.1); Sodium 140 mmol/L (135-145); eGFR 49.55
[2023-10-03] MEDS: PROZAC 60 MG PO (07:35)
[2023-10-03] MEDS: ELIQUIS 5 MG PO ×2 (07:35→19:14)
[2023-10-03] MEDS: CARDIZEM CD 120 MG PO (07:35)
[2023-10-03] MEDS: PROTONIX 40 MG PO (07:35)
[2023-10-03] MEDS: ZESTRIL 10 MG PO ×2 (07:36→19:14)
[2023-10-03] MEDS: SOLU-MEDROL PF 40 MG IV (07:36)
[2023-10-03] MEDS: INVANZ 60 MG IV (13:35)
--- NOTE | 2023-10-03 14:46 | W.PN.HOSP.TC ---
Today's Communication/Plan
-
continue IV steroids
holding IV Lasix
monitor Tele
Assessment / Plan
Assessment / Plan
Assessment:
Acute hypoxic respiratory insufficiency
- resolved, on RA now
Acute on chronic HFpEF
- likely in setting of tachyarrhythmia (reported in rapid AFib in office per daughter)
- IV Lasix on hold; BUN rising. Admission weight was lower than previous weights from August
Asthma Exacerbation
- mild
- continue IV Solu-Medrol 40mg daily, consider weaning in 24 hours
- prn nebs (Xopenex)
- hold Breo Singulair
UTI
- recent Klebsiella UTI
- now with E. Coli UTI
- continue Ertapenem with hx of ESBL; noted 3 day treatment of Klebsiella UTI last admission
Parox A. Fib with RVR
- continue Diltiazem
- monitoring off Propranolol
- continue Eliquis
Essential HTN
- - continue Propranolol, continue Diltiazem, continue ELISEO
chronic peripheral vertigo
- cont home meclizine and prn
Depression
- cont home Fluoxetine
GERD
- cont PPI
Hypothyroidism
- TSH .09, Free T4 normal
- continue LT4
CKD stage 3a
DVT ppx: SC heparin
Code: Full
Anticipated Discharge: > 48 hours
Subjective/Interval History
-
Date of Service: October 03, 2023
reports breathing improving, now able to bring up clear sputum
no fever/chills
Objective Data
-
Labs:
Laboratory Results
10/03/23
06:13
WBC 12.7 H
Hgb 12.1
Hct 35.7 L
Plt Count 259
Sodium 140
Potassium 3.8
Chloride 105
Carbon Dioxide 25
BUN 41 H
Creatinine 1.1 H
Glucose 117 H
Calcium 9.4
Vital Signs:
Vital Signs
Temp Pulse Resp BP Pulse Ox
97.7 F 89 18 143/94 95
10/03/23 11:00 10/03/23 11:00 10/03/23 11:00 10/03/23 11:00 10/03/23 11:00
I&O
10/02/23 10/03/23 10/04/23
06:59 06:59 06:59
Intake Total 240 / 240
Balance 240 / 240
Physical Exam
-
General: No Apparent Distress
HEENT: Normocephalic and Atraumatic
Respiratory: Negative Wheezes
Cardiac: Regular Rhythm
GI: Soft
Genito-urinary: No Costovertebral Tender
Neuro: AO x 3
Psych: Calm
Data Reviewed
-
Total Time Spent with Patient (in minutes): 42
Labs: Labs Reviewed by me
[2023-10-03] MEDS: TYLENOL 650 MG PO (19:13)
[2023-10-03] MEDS: SINGULAIR 10 MG PO (19:15)
[2023-10-04 03:00] VITALS: BP 126/70
[2023-10-04] MEDS: SYNTHROID 112 MCG PO (05:51)
[2023-10-04 06:00] VITALS: BMI 35.7
[2023-10-04 06:30] LABS: Hematocrit 35.4 % (37.0-47.0); Hemoglobin 12.1 g/dL (12.0-16.0); Mean Corp Hgb Conc. 34.2 g/dL (33.0-37.0); Mean Corpuscular Hgb 30.6 pg (27.0-31.0); Mean Corpuscular Volume 89.6 fL (81.0-99.0); Mean Platelet Volume 10.3 fL (7.4-10.4); Platelet Count 256 10^3/uL (130-400); Red Blood Cell Count 3.95 10^6/uL (4.20-5.40); Red Cell Dist. Width 13.4 % (11.5-14.5); White Blood Cell Count 9.5 10^3/uL (4.8-10.8)
[2023-10-04 07:33] LABS: Blood Urea Nitrogen 46 mg/dl (7-17); Calcium 9.5 mg/dl (8.4-10.2); Carbon Dioxide 28 mmol/L (22-30); Chloride 104 mmol/L (98-107); Estimated Creatinine Clearance 52 ml/min; Glucose 106 mg/dl (70-99); Potassium 4.3 mmol/L (3.5-5.1); Sodium 140 mmol/L (135-145); eGFR 55.55
[2023-10-04 07:53] VITALS: BP 144/86
[2023-10-04] MEDS: PROTONIX 40 MG PO (07:53)
[2023-10-04] MEDS: PROZAC 60 MG PO (07:53)
[2023-10-04] MEDS: ZESTRIL 10 MG PO (07:54)
[2023-10-04] MEDS: ELIQUIS 5 MG PO (07:54)
[2023-10-04] MEDS: SOLU-MEDROL PF 40 MG IV (07:54)
[2023-10-04] MEDS: CARDIZEM CD 120 MG PO (07:54)
[2023-10-04 11:00] VITALS: BP 156/91
--- NOTE | 2023-10-04 11:35 | W.PN.HOSP.TC ---
Today's Communication/Plan
-
Discharge
Assessment / Plan
Assessment / Plan
Gen-AAOx3, NAD, obese
HEENT-NC, AT, anicteric, clear oral mm
Neck-supple
CV-reg, no M, +S1/S2
Lungs-clear B/L
Abd-soft, NT, ND
Ext-no edema
Musculoskeletal-no cyanosis, clubbing
Skin-warm and dry
Neuro-grossly non-focal
Psych-calm, cooperative
Acute hypoxic respiratory insufficiency -acute asthma exacerbation, pulmonary edema.
- resolved, on RA now
Acute on chronic HFpEF
- likely in setting of tachyarrhythmia (reported in rapid AFib in office per daughter)
-Start oral Lasix. Patient currently does not have a acute care nurse, but states her daughter is looking for one.
Asthma Exacerbation
- mild, improving
-Change steroids to prednisone.
- prn nebs (Xopenex)
- hold Breo, Singulair
UTI
- recent Klebsiella UTI
- now with E. Coli UTI, pansensitive. Will change to oral antibiotics.
Parox A. Fib with RVR
- continue Diltiazem
- monitoring off Propranolol
- continue Eliquis
Essential HTN
- - continue Propranolol, continue Diltiazem, continue ELISEO
chronic peripheral vertigo
- cont home meclizine and prn
Depression
- cont home Fluoxetine
GERD
- cont PPI
Hypothyroidism
- TSH .09, Free T4 normal
- continue LT4
CKD stage 3a
DVT ppx: SC heparin
Code: Full
Dispo -medically stable for discharge. Outpatient follow-up. Case management aware.
33 minutes spent in discharge process.
Anticipated Discharge: Today
Subjective/Interval History
-
Date of Service: October 04, 2023
Patient seen and examined. Feeling better. No complaints.
Objective Data
-
Labs:
Laboratory Results
10/04/23
05:48
WBC 9.5
Hgb 12.1
Hct 35.4 L
Plt Count 256
Sodium 140
Potassium 4.3
Chloride 104
Carbon Dioxide 28
BUN 46 H
Creatinine 1.0
Glucose 106 H
Calcium 9.5
Vital Signs:
Vital Signs
Temp Pulse Resp BP Pulse Ox
97.8 F 82 16 144/86 95
10/04/23 07:53 10/04/23 07:53 10/04/23 07:53 10/04/23 07:53 10/04/23 07:53
I&O
10/03/23 10/04/23 10/05/23
06:59 06:59 06:59
Intake Total 240 / 240 1320 / 1320
Balance 240 / 240 1320 / 1320
Review of Systems
-
History Source: Patient
All other systems: Reviewed and negative
--- NOTE | 2023-10-04 11:42 | W.DS.TRANS ---
DC Summary - [employer]
-
Discharge Instructions:
Sleep Apnea Risk Intermediate
Discharge Diagnosis/Procedures Asthma exacerbation, heart failure exacerbation,
UTI
Diet Low Fat,Low Cholesterol
Activity As tolerated
Driving Restrictions No driving
Instructions:
Stand-Alone Forms:
Changes to Home Medications: No
Discharge Medications:
DC Medications w/original date entered in [employer]
acetaminophen 500 mg tablet 500 mg PO HS Pain 07/26/23
albuterol sulfate 90 mcg/actuation aerosol inhaler 2 puff inhalation R DAILYPRN PRN shortness of breath 07/26/23
levothyroxine 112 mcg tablet 112 mcg PO DAILY@0600 Thyroid 07/26/23
magnesium glycinate 100 mg PO DAILY Supplement 07/26/23
meclizine 12.5 mg tablet 12.5 mg PO DAILY vertigo 07/26/23
montelukast 10 mg tablet 10 mg PO HS Allergies 07/26/23
omeprazole 40 mg capsule,delayed release 40 mg PO DAILY@0600 Gastrointestinal Issue 07/26/23
acetaminophen 325 mg tablet (Tylenol) 650 mg PO Q4HPRN PRN mild pain/fever 09/09/23
fluoxetine 20 mg capsule 60 mg PO DAILY Mental Health 09/09/23
fluticasone furoate 100 mcg-vilanterol 25 mcg/dose inhalation powder (Breo Ellipta) 1 inh inhalation R DAILY Lung/Breathing Issues 09/09/23
lisinopril 10 mg tablet 10 mg PO BID Blood Pressure 09/09/23
meclizine 12.5 mg tablet 12.5 mg PO Q8HPRN PRN dizziness 09/09/23
propranolol 20 mg tablet 20 mg PO BID@0800,1700 Blood Pressure 09/09/23
apixaban 5 mg tablet (Eliquis) 5 mg PO BID 30 days #60 tabs 09/13/23
diltiazem HCl 120 mg capsule,extended release 24 hr 120 mg PO DAILY 30 days #30 caps 09/13/23
furosemide 20 mg tablet 20 mg PO DAILY #30 tabs 10/04/23
prednisone 10 mg tablet 10 mg PO DIRECTED #20 tabs 10/04/23
sulfamethoxazole 800 mg-trimethoprim 160 mg tablet (Bactrim DS) 1 tab PO BID #6 tabs 10/04/23
Home Medication Changes
Pending Results: No
--- NOTE | 2023-10-04 12:15 | CM ---
Addendum entered by Radha Xie 10/04/23 13:00:
Spoke with Chelsie at - if needed staff can open apartment for pt. can also provide transport via shuttle
Informed pt and her daughter (Via phone), daughter reports she will transport mother back to . Concerned that pt/daughter would like to be educated regarding medications. Discussed with pts nurse - reports she will review medications
with pt and daughter.
Received call from Cher at [facility] - pt known to [facility] - referral made in [facility] for [facility]
Plan - Return to
R - [phone]
F - [phone]
Original Note:
Case management following for d/c planning
Spoke with Kavitha at regarding d/c needs - PT/OT recommending
Per Kavitha pt can be evaluated upon return - requesting Rx for PT/OT and skilled nsg for evaluation. Requested nurse to nurse report when being d/c'ed - [phone]
Spoke with pt regarding d//c
Pt reports her daughter can transfer her to . Daughter is out of town until tomorrow. Daughter also has monique to her apartment and clothes
CM will call - check on apartment access
Plan - Return to
R - [phone]
F - [phone]
[2023-10-04] MEDS: INVANZ 60 MG IV (13:25)
--- NOTE | 2023-10-04 14:04 | CON.CAR ---
Addendum entered and electronically signed by Jamarcus Sanabria MD 10/04/23 18:52:
I saw and examined the patient.
The SUPPORT MANAGER's note was reviewed and I agree with the note.
Comment: 83-year-old female with recent diagnosis of atrial fibrillation that appears to be persistent on Eliquis, HFpEF, asthma with recent exacerbation, recurrent UTI, hypertension and depression. Currently, she is quite upset because she is
going to be discharged home. She feels this was an inconvenience to her daughter who was already at [facility]. However, she is feeling better. She denies any palpitations chest pain or shortness of breath. She is confused about her
medications and would like a list of the medications on discharge. She does live at [facility] and they control her medications. On exam she has a right irregularly irregular rate and rhythm with a normal S1-S2, no evidence of JVP, lungs are
clear to auscultation bilaterally extremities are warm well-perfused on clubbing sinus edema. I watched her walk from the bathroom and she had a normal gait. No acute cardiac issue to discuss today. Would continue heart rate control with
diltiazem as you are on discharge. Would agree with a daily Lasix dose. I stressed to her the importance of weighing herself daily. She will call the office for a gain of 3 pounds in a day or 5 pounds in 5 days. She is not interested in any
NATALY/cardioversion at this time. She will follow-up with Dr. Blanton.
Original Note:
Consultation
Consultation Request
Date/Time Consultation Requested: 10/04/23 1:15p
Date/Time Consultation Performed: 10/04/23 1:45p
Requesting Provider: Dr. Pantoja
Performing Provider: KEYUR Braga for Dr. Sanabria
Reason for Consultation: Afib, HFpEF
Medical History
-
Chief Complaint: sob
History of Present Illness:
Mrs. Mcmahon is an 83-year-old female with hypertension, paroxysmal Afib (on Eliquis), HFpEF, recurrent UTI, GERD, depression, essential tremors, vertigo, hypothyroidism, and migraines, who presents to the ER with c/o SOB. She is admitted to the
hospitalist service for asthma exacerbation. Patient and family requested cardiology consult for medication management. She was hospitalized 09/09/23 with an asthma exacerbation and in this setting had new Afib, converted to NSR on Diltiazem and
d/c home on it. OAC with Eliquis ([id number] VASC score of 4). She also had mild HFpEF and was diuresed with Lasix then. She was seen in our office 09/28/23 for follow up and was noted to be in Afib at 97 bpm, her Diltiazem was increased to 180mg
daily, Eliquis continued. We discussed treatment options for Afib including NATALY/DCCV, but she declined. Diltiazem has been continued this admission and Afib is rate controlled, she denies any palpitations. Eliquis is also continued. She was
treated for a recurrent UTI and asthma exacerbation with prednisone and inhalers/nebs.
Past Medical History
Past Medical History: Other (as above)
Past Surgical History: Other (as above)
Social History
Tobacco: Non-Smoker
Alcohol: None
Family History
Family History: Reviewed & Not Pertinent
Allergies / Home Medications
Allergy/AdvReac Type Severity Reaction Status Date / Time
No Known Allergies Allergy Verified 10/01/23 11:19
�Medication �Instructions �Recorded �Confirmed �Type
acetaminophen 500 mg tablet 500 mg PO HS Pain 07/26/23 10/01/23 History
albuterol sulfate 90 mcg/actuation 2 puff inhalation R DAILYPRN PRN 07/26/23 10/01/23 History
aerosol inhaler shortness of breath
levothyroxine 112 mcg tablet 112 mcg PO DAILY@0600 Thyroid 07/26/23 10/01/23 History
magnesium glycinate 100 mg PO DAILY Supplement 07/26/23 10/01/23 History
meclizine 12.5 mg tablet 12.5 mg PO DAILY vertigo 07/26/23 10/01/23 History
montelukast 10 mg tablet 10 mg PO HS Allergies 07/26/23 10/01/23 History
omeprazole 40 mg capsule,delayed 40 mg PO DAILY@0600 07/26/23 10/01/23 History
release Gastrointestinal Issue
acetaminophen 325 mg tablet 650 mg PO Q4HPRN PRN mild 09/09/23 10/01/23 History
(Tylenol) pain/fever
fluoxetine 20 mg capsule 60 mg PO DAILY Mental Health 09/09/23 10/01/23 History
fluticasone furoate 100 1 inh inhalation R DAILY 09/09/23 10/01/23 History
mcg-vilanterol 25 mcg/dose Lung/Breathing Issues
inhalation powder (Breo Ellipta)
lisinopril 10 mg tablet 10 mg PO BID Blood Pressure 09/09/23 10/01/23 History
meclizine 12.5 mg tablet 12.5 mg PO Q8HPRN PRN dizziness 09/09/23 10/01/23 History
propranolol 20 mg tablet 20 mg PO BID@0800,1700 Blood 09/09/23 10/01/23 History
Pressure
apixaban 5 mg tablet (Eliquis) 5 mg PO BID 30 days #60 tabs 09/13/23 10/01/23 Rx
diltiazem HCl 120 mg 120 mg PO DAILY 30 days #30 caps 09/13/23 10/01/23 Rx
capsule,extended release 24 hr
furosemide 20 mg tablet 20 mg PO DAILY #30 tabs 10/04/23 Rx
prednisone 10 mg tablet 10 mg PO DIRECTED #20 tabs 10/04/23 Rx
sulfamethoxazole 800 1 tab PO BID #6 tabs 10/04/23 Rx
mg-trimethoprim 160 mg tablet
(Bactrim DS)
Review of Systems
-
History Source: Patient
All other systems: Negative unless noted
Physical Exam
Vital Signs
Temp Pulse Resp BP Pulse Ox
98.6 F 101 17 156/91 93
10/04/23 11:00 10/04/23 11:00 10/04/23 11:00 10/04/23 11:00 10/04/23 11:00
Lab Results
10/04/23 05:48
10/04/23 05:48
Troponin I 0.033 ng/ml 10/02/23 14:53
Och-J-Yeblbdvoutn Pept 5080 pg/ml 10/01/23 11:29
Physical Exam
General: Well Developed, Well Nourished and No Apparent Distress
HEENT: Normocephalic, Anicteric and Moist Mucous Membranes
Respiratory: Clear and Non Labored Respirations
Cardiac: S1/S2 and Irregular Rhythm
Breast: Deferred by me
GI: Soft, Non Tender and Normal Bowel Sounds
Rectal: Deferred by Provider
Genito-urinary: No Costovertebral Tender
Musculoskeletal: No Clubbing, No Cyanosis and No Edema
Skin: Warm and Dry
Neuro: AO x 3 (repeats herself frequently)
Hematologic/Lymphatic: No Lymphadenopathy
Psych: Calm
Impression / Plan
-
Afib - rate controlled on Diltiazem 120mg daily and propranolol, continue.
- continue Eliquis for OAC.
- reviewed again possible NATALY/DCCV with patient and daughter Geeta on the phone and patient is declining again.
- outpatient follow up as scheduled.
HFpEF - acute on chronic.
- normal LVEF.
- in the setting of acute asthma exacerbation, again.
- continue Lasix at discharge.
- daily weights at home, reviewed with daughter Geeta and she verbalized understanding.
- denies sob at rest.
HTN - stable on Diltiazem, Lisinopril, Propranolol.
- continue meds.
UTI - recurrent.
- ABX per primary.
Asthma exacerbation - recurrent.
- prednisone taper, inhalers, nebs.
Data Reviewed
-
EKG: Tracing Personally Visualized and interpreted
Medical Tests (Nuc Med, Echo etc): Report Reviewed by me (echo 09/09/23: LVEF 65-70%, mild MR )
Labs: Labs Reviewed by me
Old Records: Reviewed
[2023-10-04 16:04] VITALS: BP 146/79
== END 2023-10-04 19:08 | disposition home health service (06) | DRG 291 ==
LOC: 3 WEST ACU 17:16
PROVIDERS: Internal Medicine; Student in an Organized Health Care Education/Training Program; ADMITTING PHYSICIAN Family Medicine; ATTENDING PHYSICIAN Hospitalist; CONSULT PHYSICIAN Internal Medicine Cardiovascular Disease; EMERGENCY PHYSICIAN Emergency Medicine; FAMILY PHYSICIAN Nurse Practitioner Family
DX: I13.0 Hypertensive heart and chronic kidney disease with heart failure and stage 1 through stage 4 chronic kidney disease, or unspecified chronic kidney disease (principal); I50.33 Acute on chronic diastolic (congestive) heart failure; I48.92 Unspecified atrial flutter; J44.1 Chronic obstructive pulmonary disease with (acute) exacerbation; J45.901 Unspecified asthma with (acute) exacerbation; N39.0 Urinary tract infection, site not specified; I48.0 Paroxysmal atrial fibrillation; N18.31 Chronic kidney disease, stage 3a; F32.A Depression, unspecified; K21.9 Gastro-esophageal reflux disease without esophagitis; E03.9 Hypothyroidism, unspecified; Z87.440 Personal history of urinary (tract) infections; B96.20 Unspecified Escherichia coli [E. coli] as the cause of diseases classified elsewhere
CPT/HCPCS: 71045; 80048; 80053; 81003; 81015; 83735; 83880; 84439; 84443; 84484; 85025; 85027; 87071; 87086; 87186; 93005; 94640; 96374; 96375; 97161; 97166; 99285; J1335

== ENCOUNTER 2023-12-29 17:34 | Emergency (ER) | payer OTHER, SELFPAY ==
[2023-12-29 17:59] VITALS: BP 120/88
[2023-12-29 18:22] LABS: % Basophils 0.7 % (0-2); % Eosinophils 2.5 % (0-6); % Immature Granulocytes 0.9 % (0-0.5); % Lymphocytes 22.3 % (20.5-51.1); % Monocytes 8.7 % (1.7-9.3); % Neutrophils 64.9 % (42.2-75.2); Absolute Basophils 0.1 10^3/uL (0-0.2); Absolute Eosinophils 0.3 10^3/uL (0-0.7); Absolute Immature Granulocytes 0.1 10^3/uL (0-0.05); Absolute Lymphocytes 2.2 10^3/uL (1.2-3.4); Absolute Monocytes 0.9 10^3/uL (0.1-0.6); Absolute Neutrophils 6.5 10^3/uL (1.4-6.5); Hematocrit 33.7 % (37.0-47.0); Hemoglobin 11.4 g/dL (12.0-16.0); Mean Corp Hgb Conc. 33.8 g/dL (33.0-37.0); Mean Corpuscular Hgb 30.2 pg (27.0-31.0); Mean Corpuscular Volume 89.2 fL (81.0-99.0); Mean Platelet Volume 9.8 fL (7.4-10.4); Nucleated Red Blood Cells % 0 %; Platelet Count 288 10^3/uL (130-400); Red Blood Cell Count 3.78 10^6/uL (4.20-5.40); Red Cell Dist. Width 13.8 % (11.5-14.5); White Blood Cell Count 9.9 10^3/uL (4.8-10.8)
[2023-12-29 18:35] LABS: ALT (SGPT) 10 U/L (0-35); AST (SGOT) 18 U/L (14-36); Alkaline Phosphatase 83 U/L (38-126); Blood Urea Nitrogen 33 mg/dl (7-17); Calcium 9.4 mg/dl (8.4-10.2); Carbon Dioxide 21 mmol/L (22-30); Chloride 104 mmol/L (98-107); Glucose 100 mg/dl (70-99); Potassium 4.2 mmol/L (3.5-5.1); Sodium 142 mmol/L (135-145); Total Bilirubin 0.4 mg/dl (0.2-1.3); Total Protein 6.6 g/dl (6.3-8.2); eGFR 44.64
[2023-12-29 20:31] VITALS: BP 129/82
[2023-12-29 20:32] VITALS: BMI 35.2
[2023-12-29 21:02] LABS: Urine Albumin 3+ (Neg - Trace); Urine Bilirubin Negative (Negative); Urine Character Slightly Cloudy (Clear); Urine Color Red; Urine Glucose Negative (Negative); Urine Ketone Negative (Negative); Urine Leukocyte 2+ (Negative); Urine Nitrite Negative (Negative); Urine Occult Blood 4+ (Negative); Urine Urobilinogen Negative (Neg - 1+)
[2023-12-29 21:10] LABS: Urine Red Blood Cell >100 /HPF (0-2)
--- NOTE | 2023-12-29 21:26 | ED.GENMED ---
History of Present Illness
General
Chief Complaint: Urinary Symptoms
Time Seen by Provider: 12/29/23 20:17
History of Present Illness
History of Present Illness:
83-year-old male presents to the emergency department for evaluation of hematuria and dysuria ongoing for the past 2 weeks. States that she had been complaining of symptoms to her nursing staff at her nursing facility but the urinalysis was never
sent. She is on Eliquis due to A-fib. She has a long history of complicated UTIs and has previously required IV antibiotics. No fevers or chills
Past History
Past History
ED Past Medical History: Asthma and Other (Chronic daily headache, meningitis age 27)
Social History
Tobacco: Non-smoker
Alcohol: None
Drug: None
Living: assisted living
Employment: Retired
Family History
Family History: Other (Reviewed and noncontributory)
Review of Systems
Review of Systems
Allergies reviewed?: Yes
All Other Systems: ROS reviewed and negative except as documented in HPI and ROS
Phy Exam
Physical Exam
Physical Exam:
GEN: Well appearing, NAD, WDWN
HEENT: Oral mucosa moist, no scleral icterus
Cardiac: Regular rate
Lung: No respiratory distress, no tachypnea
MSK: No gross deformity or injuries
Skin: Good color, no pallor or jaundice, no rashes
Neuro: AO x3, moves all extremities freely
Psych: Calm, cooperative
Course
Orders/Labs/Results
Orders:
Orders
12/29/23 18:09
CMP [Comprehensive Metabolic Panel] Urgent
Complete Blood Count/With Diff Urgent
12/29/23 20:54
Urinalysis Reflex To Culture Urgent
Date Specimen was Collected: 12/29/23
Time Specimen was Collected: 20:15
Urine Microscopic Reflex Cult Urgent
Urine Culture Urgent
MELISA Source: U
Specimen Description:
Date Specimen was Collected: 12/29/23
Time Specimen was Collected: 20:15
12/29/23 21:18
Amoxicillin 875 mg/Clav 125 mg [Augmentin 875 mg/125 mg] 1 tablet PO NOW STA
Abnormal Lab Results
12/29/23 12/29/23
18:09 20:54
RBC 3.78 L 10^6/uL
(4.20-5.40)
Hgb 11.4 L g/dL
(12.0-16.0)
Hct 33.7 L %
(37.0-47.0)
Abs Immat Gran (auto) 0.1 H 10^3/uL
(0-0.05)
Absolute Monos (auto) 0.9 H 10^3/uL
(0.1-0.6)
Immature Gran % 0.9 H %
(0-0.5)
Carbon Dioxide 21 L mmol/L
(22-30)
BUN 33 H mg/dl
(7-17)
Creatinine 1.2 H mg/dL
(0.6-1.0)
Glucose 100 H mg/dl
(70-99)
Ur Occult Blood Reflex 4+ A
(Negative)
Leukocyte Esterase Rfl 2+ A
(Negative)
Urine RBC >100 A /HPF
(0-2)
Urine Albumin (Reflex) 3+ A
(Neg - Trace)
12/29/23 18:09
12/29/23 18:09
Vital Signs
Initial and Last Documented VS:
Initial Vital Signs
Temp Pulse Resp BP Pulse Ox
98.0 F 92 16 120/88 98
12/29/23 17:59 12/29/23 17:59 12/29/23 17:59 12/29/23 17:59 12/29/23 17:59
Last Documented Vital Signs
Temp Pulse Resp BP Pulse Ox
98.0 F 92 16 129/82 96
12/29/23 17:59 12/29/23 17:59 12/29/23 17:59 12/29/23 20:31 12/29/23 20:32
MDM/Problems Addressed
MDM/Problems Addressed:
Straight cath performed for proximately 250 cc of cloudy urine. Urinalysis is grossly bloody however given the lower urinary tract voiding symptoms we will treat as a UTI. Prior urine culture data reviewed, Augmentin should be satisfactory based
on previous results. She is clinically stable and suitable for outpatient management thus will start on p.o. antibiotic
*Critical Care Note
Total Time (30-74mins, 75-104mins- exclusive of procedures): Not Applicable
ED Attending Note
-
Portions of this chart may have been created with voice recognition software.� Occasional wrong word or��sound alike� substitutions may have occurred due to the inherent limitations of voice recognition software.
Discharge Plan
Departure
Patient Disposition: Home (Routine Discharge)
Date of Disposition: 12/29/23
Time of Disposition: 21:26
Patient with high blood pressure during this ER visit?: No
Discharge Problem:
Acute hemorrhagic cystitis
Instructions: Urinary Tract Infection, Adult (DC)
Prescriptions:
New
amoxicillin-pot clavulanate 875-125 mg tablet
1 tab PO BID 7 Days Qty: 14 0RF
No Action
meclizine 12.5 mg Tablet
12.5 mg PO DAILY
omeprazole 40 mg Capsule,Delayed Release(Dr/Ec)
40 mg PO DAILY@0600
acetaminophen 500 mg Tablet
500 mg PO HS
montelukast 10 mg Tablet
10 mg PO HS
albuterol sulfate 90 mcg/actuation Hfa Aerosol Inhaler
2 puff INHALATION R DAILYPRN PRN (Reason: shortness of breath)
levothyroxine 112 mcg Tablet
112 mcg PO DAILY@0600
magnesium glycinate 100 mg magnesium Capsule
100 mg PO DAILY
acetaminophen [Tylenol] 325 mg Tablet
650 mg PO Q4HPRN MDD 3000 mg PRN (Reason: mild pain/fever)
meclizine 12.5 mg Tablet
12.5 mg PO Q8HPRN PRN (Reason: dizziness)
lisinopril 10 mg Tablet
10 mg PO BID
propranolol 20 mg Tablet
20 mg PO BID@0800,1700
fluoxetine 20 mg Capsule
60 mg PO DAILY
fluticasone furoate-vilanterol [Breo Ellipta] 100-25 mcg/dose Blister With Device
1 inh INHALATION R DAILY
diltiazem HCl 120 mg Capsule,Extended Release 24hr
120 mg PO DAILY 30 Days Qty: 30 0RF
Eliquis 5 mg Tablet
5 mg PO BID 30 Days Qty: 60 0RF
prednisone 10 mg tablet
10 mg PO DIRECTED Qty: 20 0RF
Rx Instructions:
4 tabs daily x2 days, 3 tabs daily x2 days, 2 tabs daily x2 days, 1 tab daily x2days.
sulfamethoxazole-trimethoprim [Bactrim DS] 800-160 mg tablet
1 tab PO BID Qty: 6 0RF
furosemide 20 mg tablet
20 mg PO DAILY Qty: 30 0RF
Referrals:
Hank Chaudhari MD [Family Provider] -
Interventions
Interventions:
*Risk Screen - Suicide Last Done: 12/29/23 18:00
*General Assessment Last Done: 12/29/23 18:00
*Neglect/Abuse Screening Last Done: 12/29/23 18:02
ED- Fall Risk Assessment Last Done: 12/29/23 21:51
*ED COVID-19 Vaccine History Last Done: 12/29/23 21:51
*Nursing Disposition Last Done: 12/29/23 21:51
ED-Female Genitourinary Assessment Last Done: 12/29/23 20:37
Discharge Date and Time
Discharge Date/Time: 12/29/23 21:54
Print Language: BURKINAN
[2023-12-29] MEDS: AUGMENTIN 875 MG/125 MG 1 TABLET PO (21:41)
== END 2023-12-29 21:54 | disposition home or self-care (01) ==
LOC: EMR 17:34
PROVIDERS: Clinical Nurse Specialist Family Health; Emergency Medicine; EMERGENCY PHYSICIAN Student in an Organized Health Care Education/Training Program; FAMILY PHYSICIAN Family Medicine
DX: N30.01 Acute cystitis with hematuria (principal)
CPT/HCPCS: 99283; 51798; 51701; 80053; 81003; 81015; 85025; 87077; 87086; 87186

== ENCOUNTER → 2024-02-09 10:28 | Outpatient (REF) | payer OTHER, SELFPAY ==
[2024-02-09 11:26] LABS: Hematocrit 30.9 % (37.0-47.0); Hemoglobin 10.2 g/dL (12.0-16.0); Mean Corpuscular Hgb 30.5 pg (27.0-31.0); Mean Corpuscular Volume 92.5 fL (81.0-99.0); Mean Platelet Volume 10.4 fL (7.4-10.4); Platelet Count 344 10^3/uL (130-400); Red Blood Cell Count 3.34 10^6/uL (4.20-5.40); Red Cell Dist. Width 13.1 % (11.5-14.5); White Blood Cell Count 8.1 10^3/uL (4.8-10.8)
[2024-02-09 11:44] LABS: ALT (SGPT) 14 U/L (0-35); AST (SGOT) 20 U/L (14-36); Albumin 3.3 g/dl (3.5-5.0); Alkaline Phosphatase 70 U/L (38-126); Blood Urea Nitrogen 38 mg/dl (7-17); Calcium 9.2 mg/dl (8.4-10.2); Carbon Dioxide 25 mmol/L (22-30); Chloride 105 mmol/L (98-107); Glucose 92 mg/dl (70-99); Magnesium 1.9 mg/dl (1.6-2.3); Potassium 4.9 mmol/L (3.5-5.1); Sodium 140 mmol/L (135-145); Total Bilirubin 0.4 mg/dl (0.2-1.3); Total Protein 5.8 g/dl (6.3-8.2); eGFR 49.55
== END ==
LOC: OLABWHC 10:28
PROVIDERS: ATTENDING PHYSICIAN Family Medicine
DX: N18.9 Chronic kidney disease, unspecified (principal); N39.0 Urinary tract infection, site not specified; I48.91 Unspecified atrial fibrillation; B96.1 Klebsiella pneumoniae [K. pneumoniae] as the cause of diseases classified elsewhere; I10 Essential (primary) hypertension
CPT/HCPCS: 36415; 80053; 83735; 85027

== ENCOUNTER → 2024-02-29 09:53 | Outpatient (REF) | payer OTHER, SELFPAY ==
[2024-02-29 10:46] LABS: Hematocrit 33.2 % (37.0-47.0); Hemoglobin 10.8 g/dL (12.0-16.0); Mean Corp Hgb Conc. 32.5 g/dL (33.0-37.0); Mean Corpuscular Hgb 29.1 pg (27.0-31.0); Mean Corpuscular Volume 89.5 fL (81.0-99.0); Mean Platelet Volume 10.3 fL (7.4-10.4); Platelet Count 283 10^3/uL (130-400); Red Blood Cell Count 3.71 10^6/uL (4.20-5.40); Red Cell Dist. Width 14.4 % (11.5-14.5); White Blood Cell Count 7.7 10^3/uL (4.8-10.8)
[2024-02-29 11:23] LABS: Blood Urea Nitrogen 28 mg/dl (7-17); Calcium 9.3 mg/dl (8.4-10.2); Carbon Dioxide 23 mmol/L (22-30); Chloride 105 mmol/L (98-107); Glucose 88 mg/dl (70-99); Magnesium 1.8 mg/dl (1.6-2.3); Potassium 4.1 mmol/L (3.5-5.1); Sodium 144 mmol/L (135-145); eGFR 55.55
[2024-02-29 11:53] LABS: TSH Reflex To Free T4 0.31 uIU/ml (0.47-4.68)
[2024-02-29 12:24] LABS: Free T4 1.83 ng/dl (0.78-2.19)
== END ==
LOC: OLABWHC 09:53
PROVIDERS: ATTENDING PHYSICIAN Family Medicine
DX: E03.9 Hypothyroidism, unspecified (principal); I10 Essential (primary) hypertension
CPT/HCPCS: 36415; 80048; 83735; 84439; 84443; 85027